=== PATIENT | male | born 1940 | race Caucasian/White ===

== ENCOUNTER 2020-03-18 14:59 | Outpatient (CLI) | payer MEDICARE, SELFPAY | END 2020-03-18 15:00 | disposition home or self-care (01) | LOC: ANHAUDIO 15:02 | PROVIDERS: PCP Internal Medicine; Visit Provider Otolaryngology | DX: H90.3 Sensorineural hearing loss, bilateral (principal) | CPT/HCPCS: 92557; 92567 ==

== ENCOUNTER 2020-05-15 11:30 | Outpatient (RCR) | payer MEDICARE, SELFPAY | END 2020-05-15 23:59 | disposition home or self-care (01) | LOC: ANHAUDIO 11:30 | PROVIDERS: PCP Internal Medicine | DX: Z46.1 Encounter for fitting and adjustment of hearing aid (principal) | CPT/HCPCS: 99199; V5261 ==

== ENCOUNTER 2020-06-20 15:54 | Inpatient (IN) | payer MEDICARE, SELFPAY ==
[2020-06-20] VITALS (32 sets, daily range): BP systolic 84–145; BP diastolic 60–91; PULSE 103–134; RESP 16–31; TEMP 36.2–36.8; O2SAT 90–100; BMI 27.7; BMI 27.6
--- NOTE | ~2020-06-20 | XR_ITS ---
EXAMINATION: XR chest 2V DATE: 06/20/2020 16:59 INDICATION: Shortness of breath. TECHNIQUE: Frontal and lateral views of the chest were obtained. COMPARISON: CT abdomen and pelvis 11/21/2018 FINDINGS: Calcified bilateral lung nodules and calcified hilar and mediastinal lymph nodes are consis tent with old granulomatous disease. No pleural effusion or pneumothorax. The heart size is normal. IMPRESSION: 1. No acute cardiopulmonary disease. Reviewed, dictated and finalized at location A. ICE VOLUNTEER COORDINATOR
--- NOTE | ~2020-06-20 | CT_ITS ---
EXAMINATION: CTA chest PE abdomen pel DATE: 06/20/2020 18:20 INDICATION: Shortness of breath. Lower abdominal pain. TECHNIQUE: Computed tomography angiography (CTA) of the chest was performed with 100 mL Omnipaque-350 intravenous contrast timed to evaluate the pulmonary arteries. Coronal maximum intensity projection 3D-reconstructions were created by the technologist. Computed tomography (CT) of the abdomen and pelv is was performed with intravenous contrast. Automated exposure control and iterative reconstruction t echnique were employed. The dose-length product was 1015.11 mGy-cm. COMPARISON: CT abdomen and pelvis 11/21/2018 FINDINGS: CTA chest: There is mild scarring at the lung apices. Calcified pulmonary nodules and calcified hilar and mediastinal lymph nodes are consistent with old granulomatous disease. There are [place] in right lower lobe, consistent with mild pneumonia. No pleural effusion. The heart size is no rmal. There are coronary artery calcifications. No pericardial effusion. There are calcifications of the aortic valve. There is no pulmonary embolus. There is a small sliding hiatal hernia. CT abdomen and pelvis: Calcifications in the liver and spleen are consistent with old granulomatous d isease. There are changes of cholecystectomy. The pancreas and adrenal glands are normal. There are c ysts in the kidneys measuring up to 16 mm on the right. There is a 3 mm stone in left kidney. The pro state is mildly enlarged. There are no dilated loops of bowel. The appendix is normal. There are no p athologically enlarged lymph nodes. There is no free intraperitoneal fluid. There is severe lumbar sp ondylosis. IMPRESSION: 1. No pulmonary embolus. 2. Mild pneumonia in right lower lobe. 3. Small sliding hiatal hernia. Reviewed, dictated and finalized at location A. ICATIONS DEVELOPMENT CONSULTANT
--- NOTE | 2020-06-20 16:19 | ECG_ITS ---
Measurements Intervals Sharon Rate: 106 P: SD: 0 QRS: 50 QRSD: 92 T: 50 QT: 320 QTc: 427 Interpretive Statements ATRIAL FIBRILLATION WITH RAPID VENTRICULAR RESPONSE BASELINE ARTIFACT- V1 ABNORMAL ECG Electronically Signed On 06-20-2020 17:12:06 [facility]OPE MINER by Chip Saavedra D.O.
--- NOTE | 2020-06-20 16:30 | PC.NURSE ---
patient brought back to ED room 1 with c/o dyspnea on exertion, abdomen pain and increased depression and increased stress. see initial notes. patient did admit to feeling depressed and thinking about suicide , but states he would never act on these thoughts. recently diagnosed with diabetes himself and cares for his with dementia. assessments documented. resting on stretcher. denies pain now. denies N/V/D. alert. oriented. family member in room. labs pending. on vehicle monitor technician. HR 100-110's.
--- NOTE | 2020-06-20 16:30 | PC.NURSE ---
Addendum entered by Bisi Casper RN 06/21/20 12:40: note time: 1645 Original Note: at bedside to have discussion with patient regarding his depression and statements made to admission RN. son in room also. patient states that his depression is increased due to new diagnosis of diabetes and his ongoing care of his with dementia. he does think about not waking up but does not have a plan to harm himself or his . just feels overwhelmed with life at this time. does have support from family. son in room seems receptive to patient's statements. patient reassured that diagnosis is manageable. provider updated. no need for closer monitoring at this time. son remaining in room.
--- NOTE | 2020-06-20 16:39 | ED.SOB ---
HPI - SOB/Dyspnea General Chief Complaint: Shortness of Breath/Dyspnea Stated Complaint: Pain All Over, SOB with Movement Time Seen by Provider: 06/20/20 16:37 Source: patient Mode of arrival: ambulatory Limitations: no limitations History of Present Illness HPI Narrative: Patient 70-year-old male complaining of shortness of breath, worse with exertion, been going on for a while but worse for the past few days. Patient also complaining of lower abdominal pain and right flank pain, 6 out of 10, nonradiating, described as dull ache. Patient mentioned to the nurse during screening that he was having thoughts of suicide but has no plans, states that he has been stressed lately and after just recently been diagnosed with diabetes and especially his has dementia and he has been taking care of her, states that he is just stress and has no intention or plan on hurting himself or others, who has not had that thought in their lives . Patient denies any chest pain, nausea, vomiting, diarrhea, fever or chills. Related Data Home Medications Medication Instructions Recorded Confirmed aspirin 81 mg tablet,delayed 81 mg PO DAILY 03/04/20 release atorvastatin 80 mg tablet 80 mg PO DAILY 03/04/20 clopidogrel 75 mg tablet 75 mg PO DAILY 03/04/20 ezetimibe 10 mg tablet 10 mg PO DAILY 03/04/20 irbesartan 150 mg tablet 150 mg PO DAILY 03/04/20 tamsulosin 0.4 mg capsule 0.4 mg PO DAILY 03/04/20 atenolol 50 mg DAILY 06/20/20 escitalopram oxalate 20 mg DAILY 06/20/20 metformin mg PO 06/20/20 nystatin TOPICAL 06/20/20 tamsulosin mg PO 06/20/20 Allergies Allergy/AdvReac Type Severity Reaction Status Date / Time No Known Allergies Allergy Unknown Unknown Verified 03/04/20 15:24 Review of Systems Review of Systems: All systems reviewed & are unremarkable except as noted in HPI and below Constitutional: Constitutional: Denies chills, Denies excessive sweating, Denies fatigue, Denies fever(s), Denies headache(s), Denies lethargy, Denies malaise, Denies weakness and Denies weight loss Eyes: Eyes: Denies blurry vision, Denies change in vision and Denies loss of vision ENT: Denies dizziness, Denies ear discharge, Denies headache(s), Denies lip swelling, Denies epistaxis, Denies nasal congestion, Denies neck pain, Denies throat swelling and Denies tongue swelling Cardiovascular: Cardiovascular: Denies chest pain, Denies chest pain at rest, Denies chest pain with activity, Denies diaphoresis, Denies rapid heart rate, Denies edema, Denies irregular heart rhythm, Denies lightheadedness and Denies palpitations Respiratory: Respiratory: Denies chest congestion, Denies cough and Denies hemoptysis Gastrointestinal: Gastrointestinal: Denies melena, Denies hematochezia, Denies diarrhea, Denies nausea, Denies vomiting and Denies hematemesis Musculoskeletal: Musculoskeletal: Denies abnormal gait, Denies deformity, Denies joint swelling, Denies limited range of motion, Denies neck pain and Denies numbness Neurologic: Denies Abnormal speech present, Denies abnormal gait, Denies confusion, Denies dizziness, Denies headache(s), Denies focal weakness, Denies loss of vision, Denies numbness, Denies Other visual disturbances, Denies Sensory deficit (Neuro) and Denies weakness Psychiatric: Psychiatric: Denies confusion, Denies depression, Denies auditory hallucinations, Denies homicidal ideation and Denies suicidal ideation Endocrine: Endocrine: Denies cold intolerance, Denies excessive sweating, Denies fatigue, Denies heat intolerance and Denies palpitations Hematologic/Lymphatic: Hematologic/Lymphatic: Denies easy bleeding and Denies easy bruising Allergic/Immunologic: Allergic/Immunologic: Denies lip swelling, Denies throat swelling and Denies tongue swelling Exam Const: General: cooperative, healthy appearing, comfortable, no acute distress, well developed, alert and awake; No confusion Orientation/consciousness: oriented to person, oriented to place,
[2020-06-20 16:53] LABS: Basophils Absolute Auto 0.1 K/mm3 (0.0-0.1); Basophils Percent Auto 0.4 % (0.2-1.2); Eosinophils Absolute Auto 0.1 K/mm3 (0-0.3); Eosinophils Percent Auto 0.7 % (0-4.4); Hematocrit 34.1 % (42.0-52.0); Hemoglobin 11.3 g/dL (14.0-18.0); Immature Granulocyte Absolute 0.05 K/mm3 (0.00-0.031); Immature Granulocyte Percent A 0.4 % (0-0.5); Lymphocytes Absolute Auto 1.89 K/mm3 (0.9-3.2); Mean Corpuscular HGB Conc 33.1 g/dl (32-36); Mean Corpuscular Volume 87.4 fl (80-100); Mean Platelet Volume 10.2 fl (7.4-10.4); Monocytes Absolute Auto 0.9 K/mm3 (0.1-0.6); Monocytes Percent Auto 6.8 % (2.6-8.5); Neutrophils Absolute Auto 10.5 K/mm3 (1.3-6.7); Neutrophils Percent Auto 77.7 % (45.5-73.1); Platelet Count Result 276 k/mm3 (150-375); Red Cell Distribution Width 13.9 % (11.5-14.5); White Blood Count 13.5 K/mm3 (4.5-10.0)
--- NOTE | 2020-06-20 17:00 | PC.NURSE ---
EKG done. shows afib. patient in ST on monitor. patient assisted to stand at bedside. HR ST in 150's. aware. strips on chart.
[2020-06-20 17:14] LABS: Anion Gap 12 mmol/L (8-16); Blood Urea Nitrogen 49 mg/dL (9-20); Calcium 8.2 mg/dL (8.4-10.2); Carbon Dioxide 22 mmol/L (22-30); Chloride 103 mmol/L (98-107); Estimated CRCL calculation 51 ml/min; Estimated Glomerular Filt Rate > 60; Glucose 163 mg/dL (75-110); Potassium 4.5 mmol/L (3.4-5.0); Sodium 137 mmol/L (137-145)
[2020-06-20 17:24] LABS: Alveolar/Arterial O2 Gradient 21.6 mmHg; Base Excess ABG -2.4 mEq/l (+/-2.0); Carboxyhemoglobin 0.3 % THb (0-2.0); Device ROOM AIR; Fractional Inspired Oxygen 21 %; HCO3 ABG 20.3 mEq/l (22.0-26.0); Methemoglobin ABG 0.4 %THb (0-1.5); Modified Allen's Test Pass; Oxygen Content ABG 15.8 %vol (16.0-22.0); Oxygen Saturation ABG 97.6 % (95.0-100.0); Oxyhemoglobin 96.2 % THb (90.0-100.0); PO2 ABG 93.4 mmHg (80.0-100.0); PO2 FiO2 Ratio Arterial Blood 4.45 %; Reduced Hemoglobin 3.1 %THb (0-5.0); Site Drawn LEFT RADIAL; Total Hemoglobin 11.6 g/dL (12.0-18.0); pH ABG 7.464 (7.350-7.450)
--- NOTE | 2020-06-20 17:26 | PC.NURSE ---
provider in room.
[2020-06-20 17:30] LABS: NT Pro B Type Natriuretic Pept 85 PG/ML (5-100); Troponin I < 0.012 ng/mL (0.000-0.034)
--- NOTE | 2020-06-20 17:45 | PC.NURSE ---
patient assisted to stand at bedside to void. HR up to 150. patient aware to not get out of bed alone. side rails up x 2. back on cardiac cath lab manager. call light in reach. discussed current treatment plan with patient and family member.
[2020-06-20 18:11] LABS: Prothrombin Time 13.8 Seconds (11.1-14.7)
[2020-06-20 18:12] LABS: Partial Thromboplastin Time 27.8 SECONDS (22.3-36.8)
[2020-06-20 18:14] LABS: D Dimer 0.51 ug/mL (<0.48)
[2020-06-20 18:20] LABS: Lactic Acid Reflex 3.9 mmol/L (0.7-2.1)
--- NOTE | 2020-06-20 18:30 | PC.NURSE ---
patient given ice water. all tests resulted. waiting for further orders vs disposition from provider.
[2020-06-20] MEDS: LACTATED RINGERS 1,000 ML 999 ML IV CONT (19:09)
--- NOTE | 2020-06-20 20:30 | PC.NURSE ---
IVF and IV antibiotics started. all explained to patient and family member at bedside. reviewed CXR and CT of chest.
[2020-06-20 20:41] LABS: Glucose Point of Care 210 (65-105)
--- NOTE | 2020-06-20 21:00 | PC.NURSE ---
patient standing at bedside frequently to use urinal. states this started recently. diagnosed with diabetes recently. Hgb A1c 8.5 per his son. reviewed admission orders and diet order with son and patient.
[2020-06-20 21:07] LABS: Reflex Lactic Acid Yes or No Add Lactic
--- NOTE | 2020-06-20 22:00 | PC.NURSE ---
IVF done. patient had total of 2600ml of LR plus IV antibiotics. resting on stretcher. on telecommunications network planner. watching football game. using call light for help to use urinal. family member went home. lights off per request. aware of current treatment plan. waiting for bed assignment for admission upstairs.
--- NOTE | 2020-06-20 22:23 | PC.NURSE ---
patient keeps removing his BP cuff. assigned to room 202. SBAR faxed and tubed.
--- NOTE | 2020-06-20 22:47 | PC.NURSE ---
report given to Angélica in IMU. will transfer patient to 202.
--- NOTE | 2020-06-20 23:08 | ADMGEN ---
This patient, Robert Brady, was admitted to IMU Room 202-01. Patient/family oriented to hospital policies and general routines including ID bracelet, bed and alarms, visiting hours, pain management, procedures, bathroom and other care routines, personal items, smoking policy, room service/diet, and visiting hours. Information on how to activate the Rapid Response Team has been discussed. Patient/Family are encouraged to report perceived risks to care and to ask questions if they do not understand what they are told or what they should do.
[2020-06-21] VITALS (23 sets, daily range): BP systolic 104–156; BP diastolic 57–77; PULSE 70–118; RESP 14–20; TEMP 36–37; O2SAT 98–100
[2020-06-21] MEDS: LACTATED RINGERS 1,000 ML 100 ML IV CONT ×2 (00:03→18:06)
[2020-06-21 04:26] LABS: Hemoglobin 7.4 g/dL (14.0-18.0); Mean Corpuscular HGB Conc 32.2 g/dl (32-36); Mean Corpuscular Hemoglobin 29.1 pg (26-34); Mean Corpuscular Volume 90.6 fl (80-100); Mean Platelet Volume 10.3 fl (7.4-10.4); Platelet Count Result 211 k/mm3 (150-375); Red Blood Count 2.54 M/mm3 (4.6-6.20); Red Cell Distribution Width 14.3 % (11.5-14.5); White Blood Count 10.9 K/mm3 (4.5-10.0)
[2020-06-21 04:46] LABS: Anion Gap 5 mmol/L (8-16); Blood Urea Nitrogen 50 mg/dL (9-20); Calcium 7.5 mg/dL (8.4-10.2); Carbon Dioxide 25 mmol/L (22-30); Chloride 107 mmol/L (98-107); Estimated CRCL calculation 63 ml/min; Estimated Glomerular Filt Rate > 60; Glucose 153 mg/dL (75-110); Lactic Acid Reflex 1.7 mmol/L (0.7-2.1); Potassium 4.7 mmol/L (3.4-5.0); Sodium 137 mmol/L (137-145)
--- NOTE | 2020-06-21 07:31 | PM.IMHP ---
H&P: HPI History of Present Illness Date/Time: 06/21/20 05:00 Chief Complaint: Shortness of breath Narrative: Robert Brady is a 80 year old male with a past medical history of coronary artery disease, recent carotid stent placement, essential hypertension, hiatal hernia, and prior esophageal stricture who presented to the ER with dyspnea on exertion. The patient reports that he has been having dyspnea on exertion for a while but it is been worse over the last 7 days. He denies any palpitations or chest pain. He has not noticed any cough, congestion or lower extremity swelling. He has not had any recent ill contacts and denies COVID-19 exposure. He has been staying at home and if he does half to go out he does wear a mask practices social distancing. He was reporting some lower abdominal pain and right flank pain in the ER. He reported the pain was a 6/10 in intensity and nonradiating. He reports that the pain was a dull ache. At the time my evaluation the patient denied having any abdominal pain but did admit to having some abdominal pain yesterday. He denied any eliciting or relieving factors. He has been noticing an increased number of stools each day for the last week. He reports that the stools are darker than usual. It has been associated with some lightheadedness and worsening dyspnea on exertion. He reported that last evening when he would try did get up to use the urinal he would feel lightheaded. He has been using the urinal more frequently for the last several weeks he. He was recently diagnosed with type 2 diabetes mellitus with a hemoglobin A1c of 8.5 as outpatient. He was started on metformin. His glucoses were in target range in the ER. He reports that since his diabetes diagnosis he has had increased urinary frequency with sensation of incomplete bladder emptying. He denies any hematuria or dysuria. He is urinating about 100 mL at a time. He reports increased stress at home as the is suffering from dementia. He had reported some suicidal thoughts and does have an access to a gun at home. He reports that he has just been under increased stress and has no intention of actually hurting himself or anyone else. He denies any nausea, vomiting or diarrhea. He has not noticed any fevers or chills. He does have a history of esophageal stricture but denies any difficulty swallowing food or sore throat. He has not been having any symptoms of heartburn. Review of Systems Review of Systems: Narrative: 12 systems were reviewed with pertinent positives and negatives per HPI. Except as documented in the HPI, all other systems were reviewed and are negative. [facility] Past Medical History Medical History (Updated 06/21/20 @ 07:59 by Sandie Burks DO) Aortic stenosis BPH (benign prostatic hyperplasia) Carotid stenosis Depression Diabetes mellitus Hemoglobin A1c of 8.5 Essential hypertension Hearing loss Hiatal hernia Hyperlipidemia Surgical History Surgical History (Updated 06/21/20 @ 07:56 by Sandie Burks DO) History of bilateral cataract extraction Approximately 2009 History of laparoscopic cholecystectomy History of right common carotid artery stent placement History of total left knee replacement Status post dilatation of esophageal stricture Family History Family History Mother Cerebrovascular accident Social History Social History (Updated 06/21/20 @ 08:12 by Sandie Burks DO) Social History: The patient and his have been for the last 55 years. They have 3 adult sons who are in good health. He is a former smoker quit smoking about 25 years ago. He used to drink heavily in his youth but has not drank heavily in the last several years. He drinks about 6 beers a year at this time. He denies any illicit substance use. He served in the [employer] for 3 years and then retired from [employer]. Primary care physician:
[2020-06-21 07:51] LABS: Glucose Point of Care 168 (65-105)
[2020-06-21 08:34] LABS: IFOB Positive Control Positive; Immunochemical Fecal Occult Bl Positive (N)
[2020-06-21 09:48] LABS: Immature Reticulocyte Fraction 17.8 % (3.0-15.9); Reticulocyte Hemoglobin Conten 33.3 pg (28.2-35.7); Reticulocyte Percent 2.79 % (0.7-4.3); Reticulocytes Absolute 0.07 B/L (32.2-175.7)
[2020-06-21] MEDS: PANTOPRAZOLE SODIUM IV 40 MG VIAL IV PUSH ×2 (10:24→20:33)
[2020-06-21] MEDS: ATORVASTATIN 40 MG TABLET 80 MG PO (10:25)
[2020-06-21] MEDS: EZETIMIBE 10 MG TABLET PO (10:25)
[2020-06-21] MEDS: TAMSULOSIN HCL 0.4 MG CAPSULE PO (10:25)
[2020-06-21 10:53] LABS: Lactate Dehydrogenase 311 U/L (313-618)
[2020-06-21 11:00] LABS: Transferrin 171 mg/dL (206-381)
[2020-06-21 11:17] LABS: Iron 151 ug/dL (49-181)
[2020-06-21 11:27] LABS: Percent Iron Saturation 60 % (20-50)
[2020-06-21 12:00] LABS: Folic Acid 6.5 ng/mL (2.76->20)
[2020-06-21 12:51] LABS: Glucose Point of Care 202 (65-105)
[2020-06-21] MEDS: METOPROLOL TARTRATE 25 MG TABLET PO (13:37)
--- NOTE | 2020-06-21 14:28 | PM.IMPN ---
Progress Note: A&P Assessment and Plan (1) Gastrointestinal bleeding: Qualifiers: GI bleed type/associated pathology: melena Qualified Code(s): K92.1 - Melena Code(s): K92.2 - Gastrointestinal hemorrhage, unspecified Status: Acute Assessment and Plan: PPI therapy bowel rest IV fluid serial H&H and transfuse as needed GI evaluation (2) Pneumonia: Qualifiers: Laterality: unspecified laterality Lung location: unspecified part of lung Pneumonia type: due to unspecified organism Qualified Code(s): J18.9 - Pneumonia, unspecified organism Code(s): J18.9 - Pneumonia, unspecified organism Status: Acute Assessment and Plan: continue azithromycin and ceftriaxone COVID-19 swab results pending (3) Atrial fibrillation with rapid ventricular response: Code(s): I48.91 - Unspecified atrial fibrillation Status: Acute Assessment and Plan: resolved with fluids and transfusion no anticoagulation or anti-platelet agents due to gastrointestinal bleeding (4) Sepsis: Qualifiers: Sepsis acute organ dysfunction status: unspecified Sepsis type: sepsis due to unspecified organism Qualified Code(s): A41.9 - Sepsis, unspecified organism Code(s): A41.9 - Sepsis, unspecified organism Status: Acute Assessment and Plan: resolved (5) Anemia: Qualifiers: Anemia type: unspecified type Qualified Code(s): D64.9 - Anemia, unspecified Code(s): D64.9 - Anemia, unspecified Status: Acute Assessment and Plan: due to acute GI blood loss transfuse 3 units packed cells serial H&H (6) Benign prostatic hyperplasia with urinary frequency: Code(s): N40.1 - Benign prostatic hyperplasia with lower urinary tract symptoms; R35.0 - Frequency of micturition Status: Acute (7) Diabetes mellitus: Qualifiers: Diabetes mellitus type: type 2 Diabetes mellitus chcf insulin use: without manager terminal use Diabetes mellitus complication status: without complication Qualified Code(s): E11.9 - Type 2 diabetes mellitus without complications Code(s): E11.9 - Type 2 diabetes mellitus without complications Status: Inactive (8) Lactic acidosis: Code(s): E87.2 - Acidosis Status: Acute Assessment and Plan: resolved (9) Depression: Qualifiers: Depression Type: major depressive disorder Major depression recurrence: single episode Active/Remission status: currently active Major depression episode severity: moderate Qualified Code(s): F32.1 - Major depressive disorder, single episode, moderate Code(s): F32.9 - Major depressive disorder, single episode, unspecified Status: Inactive Subjective Date/time seen: 06/21/20 14:28 Interval history: Admitted June 20 with gastrointestinal bleeding. Weakness. 06/21 feels weak and short of breath with any activity. Denied pain. Stools dark. Review of Systems Review of Systems: All systems reviewed & are unremarkable except as noted in HPI and below Exam Narrative: Exam Narrative: HEENT: EOMI, PERRL, sclerae nonicteric, pharyngeal mucosa pink and intact NECK: No JVD CHEST: Coarse breath sounds right anterior chest Normal effort. HEART: NL S1/S2, regular, no murmur ABDOMEN: BS+, soft, nontender, no mass, no bruits EXTREMITIES: No cyanosis, edema, or clubbing NEUROLOGIC: CN intact and symmetric to inspection. MUSCULOSKELETAL: Tone and strength symmetric. PSYCH: Alert. Oriented to person, place, and time. Objective Data Vital Signs Vital Signs: Vital Signs - 24 hr 06/20/20 15:58 06/20/20 16:18 06/20/20 16:19 Temperature 97.1 F L Pulse Rate 109 H 112 H 105 H Respiratory Rate 24 H 28 H 21 H Blood Pressure 110/66 144/91 H Pulse Oximetry 98 90 97 06/20/20 16:30 06/20/20 16:31 06/20/20 16:58 Temperature Pulse Rate 108 H 114 H 108 H Respiratory Rate 28 H
[2020-06-21 17:40] LABS: Hemoglobin 11.1 g/dL (14.0-18.0)
[2020-06-21 17:48] LABS: Glucose Point of Care 157 (65-105)
[2020-06-21] MEDS: CYANOCOBALAMIN INJ 1,000 MCG/ML VIAL 1000 MCG IM (18:06)
[2020-06-21 20:46] LABS: Glucose Point of Care 162 (65-105)
[2020-06-21 21:55] LABS: Hematocrit 28.4 % (42.0-52.0); Hemoglobin 9.7 g/dL (14.0-18.0)
[2020-06-22] VITALS (16 sets, daily range): BP systolic 95–129; BP diastolic 49–72; PULSE 80–108; RESP 14–20; TEMP 36–36.7; O2SAT 93–100
[2020-06-22] MEDS: LACTATED RINGERS 1,000 ML 100 ML IV CONT ×2 (04:45→13:44)
[2020-06-22 05:25] LABS: Hematocrit 26.8 % (42.0-52.0); Mean Corpuscular HGB Conc 33.6 g/dl (32-36); Mean Corpuscular Hemoglobin 30.1 pg (26-34); Mean Corpuscular Volume 89.6 fl (80-100); Mean Platelet Volume 10.6 fl (7.4-10.4); Platelet Count Result 152 k/mm3 (150-375); Red Blood Count 2.99 M/mm3 (4.6-6.20); White Blood Count 11.5 K/mm3 (4.5-10.0)
[2020-06-22 05:37] LABS: Anion Gap 2 mmol/L (8-16); Blood Urea Nitrogen 40 mg/dL (9-20); Calcium 7.7 mg/dL (8.4-10.2); Carbon Dioxide 27 mmol/L (22-30); Chloride 107 mmol/L (98-107); Estimated CRCL calculation 71 ml/min; Estimated Glomerular Filt Rate > 60; Glucose 158 mg/dL (75-110); Sodium 136 mmol/L (137-145)
[2020-06-22 08:21] LABS: Glucose Point of Care 136 (65-105)
[2020-06-22] MEDS: PANTOPRAZOLE SODIUM IV 40 MG VIAL IV PUSH ×2 (08:25→19:49)
[2020-06-22] MEDS: ATORVASTATIN 40 MG TABLET 80 MG PO (08:25)
[2020-06-22] MEDS: METOPROLOL TARTRATE 25 MG TABLET PO ×2 (08:25→19:49)
[2020-06-22] MEDS: EZETIMIBE 10 MG TABLET PO (08:25)
[2020-06-22] MEDS: TAMSULOSIN HCL 0.4 MG CAPSULE PO (08:25)
[2020-06-22] MEDS: FOLIC ACID 1 MG/0.2 ML INJ IV PUSH (10:48)
--- NOTE | 2020-06-22 12:50 | PM.IMPN ---
Progress Note: A&P Assessment and Plan (1) Gastrointestinal bleeding: Qualifiers: GI bleed type/associated pathology: melena Qualified Code(s): K92.1 - Melena Code(s): K92.2 - Gastrointestinal hemorrhage, unspecified Status: Acute Assessment and Plan: PPI therapy sp blood tranfusion GI evaluation hold plavix (2) Pneumonia: Qualifiers: Laterality: unspecified laterality Lung location: unspecified part of lung Pneumonia type: due to unspecified organism Qualified Code(s): J18.9 - Pneumonia, unspecified organism Code(s): J18.9 - Pneumonia, unspecified organism Status: Acute Assessment and Plan: continue azithromycin and ceftriaxone COVID-19 swab results pending (3) Atrial fibrillation with rapid ventricular response: Code(s): I48.91 - Unspecified atrial fibrillation Status: Acute Assessment and Plan: resolved with fluids and transfusion no anticoagulation or anti-platelet agents due to gastrointestinal bleeding (4) Sepsis: Qualifiers: Sepsis acute organ dysfunction status: unspecified Sepsis type: sepsis due to unspecified organism Qualified Code(s): A41.9 - Sepsis, unspecified organism Code(s): A41.9 - Sepsis, unspecified organism Status: Acute Assessment and Plan: resolved (5) Anemia: Qualifiers: Anemia type: unspecified type Qualified Code(s): D64.9 - Anemia, unspecified Code(s): D64.9 - Anemia, unspecified Status: Acute Assessment and Plan: due to acute GI blood loss transfuse 3 units packed cells serial H&H (6) Benign prostatic hyperplasia with urinary frequency: Code(s): N40.1 - Benign prostatic hyperplasia with lower urinary tract symptoms; R35.0 - Frequency of micturition Status: Acute (7) Diabetes mellitus: Qualifiers: Diabetes mellitus type: type 2 Diabetes mellitus rat exterminator insulin use: without senior living use Diabetes mellitus complication status: without complication Qualified Code(s): E11.9 - Type 2 diabetes mellitus without complications Code(s): E11.9 - Type 2 diabetes mellitus without complications Status: Inactive (8) Lactic acidosis: Code(s): E87.2 - Acidosis Status: Acute Assessment and Plan: resolved (9) Depression: Qualifiers: Depression Type: major depressive disorder Major depression recurrence: single episode Active/Remission status: currently active Major depression episode severity: moderate Qualified Code(s): F32.1 - Major depressive disorder, single episode, moderate Code(s): F32.9 - Major depressive disorder, single episode, unspecified Status: Inactive Subjective Date/time seen: 06/22/20 12:50 Interval history: Admitted June 20 with gastrointestinal bleeding. Weakness. Awaiting covid result. hb is 9, few black tarry bowel movements, had blood transfusion, pt is awaiting to see GI doctor, pt is currently npo and is pt feels hungry. Pt can eat pt for scopes tomorrow. FOBT is positive. Review of Systems Review of Systems: All systems reviewed & are unremarkable except as noted in HPI and below Exam Narrative: Exam Narrative: Pt is in restroom Looks comfortable Limited exam Objective Data Vital Signs Vital Signs: Vital Signs - 24 hr 06/21/20 13:32 06/21/20 13:37 06/21/20 13:47 Temperature 36.9 C 36.9 C Pulse Rate 110 H 110 H 114 H Respiratory Rate 14 16 Blood Pressure 156/77 H 147/71 H Pulse Oximetry 100 98 06/21/20 14:00 06/21/20 14:50 06/21/20 14:51 Temperature 36.2 C L 36.2 C L Pulse Rate 95 97 94 Respiratory Rate 14 16 Blood Pressure 139/62 139/62 Pulse Oximetry 100 100 06/21/20 15:06 06/21/20 16:00 06/21/20 17:08 Temperature 36.9 C 37.0 C Pulse Rate 95 96 103 H Respiratory Rate 14 20 Blood Pressure 152/66 H 147/70 H Pulse Oximetry 100 99 06/21/20 19:53
--- NOTE | 2020-06-22 15:12 | WPDGICN ---
Assessment and Plan Assessment and plan (1) Gastrointestinal bleeding: Qualifiers: GI bleed type/associated pathology: melena Qualified Code(s): K92.1 - Melena Code(s): K92.2 - Gastrointestinal hemorrhage, unspecified Status: Acute Assessment and Plan: on ppi bid will proceed with egd tomorrow blood thinners on hold for now (2) Acute blood loss anemia: Code(s): D62 - Acute posthemorrhagic anemia Status: Acute Assessment and Plan: received blood transfusion and feeling better trend h/h (3) Atrial fibrillation with rapid ventricular response: Code(s): I48.91 - Unspecified atrial fibrillation Status: Acute Assessment and Plan: paroxysmal, monitor (4) Pneumonia: Qualifiers: Laterality: unspecified laterality Lung location: unspecified part of lung Pneumonia type: due to unspecified organism Qualified Code(s): J18.9 - Pneumonia, unspecified organism Code(s): J18.9 - Pneumonia, unspecified organism Status: Acute (5) Diabetes mellitus: Qualifiers: Diabetes mellitus type: type 2 Diabetes mellitus senior living insulin use: without senior living use Diabetes mellitus complication status: without complication Qualified Code(s): E11.9 - Type 2 diabetes mellitus without complications Code(s): E11.9 - Type 2 diabetes mellitus without complications Status: Acute Assessment and Plan: recent diagnosis GI Consult Note Consult date/time: 06/22/20 15:12 Reason for consult: gib, melena HPI: Robert Brady is a 80 year old male with history of coronary artery disease on plavix and aspirin, carotid stent placement, hypertension, hiatal hernia, and prior esophageal stricture who came to the ER with progressive dyspnea on exertion for last 7 days, also noted dark tarry stools and feeling lightheaded. On arrival found to be anemic with hb 7.4 (recently was normal), received blood transfusion and now is feeling much better. He has history of ulcers but is not taking any ppi in regular basis. Also recently diagnosed with type 2 diabetes mellitus with a hemoglobin A1c of 8.[address] scan showed no pulmonary embolus, mild pneumonia in right lower lobe and small sliding hiatal hernia. Review of Systems Constitutional: Constitutional: Reports weakness Eyes: Eyes: Reports no additional eye complaints ENT: Reports system reviewed and no additional complaints, except as documented Cardiovascular: Cardiovascular: Reports lightheadedness Respiratory: Respiratory: Reports dyspnea on exertion Gastrointestinal: Gastrointestinal: Reports melena Genitourinary: Genitourinary: Denies dysuria Musculoskeletal: Musculoskeletal: Reports back pain Integumentary/Breasts: Skin/Breast: Denies dry skin Neurologic: Denies numbness Psychiatric: Psychiatric: Denies confusion Endocrine: Endocrine: Reports fatigue [facility] Past Medical History Medical History (Updated 06/22/20 @ 15:17 by Davi Sutton MD) Acute blood loss anemia Aortic stenosis BPH (benign prostatic hyperplasia) Carotid stenosis Depression Diabetes mellitus Hemoglobin A1c of 8.5 Essential hypertension Hearing loss Hiatal hernia Hyperlipidemia Surgical History Surgical History (Updated 06/21/20 @ 07:56 by Sandie Burks DO) History of bilateral cataract extraction Approximately 2009 History of laparoscopic cholecystectomy History of right common carotid artery stent placement History of total left knee replacement Status post dilatation of esophageal stricture Family History Family History Mother Cerebrovascular accident Social History Social History (Updated 06/21/20 @ 08:12 by Sandie Burks DO) Social History: The patient and his have been for the last 55 years. They have 3 adult sons who are in good health. He is a former smoker quit smoking abou
[2020-06-22 16:33] LABS: Glucose Point of Care 150 (65-105)
[2020-06-22 18:28] LABS: Glucose Point of Care 151 (65-105)
[2020-06-22 19:06] LABS: SARS-CoV-2 RNA PCR Negative
[2020-06-22] MEDS: LACTATED RINGERS 1,000 ML 70 ML IV CONT (19:50)
[2020-06-22 20:30] LABS: Glucose Point of Care 123 (65-105)
[2020-06-23] VITALS (17 sets, daily range): BP systolic 80–122; BP diastolic 33–65; PULSE 69–90; RESP 19–27; TEMP 35.6–36.6; O2SAT 97–100
[2020-06-23 05:16] LABS: Hematocrit 24.4 % (42.0-52.0); Hemoglobin 8.1 g/dL (14.0-18.0); Mean Corpuscular HGB Conc 33.2 g/dl (32-36); Mean Corpuscular Hemoglobin 29.8 pg (26-34); Mean Corpuscular Volume 89.7 fl (80-100); Mean Platelet Volume 10.4 fl (7.4-10.4); Platelet Count Result 163 k/mm3 (150-375); Red Blood Count 2.72 M/mm3 (4.6-6.20); Red Cell Distribution Width 15.4 % (11.5-14.5); White Blood Count 9.8 K/mm3 (4.5-10.0)
[2020-06-23 05:47] LABS: Anion Gap 1 mmol/L (8-16); Blood Urea Nitrogen 22 mg/dL (9-20); Calcium 7.5 mg/dL (8.4-10.2); Carbon Dioxide 28 mmol/L (22-30); Chloride 106 mmol/L (98-107); Estimated CRCL calculation 71 ml/min; Estimated Glomerular Filt Rate > 60; Glucose 121 mg/dL (75-110); Potassium 3.9 mmol/L (3.4-5.0); Sodium 135 mmol/L (137-145)
[2020-06-23 08:30] LABS: Glucose Point of Care 125 (65-105)
[2020-06-23] MEDS: PANTOPRAZOLE SODIUM IV 40 MG VIAL IV PUSH (09:15)
[2020-06-23] MEDS: METOPROLOL TARTRATE 25 MG TABLET PO ×2 (09:16→20:01)
[2020-06-23 10:03] LABS: Glucose Point of Care 135 (65-105)
[2020-06-23] MEDS: LACTATED RINGERS 1,000 ML 150 ML IV CONT (10:08)
--- NOTE | 2020-06-23 11:10 | WPDANESEPPF ---
Anes - Initial Pre Proc Eval Procedure: Operation Date: 06/23/20 11:00 Proposed Procedures p Esophagogastroduodenoscopy - Davi Sutton MD Date/Time: 06/23/20 11:10 Surgeon: Sandie Burks DO Pre Op Diagnosis: SEPSIS, ATRIAL FIB WITH RVR, PNEUMONIA Patient Data Age: 80 Gender: M Height: 5 ft 9 in Weight: 86 kg Last Vital Signs Temp 97.5 F L 06/23/20 10:06 Pulse 81 06/23/20 10:06 Resp 20 06/23/20 10:06 BP 122/65 06/23/20 10:06 Pulse Ox 99 06/23/20 10:06 Allergies Allergy/AdvReac Type Severity Reaction Status Date / Time No Known Allergies Allergy Unknown Unknown Verified 06/23/20 09:56 Home Medications Medication Instructions Recorded Confirmed Type aspirin 81 mg tablet,delayed 81 mg PO DAILY 03/04/20 06/20/20 History release atorvastatin 80 mg tablet 80 mg PO DAILY 03/04/20 06/20/20 History clopidogrel 75 mg tablet 75 mg PO DAILY 03/04/20 06/20/20 History ezetimibe 10 mg tablet 10 mg PO DAILY 03/04/20 06/20/20 History irbesartan 150 mg tablet 150 mg PO DAILY 03/04/20 06/20/20 History tamsulosin 0.4 mg capsule 0.4 mg PO DAILY 03/04/20 06/20/20 History metformin 500 mg PO BID 06/20/20 06/20/20 History irbesartan [Avapro] 150 mg PO DAILY 06/21/20 06/21/20 History Laboratory Tests 06/21/20 06/22/20 06/22/20 07:25 13:37 15:40 WBC RBC Hgb Hct MCV MCH MCHC RDW Plt Count MPV Sodium Potassium Chloride Carbon Dioxide Anion Gap BUN Creatinine Estim Creat Clear Calc Estimated GFR Glucose POC Capillary Glucose 151 mg/dl H mg/dl 150 mg/dl H mg/dl (65-105) (65-105) Calcium SARS-CoV-2 RNA (RT-PCR) Negative 06/22/20 06/23/20 06/23/20 20:28 04:30 04:30 WBC 9.8 K/mm3 K/mm3 (4.5-10.0) RBC 2.72 M/mm3 L M/mm3 (4.6-6.20) Hgb 8.1 g/dL L g/dL (14.0-18.0) Hct 24.4 % L % (42.0-52.0) MCV 89.7 fl fl (80-100) MCH 29.8 pg pg (26-34) MCHC 33.2 g/dl g/dl (32-36) RDW 15.4 % H % (11.5-14.5) Plt Count 163 k/mm3 k/mm3 (150-375) MPV 10.4 fl fl (7.4-10.4) Sodium 135 mmol/L L mmol/L (137-145) Potassium 3.9 mmol/L mmol/L (3.4-5.0) Chloride 106 mmol/L mmol/L (98-107) Carbon Dioxide 28 mmol/L mmol/L (22-30) Anion Gap 1 mmol/L L mmol/L (8-16) BUN 22 mg/dL H D mg/dL (9-20) Creatinine 0.70 mg/dL mg/dL (0.7-1.3) Estim Creat Clear Calc 71 ml/min ml/min Estimated GFR > 60 (59 - ) Glucose 121 mg/dL H mg/dL (75-110) POC Capillary Glucose 123 mg/dl H mg/dl (65-105) Calcium 7.5 mg/dL L mg/dL (8.4-10.2) SARS-CoV-2 RNA (RT-PCR) 06/23/20 06/23/20 07:45 10:01 WBC RBC Hgb Hct MCV MCH MCHC RDW Plt Count MPV Sodium Potassium Chloride Carbon Dioxide Anion Gap BUN Creatinine Estim Creat Clear Calc Estimated GFR Glucose POC Capillary Glucose 125 mg/dl H mg/dl 135 mg/dl H mg/dl (65-105) (65-105) Calcium SARS-CoV-2 RNA (RT-PCR) Patient hx anesthesia problems: none Family hx anesthesia problems: none PMFSH Past Medical History Medical History (Updated 06/22/20 @ 15:17 by Davi Sutton MD) Acute blood loss anemia Aortic stenosis BPH (benign prostatic hyperplasia) Carotid stenosis Depression Diabetes mellitus Hemoglobin A1c of 8.5 Essential hypertension Hearing loss Hiatal hernia Hyperlipidemia Surgical History
[2020-06-23] MEDS: BENZOCAINE (*SP) 60 ML SPRAY CAN (HURRICAINE) 1 SPRAY MUCOUS MEM (11:30)
[2020-06-23 12:29] LABS: Glucose Point of Care 153 (65-105)
[2020-06-23] MEDS: FOLIC ACID 1 MG/0.2 ML INJ IV PUSH (12:59)
[2020-06-23] MEDS: TAMSULOSIN HCL 0.4 MG CAPSULE PO (13:00)
[2020-06-23] MEDS: EZETIMIBE 10 MG TABLET PO (13:00)
[2020-06-23] MEDS: ATORVASTATIN 40 MG TABLET 80 MG PO (13:00)
--- NOTE | 2020-06-23 15:20 | PM.IMPN ---
Progress Note: A&P Assessment and Plan (1) Gastrointestinal bleeding: Qualifiers: GI bleed type/associated pathology: melena Qualified Code(s): K92.1 - Melena Code(s): K92.2 - Gastrointestinal hemorrhage, unspecified Status: Acute Assessment and Plan: PPI therapy sp blood tranfusion Sp EGD showing gastrits, esophagitis and hiatial hernia and DU stricture hold plavix (2) Pneumonia: Qualifiers: Laterality: unspecified laterality Lung location: unspecified part of lung Pneumonia type: due to unspecified organism Qualified Code(s): J18.9 - Pneumonia, unspecified organism Code(s): J18.9 - Pneumonia, unspecified organism Status: Acute Assessment and Plan: continue azithromycin and ceftriaxone WCC is NL COVID is negative DC tomorrow (3) Atrial fibrillation with rapid ventricular response: Code(s): I48.91 - Unspecified atrial fibrillation Status: Acute Assessment and Plan: resolved with fluids and transfusion no anticoagulation or anti-platelet agents due to gastrointestinal bleeding (4) Sepsis: Qualifiers: Sepsis acute organ dysfunction status: unspecified Sepsis type: sepsis due to unspecified organism Qualified Code(s): A41.9 - Sepsis, unspecified organism Code(s): A41.9 - Sepsis, unspecified organism Status: Acute Assessment and Plan: resolved (5) Anemia: Qualifiers: Anemia type: unspecified type Qualified Code(s): D64.9 - Anemia, unspecified Code(s): D64.9 - Anemia, unspecified Status: Acute Assessment and Plan: due to acute GI blood loss transfuse 3 units packed cells serial H&H (6) Benign prostatic hyperplasia with urinary frequency: Code(s): N40.1 - Benign prostatic hyperplasia with lower urinary tract symptoms; R35.0 - Frequency of micturition Status: Acute (7) Diabetes mellitus: Qualifiers: Diabetes mellitus type: type 2 Diabetes mellitus chcf insulin use: without press tender long goods use Diabetes mellitus complication status: without complication Qualified Code(s): E11.9 - Type 2 diabetes mellitus without complications Code(s): E11.9 - Type 2 diabetes mellitus without complications Status: Acute (8) Lactic acidosis: Code(s): E87.2 - Acidosis Status: Acute Assessment and Plan: resolved (9) Depression: Qualifiers: Depression Type: major depressive disorder Major depression recurrence: single episode Active/Remission status: currently active Major depression episode severity: moderate Qualified Code(s): F32.1 - Major depressive disorder, single episode, moderate Code(s): F32.9 - Major depressive disorder, single episode, unspecified Status: Inactive Subjective Date/time seen: 06/23/20 15:20 Interval history: Admitted June 20 with gastrointestinal bleeding. Weakness. Sp EGD for FOBT is positive. found to have hiatal hernia, gastritis and esophagitis Review of Systems Review of Systems: All systems reviewed & are unremarkable except as noted in HPI and below Exam Const: General: cooperative and healthy appearing; No in distress Nutritional Appearance: overweight Orientation/consciousness: oriented to person HENMT: Head: normal to inspection Resp: Effort & Inspection: no respiratory distress Auscultation: no rhonchi and no wheezes Cardio: Rate: regular rate Rhythm: regular rhythm GI: Inspection: normal to inspection GI Palp: No abdominal tenderness, No Guarding due to palpation present (GI) and No Hepatomegaly present Auscultation: normal bowel sounds Neuro: General: oriented to person Objective Data Vital Signs Vital Signs: Vital Signs - 24 hr 06/22/20 16:00 06/22/20 18:00 06/22/20 19:49 Temperature 36.4 C Pulse Rate 84 102 H 84 Respiratory Rate 20 Blood Pressure 121/54 L Pulse Oximetry 100 06/22/20 20:0
[2020-06-23] MEDS: metFORMIN HCL XR 500 MG TAB.SR.24H PO (16:27)
[2020-06-23] MEDS: SUCRALFATE SUSP 100 MG/ML 10 ML UDC 1000 MG PO ×2 (16:27→20:02)
[2020-06-23 16:57] LABS: Glucose Point of Care 106 (65-105)
[2020-06-23 19:58] LABS: Glucose Point of Care 169 (65-105)
--- NOTE | 2020-06-23 22:30 | PC.NURSE ---
This patient, Robert Brady, was transferred to [ [id number]] on 06/23/20 at 2230. Personal belongings sent with patient. Report given to [ ]. Appropriate documentation sent with patient.
[2020-06-24 04:32] VITALS: BP 100/49; PULSE 84; RESP 18; TEMP 36.4; O2SAT 98
[2020-06-24] MEDS: SUCRALFATE SUSP 100 MG/ML 10 ML UDC 1000 MG PO (06:05)
[2020-06-24 06:16] LABS: Basophils Percent Auto 0.3 % (0.2-1.2); Eosinophils Absolute Auto 0.3 K/mm3 (0-0.3); Eosinophils Percent Auto 2.8 % (0-4.4); Hematocrit 24.2 % (42.0-52.0); Immature Granulocyte Absolute 0.05 K/mm3 (0.00-0.031); Immature Granulocyte Percent A 0.6 % (0-0.5); Lymphocytes Absolute Auto 1.64 K/mm3 (0.9-3.2); Lymphocytes Percent Auto 18.7 % (18.3-44.2); Mean Corpuscular HGB Conc 33.1 g/dl (32-36); Mean Corpuscular Hemoglobin 29.9 pg (26-34); Mean Corpuscular Volume 90.3 fl (80-100); Mean Platelet Volume 10.2 fl (7.4-10.4); Monocytes Absolute Auto 0.7 K/mm3 (0.1-0.6); Monocytes Percent Auto 8.1 % (2.6-8.5); Neutrophils Absolute Auto 6.1 K/mm3 (1.3-6.7); Neutrophils Percent Auto 69.5 % (45.5-73.1); Platelet Count Result 177 k/mm3 (150-375); Red Blood Count 2.68 M/mm3 (4.6-6.20); Red Cell Distribution Width 15.3 % (11.5-14.5); White Blood Count 8.8 K/mm3 (4.5-10.0)
[2020-06-24 06:50] LABS: Anion Gap 4 mmol/L (8-16); Blood Urea Nitrogen 15 mg/dL (9-20); Calcium 7.4 mg/dL (8.4-10.2); Carbon Dioxide 27 mmol/L (22-30); Chloride 107 mmol/L (98-107); Estimated CRCL calculation 71 ml/min; Estimated Glomerular Filt Rate > 60; Glucose 124 mg/dL (75-110); Potassium 3.7 mmol/L (3.4-5.0); Sodium 138 mmol/L (137-145)
[2020-06-24 07:43] VITALS: BP 125/57
--- NOTE | 2020-06-24 07:48 | WPDANESPN ---
Anes - Prog Note Post-Op Date/Time: 06/24/20 07:48 Cardiovascular status: normal Respiratory status: normal Airway patency: baseline Mental status: baseline Post-Op hydration status: normal Vital Signs: Last Vital Signs Temp 36.4 C L 06/24/20 04:32 Pulse 84 06/24/20 04:32 Resp 18 06/24/20 04:32 BP 125/57 L 06/24/20 07:43 Pulse Ox 98 06/24/20 04:32 Pain Score (VAS): 0 I/O: Intake & Output 06/23/20 06/23/20 06/24/20 15:59 23:59 07:59 Intake Total 500 540 Balance 500 540 Laboratory Tests 06/24/20 05:54 06/24/20 05:54 06/23/20 06/23/20 06/23/20 07:45 10:01 12:24 WBC RBC Hgb Hct MCV MCH MCHC RDW Plt Count MPV Immature Gran % (Auto) Neut % (Auto) Lymph % (Auto) [place] % (Auto) Eos % (Auto) Baso % (Auto) Lymph # (Auto) [place] # (Auto) Eos # (Auto) Baso # (Auto) Abs Immat Gran (auto) Absolute Neuts (auto) Absolute Nucleated RBC Nucleated RBC % Sodium Potassium Chloride Carbon Dioxide Anion Gap BUN Creatinine Estim Creat Clear Calc Estimated GFR Glucose POC Capillary Glucose 125 H 135 H 153 H Calcium 06/23/20 06/23/20 06/24/20 16:29 19:52 05:54 WBC 8.8 RBC 2.68 L Hgb 8.0 L Hct 24.2 L MCV 90.3 MCH 29.9 MCHC 33.1 RDW 15.3 H Plt Count 177 MPV 10.2 Immature Gran % (Auto) 0.6 H Neut % (Auto) 69.5 Lymph % (Auto) 18.7 [place] % (Auto) 8.1 Eos % (Auto) 2.8 Baso % (Auto) 0.3 Lymph # (Auto) 1.64 [place] # (Auto) 0.7 H Eos # (Auto) 0.3 Baso # (Auto) 0.0 Abs Immat Gran (auto) 0.05 H Absolute Neuts (auto) 6.1 Absolute Nucleated RBC 0.0 Nucleated RBC % 0.0 Sodium Potassium Chloride Carbon Dioxide Anion Gap BUN Creatinine Estim Creat Clear Calc Estimated GFR Glucose POC Capillary Glucose 106 169 H Calcium 06/24/20 05:54 WBC RBC Hgb Hct MCV MCH MCHC RDW Plt Count MPV Immature Gran % (Auto) Neut % (Auto) Lymph % (Auto) [place] % (Auto) Eos % (Auto) Baso % (Auto) Lymph # (Auto) [place] # (Auto) Eos # (Auto) Baso # (Auto) Abs Immat Gran (auto) Absolute Neuts (auto) Absolute Nucleated RBC Nucleated RBC % Sodium 138 Potassium 3.7 Chloride 107 Carbon Dioxide 27 Anion Gap 4 L BUN 15 D Creatinine 0.70 Estim Creat Clear Calc 71 Estimated GFR > 60 Glucose 124 H POC Capillary Glucose Calcium 7.4 L Post-procedural complaints: none Patient Feedback: Patient satisfied with anesthetic care.
[2020-06-24 07:56] LABS: Glucose Point of Care 137 (65-105)
[2020-06-24] MEDS: EZETIMIBE 10 MG TABLET PO (08:31)
[2020-06-24] MEDS: TAMSULOSIN HCL 0.4 MG CAPSULE PO (08:31)
[2020-06-24] MEDS: ATORVASTATIN 40 MG TABLET 80 MG PO (08:31)
[2020-06-24 08:32] VITALS: PULSE 67
[2020-06-24] MEDS: metFORMIN HCL XR 500 MG TAB.SR.24H PO (08:32)
[2020-06-24] MEDS: METOPROLOL TARTRATE 25 MG TABLET PO (08:32)
[2020-06-24] MEDS: FOLIC ACID 1 MG/0.2 ML INJ IV PUSH (08:33)
[2020-06-24] MEDS: IRBESARTAN 150 MG TABLET PO (10:06)
--- NOTE | 2020-06-24 11:45 | PM.DS ---
DS: Admitting Diagnosis Admitting Diagnosis Admitting Diagnosis: GI bleed DS: Discharge Diagnosis Discharge Diagnosis (1) Gastrointestinal bleeding: Qualifiers: GI bleed type/associated pathology: melena Qualified Code(s): K92.1 - Melena Code(s): K92.2 - Gastrointestinal hemorrhage, unspecified Status: Acute Assessment and Plan: PPI therapy sp blood tranfusion Sp EGD showing gastrits, esophagitis and hiatial hernia and DU stricture hold plavix (2) Pneumonia: Qualifiers: Laterality: unspecified laterality Lung location: unspecified part of lung Pneumonia type: due to unspecified organism Qualified Code(s): J18.9 - Pneumonia, unspecified organism Code(s): J18.9 - Pneumonia, unspecified organism Status: Acute Assessment and Plan: continue azithromycin and ceftriaxone IV in hospital, ABX can be stopped on discharge WCC is NL COVID is negative DC tomorrow (3) Atrial fibrillation with rapid ventricular response: Code(s): I48.91 - Unspecified atrial fibrillation Status: Acute Assessment and Plan: resolved with fluids and transfusion no anticoagulation or anti-platelet agents due to gastrointestinal bleeding (4) Sepsis: Qualifiers: Sepsis acute organ dysfunction status: unspecified Sepsis type: sepsis due to unspecified organism Qualified Code(s): A41.9 - Sepsis, unspecified organism Code(s): A41.9 - Sepsis, unspecified organism Status: Acute Assessment and Plan: resolved (5) Anemia: Qualifiers: Anemia type: unspecified type Qualified Code(s): D64.9 - Anemia, unspecified Code(s): D64.9 - Anemia, unspecified Status: Acute Assessment and Plan: acute GI blood loss sp 3 units packed cells Hb stable at 8 on discharge (6) Benign prostatic hyperplasia with urinary frequency: Code(s): N40.1 - Benign prostatic hyperplasia with lower urinary tract symptoms; R35.0 - Frequency of micturition Status: Acute (7) Diabetes mellitus: Qualifiers: Diabetes mellitus type: type 2 Diabetes mellitus intermediate card tender insulin use: without retirement use Diabetes mellitus complication status: without complication Qualified Code(s): E11.9 - Type 2 diabetes mellitus without complications Code(s): E11.9 - Type 2 diabetes mellitus without complications Status: Acute (8) Lactic acidosis: Code(s): E87.2 - Acidosis Status: Acute Assessment and Plan: resolved (9) Depression: Qualifiers: Depression Type: major depressive disorder Major depression recurrence: single episode Active/Remission status: currently active Major depression episode severity: moderate Qualified Code(s): F32.1 - Major depressive disorder, single episode, moderate Code(s): F32.9 - Major depressive disorder, single episode, unspecified Status: Inactive DS: Summary Hospital Course Hospital Course: Admitted June 20 with gastrointestinal bleeding. Weakness. Sp EGD for FOBT is positive. found to have hiatal hernia, gastritis and esophagitis on EGD. PT also had DU stricture. HB stable today Pt able to tolerate diet, stable or discharge. Time Spent with Patient Time attestation: Total time spent providing and/or coordinating discharge services:40 minutes on day of dischrage Exam Const: General: cooperative and healthy appearing; No in distress Nutritional Appearance: overweight Orientation/consciousness: oriented to person Resp: Effort & Inspection: no respiratory distress Auscultation: no rhonchi and no wheezes Cardio: Rate: regular rate Rhythm: regular rhythm GI: Inspection: normal to inspection Auscultation: normal bowel sounds Neuro: General: oriented to person DS: Data Data Completed and Pending Pending studies at discharge: Pending at discharge 06/23/20 11:42 Surgical [PTH] Routine Labs on d
--- NOTE | 2020-06-24 13:35 | WPDGIPROGNO ---
Progress Note: A&P Assessment and Plan (1) Gastrointestinal bleeding: Qualifiers: GI bleed type/associated pathology: melena Qualified Code(s): K92.1 - Melena Code(s): K92.2 - Gastrointestinal hemorrhage, unspecified Status: Acute Assessment and Plan: stable hb, no more bleeding findings EGD yesterday can explain presentation patient can go home with PPI twice daily, hold plavix for 5 days and will do EGD in about 6 weeks (he can also have colonoscopy same day- if will think about it) (2) Acute blood loss anemia: Code(s): D62 - Acute posthemorrhagic anemia Status: Acute Assessment and Plan: hb stable since yesterday, no more bleeding (3) Stricture intestinal: Code(s): K56.699 - Other intestinal obstruction unspecified as to partial versus complete obstruction Status: Acute Assessment and Plan: 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, dilated yesterday egd in 6 weeks again (4) Erosive esophagitis: Code(s): K22.10 - Ulcer of esophagus without bleeding Status: Acute (5) Hiatal hernia: Code(s): K44.9 - Diaphragmatic hernia without obstruction or gangrene Status: Inactive Subjective Date/time seen: 06/24/20 11:30 Interval history: no more bleeding, doing well and he is going home today Review of Systems Review of Systems: All systems reviewed & are unremarkable except as noted in HPI and below Exam Const: General: comfortable and no acute distress HENMT: General nose exam: Normal nares present Eyes: General: appearance normal, both eyes and all related structures Neck: Neck: no JVD Resp: Auscultation: clear to auscultation bilaterally Cardio: Rate: regular rate Rhythm: regular rhythm GI: Inspection: non-distended GI Palp: Yes Soft to palpation Skin: General skin exam: normal color Neuro: General: gait normal Speech: normal speech Extrem: General: normal to inspection Psych: Mental Status: mental status grossly normal Objective Data Vital Signs Vital Signs: Vital Signs - 24 hr 06/23/20 14:00 06/23/20 17:18 06/23/20 19:41 Temperature 97.5 F L 97.7 F Pulse Rate 74 80 90 Respiratory Rate 20 20 Blood Pressure 113/51 L 106/40 L Pulse Oximetry 99 99 06/23/20 20:01 06/24/20 04:32 06/24/20 07:43 Temperature 97.5 F L Pulse Rate 79 84 Respiratory Rate 18 Blood Pressure 100/49 L 125/57 L Pulse Oximetry 98 06/24/20 08:32 Temperature Pulse Rate 67 Respiratory Rate Blood Pressure Pulse Oximetry Intake/Output Intake/Output: Intake & Output 06/21/20 06/22/20 06/23/20 06/24/20 23:59 23:59 23:59 23:59 Intake Total 3670 4000 1440 240 Output Total 1775 1600 800 Balance 1895 2400 640 240 Meds/Results Radiology Results: ITS Impressions Chest X-Ray 06/20/20 17:08 IMPRESSION: 1. No acute cardiopulmonary disease. Chest/Abdomen/Pelvis CTA 06/20/20 18:25 IMPRESSION: 1. No pulmonary embolus. 2. Mild pneumonia in right lower lobe. 3. Small sliding hiatal hernia. Labs Labs: Laboratory Results - last 24 hr 06/23/20 06/23/20 06/24/20 16:29 19:52 05:54 WBC 8.8 RBC 2.68 L Hgb 8.0 L Hct 24.2 L MCV 90.3 MCH 29.9 MCHC 33.1 RDW 15.3 H Plt Count 177 MPV 10.2 Immature Gran % (Auto) 0.6 H Neut % (Auto) 69.5 Lymph % (Auto) 18.7 [place] % (Auto) 8.1 Eos % (Auto) 2.8 Baso % (Auto) 0.3 Lymph # (Auto) 1.64 [place] # (Auto) 0.7 H Eos # (Auto) 0.3 Baso # (Auto) 0.0 Abs Immat Gran (auto) 0.05 H Absolute Neuts (auto) 6.1 Absolute Nucleated RBC 0.0 Nucleated RBC % 0.0 Sodium Potassium Chloride Carbon Dioxide Anion Gap BUN Creatinine Estim Creat Clear Calc Estimated GFR Glucose POC Capillary Glucose 106 169 H Calcium 06/24/20 06/24/20 05:54 07:50 WBC RBC Hgb Hct MCV MCH MCHC RDW Plt Count MPV Immature Gran % (Auto) Ne
--- OUTSIDE RECORDS SUMMARY | 2020-06-29 13:18 | XMS_ITS ---
:1939 Author Care Team Providers Name Role Phone HAILEY VANG MD Primary Care Provider [phone] Allergies Code Code System Name Reaction Severity Status Onset 327508 RxNorm Uroxatral ? ? Active ? Medications Name Status Start Date Stop Date ? ? albuterol sulfate HFA 90 mcg/actuation Active ? Not available aerosol inhaler amoxicillin 500 mg capsule Completed ? 01/28 aspirin 81 mg tablet,delayed release Active ? Not available TAKE ONE TABLET DAILY atenolol 50 mg tablet Completed ? 05/27/2020 atorvastatin 40 mg tablet Completed ? 2018 atorvastatin 80 mg tablet Active ? Not av ailable azithromycin 250 mg tablet Completed ? 05/27 TAKE 2 TABLETS BY MOUTH TODAY, THEN TAKE 1 TABLET DAILY FOR 4 D AYS benzonatate 200 mg capsule Completed ? 05/27 cefdinir 300 mg capsule Completed ? 03/29/20 ciprofloxacin 500 mg tablet Completed ? 03/12 clopidogrel 75 mg tablet Active ? Not anthony ilable codeine 10 mg-guaifenesin 100 mg/5 mL Completed ? 05/27/2020 oral liquid escitalopram 20 mg tablet Completed ? 2019 TAKE 1 TABLET BY MOUTH EVERY DAY IN THE EVENING ezetimibe 10 mg tablet Active ? Not avail able fluorouracil 5 % topical cream Completed ? 0 07/30/2019 Fluzone High-Dose 6115-4832 (PF) 180 mcg/0.5 mL intramuscular sy ringe Active ? Not available ADM 0.5ML IM UTD Fluzone High-Dose Quad (PF) 240 mcg/0.7 mL IM syringe Co mpleted ? 05/27/2020 PHARMACY ADMINISTERED irbesartan 150 mg tablet Activ
--- OUTSIDE RECORDS SUMMARY | 2020-06-29 13:18 | XMS_ITS | Encounter Summary ---
:1939 Author Care Team Providers Name Role Phone Dillon Mejia MD Primary Care Provider [phone] Reason for Visit Other Assessment and Plan 1. Diabetes mellitus new onset, educated about diet , accu check info and demo, start meds ? metformin ER 500 mg tablet ,extended release 24 hr ? OneTouch Verio test strips ? OneTouch Verio lancets 2. Melena gibson snot want EGD, start meds, check labs and watch ? CBC w/ auto diff ? omeprazole 40 mg capsule,d elayed release Discussion Note: None recorded.Patient educational handouts: No information available. Plan of Care Reminders Provider Appointments Hospital F/U Ra viviana Mejia, 07/03/2020 2:40PM ? Routine Dillon Mejia, Follow-Up 09/25/2020 1:10PM Lab CBC W/ Auto [facility] 06/19/2020 Hospital (Lab) Referral None ? ? recorded. Procedures None ? ? recorded. Surgeries None ? ? recorded. Imaging None ? ? recorded. Medications Name Start Date ? ? albuterol sulfa
--- OUTSIDE RECORDS SUMMARY | 2020-06-29 13:18 | XMS_ITS | Encounter Summary ---
:1939 Author Care Team Providers Name Role Phone Dillon Mejia MD Primary Care Provider [phone] Reason for Visit Routine follow up Assessment and Plan 1. Essential hypertension stop Lisinopril 2. Hyperlipidemia on high dose ? lipid panel, serum 3. Dysphagia s/p dilatation, no current sym ptoms 4. Benign prostatic hyperplasia seeing urology 5. Heart murmur had echo in the past 6. Low back pain DJD 7. Coronary arteriosclerosis s/p stents x 2 RCA 8. Ex-smoker quit in 1999 9. Hyperglycemia watching ? HbA1c (hemoglobin A1c), bl ood ? CMP, serum or plasma 10. Carotid artery stenosis s/p right carotid stent, recov ering, monitoring BP 11. Depressive disorder no meds needed 12. Adult health examination had colonoscopy, no record had pneumovax, no record PSA- 02/06/18 13. Screening for malignant neop lasm of prostate ? PSA, total, serum or plasm a Discussion Note: None recorded.Patient educational handouts: No information available. Plan of Care Reminders Provider Jazmin
--- OUTSIDE RECORDS SUMMARY | 2020-06-29 13:18 | XMS_ITS ---
:1940 Author Care Team Providers Name Role Phone HAILEY VANG MD Primary Care Provider [phone] Allergies Code Code System Name Reaction Severity Status Onset 165903 RxNorm Uroxatral ? ? Active ? Medications Name Status Start Date Stop Date ? ? albuterol sulfate HFA 90 mcg/actuation aerosol inhaler Active ? Not available INHALE 2 PUFFS 4 TIMES A DAY BY INHALATION ROUTE FOR 10 DAYS. amoxicillin 500 mg capsule Completed ? 02/24 aspirin 81 mg tablet,delayed release Active ? Not available atenolol 50 mg tablet Completed ? 03/17/2020 atorvastatin 80 mg tablet Active ? Not av ailable Avapro 150 mg tablet Active ? Not availab le Take 1 tablet every day by oral route. azithromycin 1 gram oral packet Unknown ? Not available Take 250 mg every day by oral route for 4 days. azithromycin 250 mg tablet Completed ? 03/17 TAKE 2 TABLETS BY MOUTH TODAY, THEN TAKE 1 TABLET DAILY FOR 4 D AYS azithromycin 500 mg tablet Completed ? 03/17 TAKE 1 TABLET BY MOUTH ONCE FOR 1 DOSE benzonatate 200 mg capsule Completed ? 02/24 ciprofloxacin 500 mg tablet Completed ? 02/10 clopidogrel 75 mg tablet Active ? Not anthony ilable codeine 10 mg-guaifenesin 100 mg/5 mL Active ? Not available oral liquid escitalopram 20 mg tablet Completed ? 2019 ezetimibe 10 mg tablet Active ? Not avail able Fluzone High-Dose Quad 2019- (PF) 240 mcg/0.7 mL IM syringe Ac tive ? Not available PHARMACY ADMINISTERED hydrocodone 10 mg-acetaminophen 325 mg Completed
--- OUTSIDE RECORDS SUMMARY | 2020-06-29 13:36 | XMS_ITS | Encounter Summary ---
:1940 Author Care Team Providers Name Role Phone Dillon Mejia MD Primary Care Provider [phone] Reason for Visit Other Assessment and Plan [...]
--- OUTSIDE RECORDS SUMMARY | 2020-06-29 13:36 | XMS_ITS | Encounter Summary ---
:1940 Author Care Team Providers Name Role Phone Dillon Mejia MD Primary Care Provider [phone] Reason for Visit Routine follow up Assessment [...]
--- OUTSIDE RECORDS SUMMARY | 2020-06-29 13:36 | XMS_ITS ---
:1940 Author Care Team Providers Name Role Phone HAILEY VANG MD Primary Care Provider [phone] Allergies Code Code System Name Reaction Severity Status Onset 600067 RxNorm Uroxatral ? ? Active ? Medications [...]
--- OUTSIDE RECORDS SUMMARY | 2020-06-29 13:36 | XMS_ITS ---
:1940 Author Care Team Providers Name Role Phone HAILEY VANG MD Primary Care Provider [phone] Allergies Code Code System Name Reaction Severity Status Onset 090567 RxNorm Uroxatral ? ? Active ? Medications [...] cream Completed ? 0 07/30/2019 Fluzone High-Dose 2756-0101 (PF) 180 mcg/0.5 mL intramuscular sy ringe Active ? Not available ADM 0.5ML IM UTD Fluzone High-Dose Quad (PF) 240 mcg/0.7 mL IM syringe Co mpleted ? 05/27/2020 PHARMACY ADMINISTERED irbesartan 150 mg tablet Activ
== END 2020-06-24 12:20 | disposition home or self-care (01) | DRG 871 ==
LOC: ANHED 19:51 → ANHIMU 06-21 00:22 → ANH3MED 06-24 01:50 → ANHIMU 06-29 13:34
PROVIDERS: Internal Medicine; Internal Medicine Gastroenterology; Admitting Provider Internal Medicine; Emergency Provider Emergency Medicine; PCP Internal Medicine; Visit Provider Family Medicine
PROC: 0DJ08ZZ Inspection of Upper Intestinal Tract, Via Natural or Artificial Opening Endoscopic (ICD-10-PCS; CPT 43235; principal; 2020-06-23 11:00)
DX: A41.9 Sepsis, unspecified organism (principal); J18.9 Pneumonia, unspecified organism; K29.71 Gastritis, unspecified, with bleeding; E87.2 Acidosis; F32.1 Major depressive disorder, single episode, moderate; D62 Acute posthemorrhagic anemia; K31.5 Obstruction of duodenum; K22.10 Ulcer of esophagus without bleeding; Z20.822 Contact with and (suspected) exposure to COVID-19; K21.00 Gastro-esophageal reflux disease with esophagitis, without bleeding; K44.9 Diaphragmatic hernia without obstruction or gangrene; E11.9 Type 2 diabetes mellitus without complications; I48.91 Unspecified atrial fibrillation; I35.0 Nonrheumatic aortic (valve) stenosis; E78.5 Hyperlipidemia, unspecified; N40.1 Benign prostatic hyperplasia with lower urinary tract symptoms; R35.0 Frequency of micturition; Z79.82 Long term (current) use of aspirin; Z79.899 Other long term (current) drug therapy; Z87.891 Personal history of nicotine dependence; Z98.49 Cataract extraction status, unspecified eye
CPT/HCPCS: 36415; 36430; 36600; 71046; 71275; 74177; 80048; 82274; 82375; 82607; 82728; 82746; 82805; 82948; 83050; 83540; 83550; 83605; 83615; 83880; 84443; 84466; 84484; 85014; 85018; 85025; 85027; 85046; 85380; 85610; 85730; 86850; 86900; 86901; 86923; 87040; 87081; 88305; 93005; 96365; 96367; 99285; A9270; C1726; C9113; C9803; J0456; J0696; J2001; J2704; J3420; J7120; P9016; Q9967; U0003

== ENCOUNTER 2021-08-16 07:54 | Outpatient (CLI) | payer MEDICARE, SELFPAY ==
--- NOTE | 2021-08-16 08:00 | ECG_ITS ---
Measurements Intervals [place] Rate: 94 P: 96 TN: 234 QRS: 52 QRSD: 97 T: 59 QT: 342 QTc: 428 Interpretive Statements SINUS RHYTHM WITH FIRST DEGREE AV BLOCK BASELINE ARTIFACT BORDERLINE ECG COMPARED TO ECG 06/20/2020 16:22:27 SINUS RHYTHM NOW PRESENT FIRST DEGREE AV BLOCK NOW PRESENT Electronically Signed On 08-16-2021 14:10:02 [employer] IN[employer]LE by Benito Duong M.D.
[2021-08-16 08:41] LABS: Anion Gap 5 mmol/L (8-16); Blood Urea Nitrogen 13 mg/dL (9-20); Calcium 8.6 mg/dL (8.4-10.2); Carbon Dioxide 29 mmol/L (22-30); Chloride 105 mmol/L (98-107); Estimated Glomerular Filt Rate > 60; Glucose 179 mg/dL (65-110); Sodium 139 mmol/L (137-145)
== END 2021-08-16 07:55 | disposition home or self-care (01) ==
LOC: ANHSURGERY 07:58
PROVIDERS: Anesthesiology; PCP Internal Medicine; Visit Provider Plastic Surgery
DX: E11.9 Type 2 diabetes mellitus without complications (principal); I10 Essential (primary) hypertension; Z01.818 Encounter for other preprocedural examination; I44.0 Atrioventricular block, first degree
CPT/HCPCS: 36415; 80048; 93005

== ENCOUNTER 2021-08-19 00:44 | Day surgery (SDC) | payer MEDICARE, SELFPAY ==
--- NOTE | 2021-08-12 12:16 | PC.NURSE ---
Report to the Outpatient Waiting Room, entrance under the green pavilion located off [facility], at time __0600 on date _08/19/21 . OR Time: __829 . NUCLEAR MED AT 0700 - You and your visitor will be asked a series of questions to screen for COVID 19 for your protection. - A mask is required within the hospital. Preoperative COVID Testing Requirements: No COVID Test needed if: (proof is required; if not received patient will have Rapid Test prior to entry) - Patient has received COVID Vaccine at least 14 days prior to procedure date or - Patient has positive COVID test result within last 90 days of surgery date. COVID Test needed if above criteria is not met If not COVID vaccinated a COVID test must be conducted within 72 hours of surgery and patient is asked to isolate self from time of testing until procedure. You will go to the [facility] for your COVID testing. The [facility] is located at the corner of [address] [facility]. You will only be called if COVID results are positive and your surgeon may reschedule your elective surgery date. Patients may have clear liquids (water, carbonated beverages, clear teas, apple juice) until 3 hours prior to surgery with a maximum of 20 ounces. - No food from midnight until time of surgery - Infants may have breast milk until 4 hours before surgery, infant formula 6 hours prior to surgery. - Children will be allowed to drink immediately following surgery. If applicable, please bring a bottle or sippy cup to assist with drinking. Juice, water, soda, and popsicles are readily available. For infants on formula, please bring formula the day of surgery. Pacifiers are allowed. Take the following medications with a SIP of water the morning of surgery: __NONE Medications to discontinue per physician SON STATES HOLD__PLAVIX [address] ZUNIGA____OK TO CONTINUE ASPIRIN PER DR ZUNIGA Date to take last dose___08/13/21 Please no make-up, nail zimbabwean, hairspray, perfume, deodorant, or body powder the day of surgery. No jewelry (including any body piercings) or valuables the day of surgery, leave them at home. Please take a shower or bath the night before, or the morning of, surgery with an antibacterial soap. Wear comfortable, loose fitting clothing. Children are encouraged to wear pajamas. - Jewelry must be removed prior to entering the operating room. Rings and piercings that are not removed may be cut off. - The hospital will not accept responsibility for valuables. - Please leave all valuables, including medications, at home the day of surgery. If you are going home after surgery, a licensed driver supervisor must drive you home. - NO public transportation without another adult. - We recommend that an adult stay with you for 24 hours following discharge. - We also recommend that you do not drive, make important decision, drink alcoholic beverages, or take any drugs that were not prescribed by your health care provider for at least 24 hours after your discharge time. For Pediatric surgeries, we recommend two adults accompany the child home (only one inside the building at this time). One visitor will be allowed to accompany the patient into the hospital. Patients visitor will be instructed to remain with patient at all times or leave the building. We will allow the visitor to come back to the postoperative area when patient is ready. Follow any additional instructions given to you from your surgeon. Telephone instructions given to __PT'S SON ROB and asked if any additional questions and then verbalized understanding. Patient advised to call surgeon office or pre surgery nurse liaison [phone] if any additional questions.
[2021-08-12 13:08] VITALS: BMI 27.3
--- NOTE | 2021-08-18 13:52 | WPDANESEPPF ---
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 Patient Data Age: 81 Gender: M Height: 1.75 m Weight: 83.91 kg Allergies Allergy/AdvReac Type Severity Reaction Status Date / Time No Known Allergies Allergy Unknown Unknown Verified 08/19/21 06:27 Home Medications Medication Instructions Recorded Confirmed Type aspirin 81 mg tablet,delayed 81 mg PO DAILY 03/04/20 08/19/21 History release atorvastatin 80 mg tablet 80 mg PO DAILY 03/04/20 08/19/21 History clopidogrel 75 mg tablet 75 mg PO DAILY 03/04/20 08/19/21 History ezetimibe 10 mg tablet 10 mg PO DAILY 03/04/20 08/19/21 History tamsulosin 0.4 mg capsule 0.4 mg PO DAILY 03/04/20 08/19/21 History metformin 500 mg PO BID 06/20/20 08/19/21 History escitalopram oxalate 20 mg PO HS 08/12/21 08/19/21 History Patient hx anesthesia problems: none Family hx anesthesia problems: none Results Review: All pre-operative results and documents have been reviewed as part of the pre-operative evaluation. [facility] Past Medical History Medical History (Updated 08/18/21 @ 13:53 by Philip Fontana DO) Acute blood loss anemia Aortic stenosis BPH (benign prostatic hyperplasia) Carotid stenosis Depression Diabetes mellitus Hemoglobin A1c of 8.5 Erosive esophagitis Essential hypertension Hearing loss Hiatal hernia History of heart attack Hyperlipidemia Stricture intestinal Surgical History Surgical History (Updated 08/18/21 @ 13:53 by Philip Fontana DO) History of bilateral cataract extraction Approximately 2009 History of coronary artery stent placement , 1994 History of laparoscopic cholecystectomy History of right common carotid artery stent placement History of total left knee replacement Status post dilatation of esophageal stricture Family History Family History Mother Cerebrovascular accident Social History Social History (Updated 06/21/20 @ 08:12 by Sandie Burks DO) Social History: The patient and his have been for the last 55 years. They have 3 adult sons who are in good health. He is a former smoker quit smoking about 25 years ago. He used to drink heavily in his youth but has not drank heavily in the last several years. He drinks about 6 beers a year at this time. He denies any illicit substance use. He served in [employer] for 3 years and then retired from [employer]. Primary care physician: Dr. Mejia Smoking packs per day: 2 Smoking cigarettes per day: 40.0 Years smoked: 25 Smoking pack-years: 50.00 Smoking status: Former smoker Tobacco type: cigarettes Smoking end date: 06/12/94 Alcohol intake: former Substance use: never Living arrangements: alone Spiritual care concerns: No Anes - Eval Final PreProcedure Day of Procedure 08/18/21 13:52 Patient weight: overweight Heart: regular rate and rhythm Lungs: clear to auscultation and normal air movement Airway: Mallampati scale class II Neurological: alert and oriented Last oral intake: >/= 8 hours ASA classification: IV Emergent: no Anesthetic plan: proceed Anesthesia type and monitoring: general LMA and standard monitoring Results Review: All pre-operative results and documents have been reviewed as part of the pre-operative evaluation. Informed Consent: The patient's anesthetic plan and its attendant risks and benefits were discussed with the patient/family/POA. Questions were solicited and answers provided to the satisfaction of the patient/family/POA.
[2021-08-19] VITALS (8 sets, daily range): BP systolic 91–134; BP diastolic 43–69; PULSE 65–96; RESP 12–20; TEMP 36–36.1; O2SAT 96–100
--- NOTE | ~2021-08-19 | NM_ITS ---
EXAMINATION: NM sentinel node w imaging DATE: 08/19/2021 08:19 INDICATION: Right dorsal hand Alexy cell carcinoma. TECHNIQUE: 0.381 mCi Tc-99m filtered sulfur colloid was injected in three aliquots in the dorsal righ t hand. Scintigrams were obtained. FINDINGS: There is a sentinel node in the right axilla. IMPRESSION: 1. [place] node localization in the right axilla. Reviewed, dictated and finalized at location A. 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
[2021-08-19] MEDS: LACTATED RINGERS 1,000 ML 30 ML IV CONT ×2 (06:39→11:54)
[2021-08-19 06:44] LABS: Glucose Point of Care 173 mg/dl (65-105)
--- NOTE | 2021-08-19 07:13 | WPDHPUPDATE1 ---
History and Physical Update Update Date/Time: 08/19/21 07:13 History and Physical has been reviewed, including an updated exam of the patient. There are NO changes in the patient's condition. Risks, benefits, and alternatives have been discussed and questions answered. Patient agrees to proceed with procedure.
--- NOTE | 2021-08-19 07:17 | SUR.PREOP ---
pt taken to nuclear medicine for injection at 0705.
--- NOTE | 2021-08-19 08:15 | SUR.PREOP ---
returned to pre op room past nuclear medicine injection.
--- NOTE | 2021-08-19 10:52 | SUR.OPER ---
pathology specimen sent with STEPHANIE Gómez, accepted by [facility]
[2021-08-19 12:14] LABS: Glucose Point of Care 214 mg/dl (65-105)
[2021-08-19] MEDS: INSULIN HUMAN REGULAR (*BKC) 100 UNITS/ML IV PUSH (12:20)
--- NOTE | 2021-08-19 14:29 | P.OP_ITS ---
Procedure Note - Detailed Date of Procedure 08/19/21 Pre-op Diagnosis trino cell CA right dorsal hand Post-op Diagnosis Same Procedure Performed 6 x 5 cm wide excision of [place] cell carcinoma of the right dorsal hand. Full-thickness skin graft 20 sq cm from the right thigh to right hand. Right axillary sentinel lymph node biopsy. Surgeon Yoan Zaragoza MD Research Associate Policy [employer]oke mayo Anesthesia General Indications Recent excision of [place] cell carcinoma from the right dorsal hand with minimal margin and lymphovascular involvement Description of Procedure The right dorsal hand the right axilla and the right thigh were marked on the patient as he waited in the holding area. He had already been to nuclear Medicine and had had a right axillary lymph node identified. He was taken to the operating room placed supine on the operating table. The entire right upper extremity and the right thigh were prepped and draped in usual fashion. He was given general anesthesia. The right axillary lymph node biopsy was performed 1st. This was done with a curving incision just behind the anterior margin of axilla behind the pectoralis. Dissection was carried down into the axillary fat pad and with the probe we were able to identify a single lymph node. This was roughly a cm diameter not of standing and otherwise except that was firm. This was removed with digital and cautery dissection. Was minimal bleeding. Believe that I preserved the intercostal brachial nerve. The wound was closed with superficial fascia 4-0 Monocryl suture and intradermal 4-0 Monocryl suture glue the skin surface. Attention was then turned to the right hand the existing scar was identified and marked. 2 cm were marked around this area. The full-thickness specimen was taken off the peritenon specimen was sent for permanent section. There was very little bleeding. The measurements were transferred to the right thigh were appropriate marking was made for harvesting of the full-thickness graft. This area was widely infiltrated with 1% lidocaine with epinephrine. The incision was made just through the skin and the skin was elevated on the 10 blade being to spare all the deeper dermis and subcutaneous tissue. The graft was placed in a moist gauze on the back table. The donor site was closed by incising the full-thickness of the remaining dermis and undermining the margins on all sides. This allowed coaptation nicely with intradermal 2-0 Vicryl suture. The closure was done such that was standing cones were removed both ends and glue was applied. The The graft was defatted to satisfactory level and placed on the wound. Some cornell were tacked around the outside glue was applied then and the cornell removed. The grafted area is dressed with a Mepilex Silver gauze and 3 in Diomedes wrap. The donor site was dressed with gauze and Xeroform and Tegaderm. The axilla was dressed simply with glue for patient tolerated this well and was discharged from the operating room in a stable condition. Estimated Blood Loss 20 Tourniquet Time 0 Drains No Packing No Pathology Yes Complications No immediate complications Condition Stable Disposition PACU
== END 2021-08-19 14:26 | disposition home or self-care (01) ==
PROVIDERS: PCP Internal Medicine; Visit Provider Plastic Surgery
PROC: (CPT 15240; principal; 2021-08-19 10:00)
DX: C4A.61 Merkel cell carcinoma of right upper limb, including shoulder (principal); L90.5 Scar conditions and fibrosis of skin; Z79.82 Long term (current) use of aspirin; Z79.84 Long term (current) use of oral hypoglycemic drugs; I35.0 Nonrheumatic aortic (valve) stenosis; N40.0 Benign prostatic hyperplasia without lower urinary tract symptoms; I65.29 Occlusion and stenosis of unspecified carotid artery; F32.9 Major depressive disorder, single episode, unspecified; I10 Essential (primary) hypertension; E78.5 Hyperlipidemia, unspecified; K44.9 Diaphragmatic hernia without obstruction or gangrene; I25.10 Atherosclerotic heart disease of native coronary artery without angina pectoris; Z90.49 Acquired absence of other specified parts of digestive tract; Z87.891 Personal history of nicotine dependence
CPT/HCPCS: 15240; 38525; 11626; 78195; 82948; 88304; 88307; 88342; A9520; J1100; J1815; J2370; J2405; J2704; J3010; J7120

== ENCOUNTER 2021-10-08 13:08 | Outpatient (CLI) | payer MEDICARE, SELFPAY ==
--- NOTE | ~2021-10-08 | CT_ITS ---
EXAMINATION: CT diagnostic chest wo con DATE: 10/08/2021 13:25 INDICATION: [place] cell cancer TECHNIQUE: Computed tomography (CT) of the chest was performed without intravenous contrast. The dose -length product (DLP) was 216.64 mGy-cm. 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 COMPARISON: 06/20/2020 FINDINGS: The lungs are free of acute opacities. There is an unchanged 8 mm groundglass nodule of the right upper lobe. There is mild atelectasis. Calcified pulmonary nodules and calcified bilateral hil ar and mediastinal lymph nodes are consistent with old granulomatous disease. No pathologically enlar ged thoracic lymph nodes are identified. The heart size is normal. There are surgical changes in the region of the right axilla. There is moderate thoracic spondylosis. The gallbladder is surgically abs ent. There is a 3 mm nonobstructing stone of the left kidney. IMPRESSION: 1. No evidence of metastatic disease. 2. Changes in the right axilla likely related to lymph node dissection. Reviewed, dictated and finalized at location B.
== END 2021-10-08 13:09 | disposition home or self-care (01) ==
PROVIDERS: PCP Internal Medicine; Visit Provider Internal Medicine Hematology & Oncology
DX: C4A.9 Merkel cell carcinoma, unspecified (principal)
CPT/HCPCS: 71250

== ENCOUNTER 2021-10-16 12:26 | Emergency (ER) | payer MEDICARE, SELFPAY ==
[2021-10-16] VITALS (7 sets, daily range): BP systolic 137–163; BP diastolic 60–75; PULSE 75–85; RESP 19–26; O2SAT 95–98
--- NOTE | ~2021-10-16 | CT_ITS ---
EXAMINATION: CT brain wo con INDICATION: Transient alteration of awareness COMPARISON: None TECHNIQUE: Standard unenhanced head CT. The dose-length product (DLP) was 681.00 mGy-cm. The mA was a djusted according to patient size. Iterative reconstruction technique was employed. FINDINGS: There is no acute intraparenchymal hemorrhage. No evidence of mass lesion. No evidence of a cute infarction. 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 There is moderate periventricul ar and subcortical hypodensity probably related to small vessel ischemic disease. There is moderate p rominence of the sulci and ventricles related to cerebral atrophy. Intracranial calcified cerebral at herosclerosis is noted. There are no extra-axial collections. There is no mass effect or midline shif t. Changes in the globes are likely from ocular lens surgery. There is mild mucosal thickening of the paranasal sinuses. IMPRESSION: 1. No acute intracranial abnormality. 2. Age related findings. Reviewed, dictated and finalized at location A.
--- NOTE | ~2021-10-16 | XR_ITS ---
EXAMINATION: XR chest 1V INDICATION: Dizziness TECHNIQUE: AP view of the chest is obtained. COMPARISON: 06/20/2020 FINDINGS: The lungs are free of acute opacities. There is no pleural effusion or pneumothorax. The ca rdiomediastinal silhouette is normal. Calcified pulmonary nodules are consistent with old granulomato us disease. IMPRESSION: 1. No acute cardiopulmonary abnormality. Reviewed, dictated and finalized at location A.
--- NOTE | 2021-10-16 12:44 | ECG_ITS ---
Measurements Intervals [place] Rate: 77 P: [place]: 0 QRS: 43 QRSD: 92 T: 52 QT: 374 QTc: 425 Interpretive Statements ATRIAL FLUTTER/TACHYCARDIA BASELINE ARTIFACT- I, II, III, AVR, AVL, AVF, V4-V6 ABNORMAL ECG Electronically Signed On 10-16-2021 19:40:13 CDT by Chip Saavedra D.O.
--- NOTE | 2021-10-16 12:52 | ED.AMS ---
HPI - Altered Mental Status General Chief Complaint: Altered Mental Status Stated Complaint: altered mental status Time Seen by Provider: 10/16/21 12:47 Source: patient, family and RN notes reviewed Limitations: no limitations History of Present Illness HPI narrative: Patient is 81 years old white male brought to the emergency room by his son who is telling me that patient was confused this morning. Currently patient is asymptomatic. Patient denies any fever, chills, nausea, vomiting, diarrhea, constipation, chest pain, shortness of breath, headache, focal neurodeficit. History of TIA. Patient stopped taking aspirin over the last 7 days after watching aspirin side effect in the TV 1 week ago. Currently on Plavix. Related Data Home Medications Medication Instructions Recorded Confirmed aspirin 81 mg tablet,delayed 81 mg PO DAILY 03/04/20 10/12/21 release atorvastatin 80 mg tablet 80 mg PO DAILY 03/04/20 10/12/21 clopidogrel 75 mg tablet 75 mg PO DAILY 03/04/20 10/12/21 ezetimibe 10 mg tablet 10 mg PO DAILY 03/04/20 10/12/21 tamsulosin 0.4 mg capsule 0.4 mg PO DAILY 03/04/20 10/12/21 metformin 500 mg PO BID 06/20/20 10/12/21 escitalopram oxalate 20 mg PO HS 08/12/21 10/12/21 Allergies Allergy/AdvReac Type Severity Reaction Status Date / Time No Known Allergies Allergy Unknown Unknown Verified 10/16/21 13:31 Review of Systems Review of Systems: All systems reviewed & are unremarkable except as noted in HPI and below PMFSH Past Medical History Medical History Acute blood loss anemia Aortic stenosis BPH (benign prostatic hyperplasia) Carotid stenosis Depression Diabetes mellitus Hemoglobin A1c of 8.5 Erosive esophagitis Essential hypertension Hearing loss Hiatal hernia History of heart attack Hyperlipidemia Stricture intestinal Surgical History Surgical History History of bilateral cataract extraction Approximately 2009 History of coronary artery stent placement 1994 History of laparoscopic cholecystectomy History of right common carotid artery stent placement History of total left knee replacement Status post dilatation of esophageal stricture Family History Family History Mother Cerebrovascular accident Social History Social History Social History: The patient and his have been for the last 55 years. They have 3 adult sons who are in good health. He is a former smoker quit smoking about 25 years ago. He used to drink heavily in his youth but has not drank heavily in the last several years. He drinks about 6 beers a year at this time. He denies any illicit substance use. He served in [employer] for 3 years and then retired from [employer]. Primary care physician: Dr. Mejia Smoking packs per day: 1 Smoking cigarettes per day: 20.0 Years smoked: 20 Smoking pack-years: 20.00 Smoking status: Former smoker Tobacco type: cigarettes Smoking end date: 06/12/94 Alcohol intake: former Substance use: never Gender identity (if verbalized by the patient): Male Sexual Orientation (if Verbalized by the Patient): Straight or Heterosexual Spiritual care concerns: No Exam Narrative: General appearance: Well-developed, well-nourished Skin: Normal color Head: Normocephalic, nontraumatic Eyes: Clear conjunctiva ENT: Oropharynx normal, ears normal, nose normal Neck: Supple, nontender Chest and respiratory: Airway patent, no respiratory distress, no accessory muscle use Heart: Regular rate/rhythm Abdomen: Soft, nontender, no organomegaly, quiet bowel sounds Vascular: Normal peripheral pulses, normal capillary refill. 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
--- NOTE | 2021-10-16 13:00 | PC.NURSE ---
Pt attempted to provide urine sample. Was unable to urinate at this time
[2021-10-16 13:03] LABS: Basophils Percent Auto 0.4 % (0.2-1.2); Eosinophils Absolute Auto 0.3 K/mm3 (0-0.3); Eosinophils Percent Auto 2.8 % (0-4.4); Hematocrit 41.8 % (42.0-52.0); Hemoglobin 12.5 g/dL (14.0-18.0); Immature Granulocyte Absolute 0.03 K/mm3 (0.00-0.031); Immature Granulocyte Percent A 0.3 % (0-0.5); Lymphocytes Absolute Auto 1.56 K/mm3 (0.9-3.2); Lymphocytes Percent Auto 14.9 % (18.3-44.2); Mean Corpuscular HGB Conc 29.9 g/dl (32-36); Mean Corpuscular Hemoglobin 25.7 pg (26-34); Mean Corpuscular Volume 85.8 fl (80-100); Mean Platelet Volume 9.9 fl (7.4-10.4); Monocytes Percent Auto 9.1 % (2.6-8.5); Neutrophils Absolute Auto 7.6 K/mm3 (1.3-6.7); Neutrophils Percent Auto 72.5 % (45.5-73.1); Platelet Count Result 271 k/mm3 (150-375); Red Blood Count 4.87 M/mm3 (4.6-6.20); Red Cell Distribution Width 16.2 % (11.5-14.5); White Blood Count 10.5 K/mm3 (4.5-10.0)
[2021-10-16 13:13] LABS: Alanine Aminotransferase 14 U/L (4-50); Albumin Level 4.1 g/dL (3.5-5.1); Alkaline Phosphatase 127 U/L (38-126); Anion Gap 7 mmol/L (8-16); Aspartate Amino Transferase 32 U/L (17-59); Bilirubin,Total 0.6 mg/dL (0.2-1.3); Blood Urea Nitrogen 15 mg/dL (9-20); Carbon Dioxide 29 mmol/L (22-30); Chloride 103 mmol/L (98-107); Estimated Glomerular Filt Rate > 60; Glucose 205 mg/dL (65-110); Potassium 4.3 mmol/L (3.4-5.0); Sodium 139 mmol/L (137-145)
[2021-10-16 13:16] LABS: INR 1.1; Prothrombin Time 13.5 Seconds (11.1-14.7)
[2021-10-16 13:28] LABS: Troponin I 0.016 ng/mL (0.000-0.034)
[2021-10-16 14:22] LABS: Appearance Urine Clear (Clear); Bilirubin Urine Negative (Negative); Blood Urine Negative (Negative); Color Urine Yellow (Yellow); Glucose Urine UA Negative (Negative); Ketones Urine Negative (Negative); Leukocyte Esterase Ur Negative LEU/UL (Negative); Nitrate Urine Negative (Negative); Protein Urine Negative (Negative); Urobilinogen Urine 0.2 mg/dL (<2.0); pH Urine 5.5 (5.0-9.0)
[2021-10-16 14:25] LABS: Amphetamine Screen Urine Negative (Negative); Barbiturate Screen Urine Negative (Negative); Benzodiazepines Screen Urine Negative (Negative); Cannabinoid Screen Urine Negative (Negative); Cocaine Screen Urine Negative (Negative); Methadone Screen Urine Negative (Negative); Opiate Screen Urine Negative (Negative); Phencyclidine Screen Urine Negative (Negative)
[2021-10-16 14:26] LABS: Add Urine Microscopic? NO
== END 2021-10-16 14:57 | disposition home or self-care (01) ==
PROVIDERS: Emergency Medicine; Emergency Provider Emergency Medicine; PCP Internal Medicine
DX: G45.9 Transient cerebral ischemic attack, unspecified (principal); I48.92 Unspecified atrial flutter; E11.9 Type 2 diabetes mellitus without complications; I65.29 Occlusion and stenosis of unspecified carotid artery; I35.0 Nonrheumatic aortic (valve) stenosis; K22.10 Ulcer of esophagus without bleeding; I10 Essential (primary) hypertension; I25.2 Old myocardial infarction; E78.5 Hyperlipidemia, unspecified; N40.0 Benign prostatic hyperplasia without lower urinary tract symptoms; Z98.42 Cataract extraction status, left eye; Z98.41 Cataract extraction status, right eye; Z95.5 Presence of coronary angioplasty implant and graft; Z96.652 Presence of left artificial knee joint; Z87.891 Personal history of nicotine dependence; Z79.02 Long term (current) use of antithrombotics/antiplatelets; Z79.84 Long term (current) use of oral hypoglycemic drugs; Z79.899 Other long term (current) drug therapy
CPT/HCPCS: 36415; 70450; 71045; 80053; 80307; 81003; 84484; 85025; 85610; 85730; 93005; 99284

== ENCOUNTER 2021-11-11 09:54 | Outpatient (CLI) | payer MEDICARE, SELFPAY ==
--- NOTE | ~2021-11-11 | XR_ITS ---
EXAMINATION: XR humerus RT INDICATION: Right arm pain TECHNIQUE: Two views of the right humerus are obtained. COMPARISON: None available FINDINGS: Bone alignment is normal. There is no fracture. 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 Soft tissues are unremarkable. IMPRESSION: 1. No acute osseous abnormality. Reviewed, dictated and finalized at location F.
== END 2021-11-11 09:55 | disposition home or self-care (01) ==
PROVIDERS: PCP Internal Medicine; Visit Provider Radiology Radiation Oncology
DX: M79.601 Pain in right arm (principal)
CPT/HCPCS: 73060

== ENCOUNTER 2022-04-12 08:19 | Outpatient (CLI) | payer MEDICARE, SELFPAY ==
[2022-04-12 08:33] LABS: Basophils Absolute Auto 0.1 K/mm3 (0.0-0.1); Basophils Percent Auto 0.6 % (0.2-1.2); Eosinophils Absolute Auto 0.4 K/mm3 (0-0.3); Eosinophils Percent Auto 3.6 % (0-4.4); Hematocrit 38.1 % (42.0-52.0); Hemoglobin 11.4 g/dL (14.0-18.0); Immature Granulocyte Absolute 0.06 K/mm3 (0.00-0.031); Immature Granulocyte Percent A 0.6 % (0-0.5); Lymphocytes Absolute Auto 1.94 K/mm3 (0.9-3.2); Lymphocytes Percent Auto 19.8 % (18.3-44.2); Mean Corpuscular HGB Conc 29.9 g/dl (32-36); Mean Corpuscular Hemoglobin 25.6 pg (26-34); Mean Corpuscular Volume 85.4 fl (80-100); Mean Platelet Volume 9.3 fl (7.4-10.4); Monocytes Absolute Auto 0.8 K/mm3 (0.1-0.6); Monocytes Percent Auto 8.3 % (2.6-8.5); Neutrophils Absolute Auto 6.6 K/mm3 (1.3-6.7); Neutrophils Percent Auto 67.1 % (45.5-73.1); Platelet Count Result 337 k/mm3 (150-375); Red Blood Count 4.46 M/mm3 (4.6-6.20); White Blood Count 9.8 K/mm3 (4.5-10.0)
[2022-04-12 08:37] LABS: Blood Urea Nitrogen 12 mg/dL (8-26); Carbon Dioxide 29 mmol/L (22-30); Chloride 100 mmol/L (98-109); Estimated Glomerular Filt Rate > 60; Glucose 156 mg/dL (70-105); Ionized Calcium (POC) 1.11 mmol/L (1.11-1.31); Potassium 4.2 mmol/L (3.5-4.9); Sodium 142 mmol/L (138-146)
[2022-04-12 08:39] LABS: Hypochromasia 1+ (NORMAL); Platelet Estimate Adequate (Adequate); Schistocytes None Seen (NORMAL)
[2022-04-12 10:40] LABS: Iron 33 ug/dL (49-181)
[2022-04-12 10:52] LABS: Percent Iron Saturation 8 % (20-50)
[2022-04-12 11:06] LABS: Alanine Aminotransferase 17 U/L (6-50); Alkaline Phosphatase 160 U/L (38-126); Anion Gap 12 mmol/L (8-16); Aspartate Amino Transferase 36 U/L (17-59); Bilirubin,Total 1.1 mg/dL (0.2-1.3); Blood Urea Nitrogen 13 mg/dL (9-20); Calcium 8.7 mg/dL (8.4-10.2); Carbon Dioxide 28 mmol/L (22-30); Chloride 101 mmol/L (98-107); Estimated Glomerular Filt Rate > 60; Glucose 150 mg/dL (65-110); Lactate Dehydrogenase 292 U/L (120-246); Potassium 4.1 mmol/L (3.4-5.0); Sodium 141 mmol/L (137-145)
[2022-04-12 11:25] LABS: Albumin Level 4.4 g/dL (3.5-5.1)
== END 2022-04-12 08:20 | disposition home or self-care (01) ==
PROVIDERS: PCP Internal Medicine; Visit Provider Internal Medicine Hematology & Oncology
DX: D64.9 Anemia, unspecified (principal)
CPT/HCPCS: 36415; 80047; 80053; 82607; 82728; 83540; 83550; 83615; 85025

== ENCOUNTER 2022-04-15 01:03 | Emergency (ER) | payer MEDICARE, SELFPAY ==
[2022-04-15 01:04] VITALS: BP 147/59; PULSE 84; RESP 18; TEMP 36.1; O2SAT 98
--- NOTE | 2022-04-15 01:32 | ED.GENADULT ---
HPI - General Adult General Chief complaint: Wound/Laceration Stated complaint: wound wont stop bleeding Time Seen by Provider: 04/15/22 01:13 Source: patient and family Mode of arrival: ambulatory Limitations: no limitations History of Present Illness HPI narrative: Presents c/o scalp wound that started bleeding after pt picked scab off of it and would not stop bleeding at home. States taking Plavix and Aspirin and was unable to stop bleeding. Denies injury or other c/o at this time. Related Data Home Medications Medication Instructions Recorded Confirmed aspirin 81 mg tablet,delayed 81 mg PO DAILY 03/04/20 11/18/21 release (Adult Aspirin Regimen) atorvastatin 80 mg tablet (Lipitor) 80 mg PO DAILY 03/04/20 11/18/21 clopidogrel 75 mg tablet (Plavix) 75 mg PO DAILY 03/04/20 11/18/21 ezetimibe 10 mg tablet (Zetia) 10 mg PO DAILY 03/04/20 11/18/21 tamsulosin 0.4 mg capsule 0.4 mg PO DAILY 03/04/20 11/18/21 metformin 500 mg tablet,extended 500 mg PO BID 06/20/20 11/18/21 release 24 hr escitalopram oxalate 10 mg tablet 20 mg PO HS 08/12/21 11/18/21 Allergies Allergy/AdvReac Type Severity Reaction Status Date / Time No Known Allergies Allergy Unknown Unknown Verified 11/18/21 09:04 Review of Systems Review of Systems: CONSTITUTIONAL: Denies fever, chills, or sweats. EYES: Denies visual changes, redness, or discharge. ENT: Denies rhinorrhea, congestion, sore throat, or otalgia. CARDIOVASCULAR: Denies chest pain, palpitations, or edema. RESPIRATORY: Denies cough or dyspnea. GASTROINTESTINAL: Denies abdominal pain, nausea, vomiting, or diarrhea. GENITOURINARY: Denies dysuria or hematuria. SKIN: Scalp wound bleeding. Denies rash or itching. MUSCULOSKELETAL: Denies back pain, joint pain, or myalgia. NEUROLOGIC: Denies headache, numbness, or weakness. PSYCHIATRIC: Denies anxiety or depression. [facility] Past Medical History Medical History Acute blood loss anemia Aortic stenosis BPH (benign prostatic hyperplasia) Carotid stenosis Depression Diabetes mellitus Hemoglobin A1c of 8.5 Erosive esophagitis Essential hypertension Hearing loss Hiatal hernia History of heart attack Hyperlipidemia Stricture intestinal Surgical History Surgical History History of bilateral cataract extraction Approximately 2009 History of coronary artery stent placement x2, 1994 History of laparoscopic cholecystectomy History of right common carotid artery stent placement History of total left knee replacement Status post dilatation of esophageal stricture Family History Family History Mother Cerebrovascular accident Social History Social History Social History: The patient and his have been for the last 55 years. They have 3 adult sons who are in good health. He is a former smoker quit smoking about 25 years ago. He used to drink heavily in his youth but has not drank heavily in the last several years. He drinks about 6 beers a year at this time. He denies any illicit substance use. He served in [employer] for 3 years and then retired from [employer]. Primary care physician: Dr. Mejia Smoking packs per day: 1 Smoking cigarettes per day: 20.0 Years smoked: 20 Smoking pack-years: 20.00 Smoking status: Former smoker Tobacco type: cigarettes Smoking end date: 06/12/94 Alcohol intake: former Substance use: never Gender identity (if verbalized by the patient): Male Sexual Orientation (if Verbalized by the Patient): Straight or Heterosexual Spiritual care concerns: No Exam Narrative: GENERAL: Well-appearing, well-nourished, and in no acute distress. HEAD: Normocephalic, atraumatic. EYES: PERRLA and EOMI. ENT: Nares clear, no rhinorrhea or epistaxis. Muc
[2022-04-15] MEDS: CELLULOSE OXIDIZED 2 x 14 INCH 1 PKT XX ×2 (01:56)
[2022-04-15] MEDS: LIDO 2%/EPINEPHRINE 1:100,000 50 ML VIAL INFILTRATE (01:56)
== END 2022-04-15 02:03 | disposition home or self-care (01) ==
LOC: ANHED 01:38
PROVIDERS: Emergency Provider Nurse Practitioner; PCP Internal Medicine
DX: S01.00XA Unspecified open wound of scalp, initial encounter (principal); I35.0 Nonrheumatic aortic (valve) stenosis; I65.29 Occlusion and stenosis of unspecified carotid artery; I10 Essential (primary) hypertension; I25.2 Old myocardial infarction; E11.9 Type 2 diabetes mellitus without complications; E78.5 Hyperlipidemia, unspecified; K22.10 Ulcer of esophagus without bleeding; N40.0 Benign prostatic hyperplasia without lower urinary tract symptoms; Z79.82 Long term (current) use of aspirin; Z79.84 Long term (current) use of oral hypoglycemic drugs; Z98.42 Cataract extraction status, left eye; Z98.41 Cataract extraction status, right eye; Z95.5 Presence of coronary angioplasty implant and graft; Z96.652 Presence of left artificial knee joint; X58.XXXA Exposure to other specified factors, initial encounter
CPT/HCPCS: 99282

== ENCOUNTER 2022-05-10 17:22 | Inpatient (IN) | payer MEDICARE, SELFPAY ==
[2022-05-10] VITALS (10 sets, daily range): BP systolic 125–156; BP diastolic 60–85; PULSE 75–95; RESP 18–33; TEMP 36.6–36.8; O2SAT 96–100
--- NOTE | ~2022-05-10 | XR_ITS ---
EXAMINATION: XR chest 1V portable DATE: 05/22/2022 11:03 INDICATION: Shortness of breath. Cough. TECHNIQUE: A single frontal view of the chest was obtained. COMPARISON: chest CT 05/11/2022, chest single view 05/18/22 FINDINGS: Calcified bilateral lung nodules and calcified hilar and mediastinal lymph nodes are consis tent with old granulomatous disease. There is a small left pleural effusion. No pneumothorax. The hea rt size is normal. IMPRESSION: 1. Small left pleural effusion. Reviewed, dictated and finalized at location A. FITS COUNSELOR
--- NOTE | ~2022-05-10 | XR_ITS ---
AP view of the pelvis and AP and lateral views of the right hip Clinical history: Pain Findings: No acute fracture or dislocation is seen. Osseous alignment is anatomic. Bilateral hip and SI joint spaces are preserved. Vascular calcifications noted. Impression: No significant abnormality is seen. Reviewed, dictated and finalized at location [] ENT DEVELOPMENT ADVISOR Impression: No significant abnormality is seen.
--- NOTE | ~2022-05-10 | XR_ITS ---
EXAMINATION: XR chest 1V portable DATE: 05/18/2022 06:23 INDICATION: Shortness of breath TECHNIQUE: frontal view of the chest was obtained. COMPARISON: Chest radiograph dated 05/15/2022 FINDINGS: Interval increase in subtle opacities in the bilateral lower lung zones. Azygos lobe and fissure at t he right upper lung zone. No pleural effusion or pneumothorax. The cardiomediastinal silhouette is no rmal. IMPRESSION: 1. Increased opacities in the bilateral lower lung zones which could represent pulmonary edema and/or pneumonia. Reviewed, dictated and finalized at location A. E SIDEWALL TIRE BUFFER
--- NOTE | ~2022-05-10 | XR_ITS ---
Clinical Indication: Cough AP and lateral views of the chest: Comparison: 05/22/2022 Findings: Small left pleural effusion present with probable left basilar atelectatic change. Right cesar ng clear. Cardiomediastinal silhouette is within normal limits. Bones and soft tissues are unremarka ble. Impression: Small left pleural effusion with probable left basilar atelectatic change. Correlate clinically for p neumonia. Reviewed, dictated and finalized at location [] IED BEHAVIOR SPECIALIST Impression: Small left pleural effusion with probable left basilar atelectatic change. Brandon elate clinically for pneumonia.
--- NOTE | ~2022-05-10 | XR_ITS ---
EXAMINATION: XR chest 1V Exam Date/Time: 05/10/2022 18:55 APPLICATION INTEGRATOR HISTORY: SOB AFTER +COVID TEST X1WEEK AGO Comparison: 10/16/2021. RESULT: Lines, tubes, and devices: None. Lungs and pleura: Increased reticular opacities and cuffing in the majority of the right lung and th e medial left lower lung. Ill-defined groundglass opacities in the right midlung and left peripheral midlung. Streaky bibasilar opacities likely representing bibasilar atelectasis/scar. Minimal right co stophrenic angle blunting. Cardiomediastinal silhouette: Stable. Other: No acute osseous or upper abdominal finding. IMPRESSION: Pulmonary opacities may reflect atypical/viral infection. Trace right pleural effusion. Reviewed, dictated and finalized at location K. ICATION INTEGRATOR IMPRESSION: Pulmonary opacities may reflect atypical/viral infection. Trace right pleural e ffusion.
--- NOTE | ~2022-05-10 | CT_ITS ---
EXAMINATION: CT brain wo con DATE: 05/20/2022 13:54 INDICATION: Facial droop. Confusion. TECHNIQUE: Computed tomography (CT) of the head was performed without intravenous contrast. The dose- length product was 681.00 mGy-cm. Automated exposure control and iterative reconstruction technique w ere employed. COMPARISON: CT dated 10/16/2021 FINDINGS: Generalized atrophy. There is compensatory dilation of the ventricles. There are scattered mild periventricular and subcortical white matter changes, most likely related to small vessel ischem ic disease (microangiopathy). There are chronic bilateral lacunar infarctions. No midline shift. Para nasal sinuses and mastoids are pneumatized. No depressed skull fractures. IMPRESSION: 1. No acute intracranial abnormality. 2: Chronic bilateral lacunar infarctions. 3: Chronic age-related findings. As per stroke protocol, I called these results to emergency room, discussed with the patient's nurse Meche, on third medical floor at 05/20/2022 14:03 MILIEU COUNSELOR. Reviewed, dictated and finalized at location A. EU COUNSELOR IMPRESSION: 1. No acute intracranial abnormality. 2: Chronic bilateral lacunar infarctions. 3: Chronic age-related findings. As per stroke protocol, I called these results to emergency room, discussed wit h the patient's nurse Meche, on third medical floor at 05/20/2022 14:03 MILIEU COUNSELOR.
--- NOTE | ~2022-05-10 | XR_ITS ---
XR chest 1V portable 05/15/2022 06:42 Indication: Shortness of breath Procedure: AP portable chest Comparison: Comparison to multiple prior studies sequentially, with oldest reviewed study dated 02/2021. Findings: Heart size normal. No focal air space disease, pulmonary edema, pleural effusion or suspect ed pneumothorax. Stable bibasilar infiltrates with peribronchial thickening. No significant effusion or pneumothorax. There is atherosclerosis. No acute osseous abnormality. Impression: 1: Stable chronic bibasilar infiltrates which may represent atelectasis or scarring. Pneumonia less f avored. Reviewed, dictated and finalized at location A. RIDER Impression: 1: Stable chronic bibasilar infiltrates which may represent atelectasis or scar ring. Pneumonia less favored.
--- NOTE | ~2022-05-10 | US_ITS ---
EXAMINATION:US venous doppler LE BI INDICATION:Lower extremity edema TECHNIQUE: Multiple grayscale, color flow and Doppler images of the bilateral lower extremity deep ve nous systems were obtained and reviewed. COMPARISON:No prior studies for comparison. FINDINGS: The common femoral, superficial femoral and popliteal veins demonstrate normal respiratory variation, augmentation and compressibility. Color flow is also seen within the posterior tibial, pe roneal, greater saphenous and profunda veins. IMPRESSION: 1: No lower extremity deep venous thrombosis. Reviewed, dictated and finalized at location A. ERY VENT PLUG INSERTER
--- NOTE | ~2022-05-10 | CT_ITS ---
EXAMINATION: CTA chest PE protocol DATE: 05/11/2022 14:23 INDICATION: Respiratory failure. Hypoxia. TECHNIQUE: Computed tomography angiography (CTA) of the chest was performed with 100 mL Omnipaque-350 intravenous contrast timed to evaluate the pulmonary arteries. Coronal maximum intensity projection 3D-reconstructions were created by the technologist. Automated exposure control and iterative reconst ruction technique were employed. The dose-length product was 468.52 mGy-cm. COMPARISON: Chest CT 10/08/2021 FINDINGS: There is smooth septal thickening in the lungs bilaterally. There is mild dependent atelect asis. There are centrilobular nodules in right lower lobe. There are mild groundglass opacities in th e upper lobes. There are groundglass nodules in right middle lobe. Calcified bilateral lung nodules a nd calcified hilar and mediastinal lymph nodes are consistent with old granulomas disc disease. There are small pleural effusions. The heart size is normal. There are coronary artery calcifications. No pericardial effusion. There is no pulmonary embolus. There is a small sliding hiatal hernia. Calcific ations in the liver and spleen are consistent with old granulomatous disease. There are changes of ch olecystectomy. There is a 5 mm stone in left kidney. There is mild thoracic spondylosis. IMPRESSION: 1. No pulmonary embolus. 2. Diffuse lung disease, likely a combination of mild pulmonary edema and mild pneumonia. 3. Small pleural effusions. Reviewed, dictated and finalized at location A. UNTANT MANAGER
--- NOTE | ~2022-05-10 | CT_ITS ---
EXAMINATION: CTA brain carotid DATE: 05/20/2022 14:14 INDICATION: Stroke. Confusion. TECHNIQUE: Computed tomographic angiography (CTA) of the head was performed with 100 mL Omnipaque-350 intravenous contrast. CTA of the neck was performed with intravenous contrast. Automated exposure co ntrol and iterative reconstruction technique were employed. The dose-length product was 1208.83 mGy-c m. Maximum intensity projection and volume rendered 3D-reconstructions were created by the technfranklin on a separate workstation. COMPARISON: Head CT 05/20/2022, 10/16/21 FINDINGS: HEAD CTA: There is an old infarct involving the right frontal lobe and anterior right insula. There i s chronic encephalomalacia involving the lentiform nuclei bilaterally. There are scattered areas of l ow attenuation in the cerebral white matter. There is no intracranial hemorrhage, acute infarction, o r abnormal intracranial mass lesion. The ventricles are normal in size for the degree of diffuse brai n volume loss. There are likely changes of ocular lens replacement surgeries. There is mucosal thicke dariana in the paranasal sinuses and nasal cavity. The mastoid air cells are normal. Left vertebral wilfredo ry is dominant. There is no significant stenosis of basilar artery or the posterior cerebral arteries . There is no significant stenosis of the intracranial internal carotid arteries or anterior or middl e cerebral arteries. Anterior communicating artery is normal. Posterior communicating arteries are no t identified. There is no aneurysm. NECK CTA: There are small pleural effusions. There is septal thickening in the lungs, consistent with mild pulmonary edema. There is mild scarring at the lung apices. Calcified mediastinal lymph nodes a re consistent with old granulomatous disease. There is no significant stenosis of the vertebral arter ies. There is a patent stent in right common carotid artery and internal carotid artery. There is com pression of the stent at the bifurcation with 54% stenosis relative to normal distal stent diameter. There is 8% stenosis of the proximal left internal carotid artery relative to normal distal artery cesar men diameter. There is severe cervical spondylosis. IMPRESSION: 1. Old infarct involving right frontal lobe and anterior right insula. 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 2. Mild nonspecific cerebral white matter disease, which likely represents chronic small vessel ische armando disease. 3. No aneurysm or significant intracranial arterial sclerosis. 4. Patent stent in right common carotid artery and internal carotid artery with compression of the st ent at the carotid bifurcation with moderate stenosis. 5. 8% stenosis of the proximal left internal carotid artery relative to normal distal artery lumen di ameter. 6. Mild pulmonary edema with small pleural effusions. Reviewed, dictated and finalized at location E. OLOGY TECHNICIAN IMPRESSION: 1. Old infarct involving right frontal lobe and anterior right insula. Chronic encephalomalacia in the bilateral lentiform nuclei. 2. Mild nonspecific cerebral white matter disease, which likely represents casting and pasting supervisor karina small vessel ischemic disease. 3. No aneurysm or significant intracranial arterial sclerosis. 4. Patent stent in right common carotid artery and internal carotid artery with compression of the stent at the carotid bifurcation with moderate stenosis. 5. 8% stenosis of the proximal left internal carotid artery relative to normal distal artery lumen diameter. 6. Mild pulmonary edema with small pleural effusions.
[2022-05-10 21:25] LABS: Influenza A QL RT-PCR Positive (Negative); Influenza B QL RT-PCR Negative (Negative); SARS-CoV-2 RNA PCR Negative
--- NOTE | 2022-05-10 21:33 | ED.SOB ---
HPI - SOB/Dyspnea General Chief Complaint: Shortness of Breath/Dyspnea Stated Complaint: sob, covid positive last week Time Seen by Provider: 05/10/22 20:45 History of Present Illness HPI Narrative: 82-year-old male history of hypertension, hyperlipidemia, diabetes, COPD, aortic regurgitation and a recent CVA presents to the emergency room for increasing shortness of breath. 2 weeks ago patient was at [facility] to have diagnostic testing prior to aortic regurg repair, when he suffered a CVA. Patient was transported to [facility], where it was found that he possibly had a thrombotic event due to carotid artery stent. Patient states that he spent 10 days at the [facility] hospital, where he was found to have COVID. Patient is complaining of increasing shortness of breath and is unable to walk from one end of the room to the other without having to sit down due to his dyspnea. Related Data Home Medications Medication Instructions Recorded Confirmed atorvastatin 80 mg tablet (Lipitor) 80 mg PO DAILY 03/04/20 11/18/21 ezetimibe 10 mg tablet (Zetia) 10 mg PO DAILY 03/04/20 11/18/21 tamsulosin 0.4 mg capsule 0.4 mg PO DAILY 03/04/20 11/18/21 metformin 500 mg tablet,extended 500 mg PO BID 06/20/20 11/18/21 release 24 hr escitalopram oxalate 10 mg tablet 20 mg PO HS 08/12/21 11/18/21 albuterol sulfate 90 mcg/actuation inhalation 05/10/22 aerosol inhaler rivaroxaban 20 mg tablet (Xarelto) mg 05/10/22 05/10/22 Allergies Allergy/AdvReac Type Severity Reaction Status Date / Time No Known Allergies Allergy Unknown Unknown Verified 05/10/22 20:09 Review of Systems Review of Systems: CONSTITUTIONAL: Denies fever, chills, or sweats. EYES: Denies visual changes, redness, or discharge. ENT: Denies rhinorrhea, congestion, sore throat, or otalgia. CARDIOVASCULAR: Denies chest pain, palpitations, or edema. RESPIRATORY: Reports dyspnea GASTROINTESTINAL: Denies abdominal pain, nausea, vomiting, or diarrhea. GENITOURINARY: Denies dysuria or hematuria. SKIN: Denies rash or itching. MUSCULOSKELETAL: Denies back pain, joint pain, or myalgia. NEUROLOGIC: Denies headache, numbness, dizziness, or weakness. PSYCHIATRIC: Denies anxiety or depression. [facility] Past Medical History Medical History Acute blood loss anemia Aortic stenosis BPH (benign prostatic hyperplasia) Carotid stenosis Depression Diabetes mellitus Hemoglobin A1c of 8.5 Erosive esophagitis Essential hypertension Hearing loss Hiatal hernia History of heart attack Hyperlipidemia Stricture intestinal Surgical History Surgical History History of bilateral cataract extraction Approximately 2009 History of coronary artery stent placement 1994 History of laparoscopic cholecystectomy History of right common carotid artery stent placement History of total left knee replacement Status post dilatation of esophageal stricture Family History Family History Mother Cerebrovascular accident Social History Social History Social History: The patient and his have been for the last 55 years. They have 3 adult sons who are in good health. He is a former smoker quit smoking about 25 years ago. He used to drink heavily in his youth but has not drank heavily in the last several years. He drinks about 6 beers a year at this time. He denies any illicit substance use. He served in the [employer] for 3 years and then retired from [employer]. Primary care physician: Dr. Mejia Smoking packs per day: 1 Smoking cigarettes per day: 20.0 Years smoked: 20 Smoking pack-years: 20.00 Smoking status: Former smoker Tobacco type: cigarettes Smoking end date: 06/12/94 Alcohol intake: former Substance use: never Gender identity (if verbalized by th
[2022-05-10 22:35] LABS: Basophils Absolute Auto 0.1 K/mm3 (0.0-0.1); Basophils Percent Auto 0.6 % (0.2-1.2); Eosinophils Absolute Auto 0.2 K/mm3 (0-0.3); Eosinophils Percent Auto 1.6 % (0-4.4); Hematocrit 30.6 % (42.0-52.0); Hemoglobin 8.5 g/dL (14.0-18.0); Immature Granulocyte Absolute 0.08 K/mm3 (0.00-0.031); Immature Granulocyte Percent A 0.7 % (0-0.5); Lymphocytes Absolute Auto 1.08 K/mm3 (0.9-3.2); Lymphocytes Percent Auto 8.9 % (18.3-44.2); Mean Corpuscular HGB Conc 27.8 g/dl (32-36); Mean Corpuscular Hemoglobin 24.1 pg (26-34); Mean Corpuscular Volume 86.7 fl (80-100); Mean Platelet Volume 10.1 fl (7.4-10.4); Monocytes Absolute Auto 0.9 K/mm3 (0.1-0.6); Monocytes Percent Auto 7.6 % (2.6-8.5); Neutrophils Absolute Auto 9.8 K/mm3 (1.3-6.7); Neutrophils Percent Auto 80.6 % (45.5-73.1); Nucleated Red Blood Cells Perc 0.3 % (0.0-0.2); Platelet Count Result 349 k/mm3 (150-375); Red Blood Count 3.53 M/mm3 (4.6-6.20); Red Cell Distribution Width 20.4 % (11.5-14.5); White Blood Count 12.2 K/mm3 (4.5-10.0)
[2022-05-10 23:01] LABS: Alanine Aminotransferase 18 U/L (6-50); Alkaline Phosphatase 177 U/L (38-126); Anion Gap 11 mmol/L (8-16); Aspartate Amino Transferase 53 U/L (17-59); Bilirubin,Total 1.7 mg/dL (0.2-1.3); Blood Urea Nitrogen 21 mg/dL (9-20); Calcium 8.6 mg/dL (8.4-10.2); Carbon Dioxide 27 mmol/L (22-30); Chloride 104 mmol/L (98-107); Estimated CRCL calculation 61 ml/min; Estimated Glomerular Filt Rate > 60; Glucose 147 mg/dL (65-110); Potassium 3.5 mmol/L (3.4-5.0); Sodium 142 mmol/L (137-145)
[2022-05-10 23:02] LABS: Lactic Acid Reflex 2.7 mmol/L (0.7-2.0)
--- NOTE | 2022-05-10 23:07 | PM.IMHP ---
H&P: HPI History of Present Illness Date/Time: 05/10/22 23:07 Chief Complaint: shortness of breath Narrative: this is an 82-year-old male with past medical history significant for atrial fibrillation, rate controlled anticoagulated, aortic stenosis, type 2 diabetes mellitus, benign prostatic hyperplasia, hypertension, patient was recently discharged from outside hospital when home he comes back today due to worsening shortness of breath cough productive of sputum in copious amount of secretion, generalized weakness, poor appetite, chills. patient was brought via EMS he was in severe respiratory distress require supplemental oxygen. Preliminary workup was significant for chest x-ray was reported as: IMPRESSION: Pulmonary opacities may reflect atypical/viral infection. Trace right pleural effusion. patient tested positive for influenza type A Review of Systems Review of Systems: shortness of breath, cough productive of copious amount of sputum. Constitutional: Constitutional: Reports chills, Reports fatigue, Reports fever(s), Reports lethargy, Reports poor appetite and Reports weakness Eyes: Eyes: Denies change in vision ENT: Denies dysphagia, Denies vertigo, Denies dizziness, Reports nasal congestion and Denies odynophagia Cardiovascular: Cardiovascular: Denies chest pain, Reports leg edema, Denies lightheadedness and Denies palpitations Respiratory: Respiratory: Reports chest congestion, Reports excessive phlegm production, Reports dyspnea and Reports wheezing Gastrointestinal: Gastrointestinal: Denies abdominal pain, Denies dyspepsia, Denies heartburn, Denies diarrhea, Denies nausea and Denies vomiting Genitourinary: Genitourinary: Denies dysuria Musculoskeletal: Musculoskeletal: Reports back pain Integumentary/Breasts: Skin/Breast: Denies rash Neurologic: Denies vertigo, Denies dizziness, Denies focal weakness and Denies Sensory deficit (Neuro) Psychiatric: Psychiatric: Reports no additional psychiatric complaints and Reports as per HPI Endocrine: Endocrine: Denies cold intolerance, Denies flushing, Denies heat intolerance, Denies polyphagia, Denies polydipsia and Denies palpitations Hematologic/Lymphatic: Hematologic/Lymphatic: Reports no additional hematologic/lymphatic complaints and Reports as per HPI Allergic/Immunologic: Allergic/Immunologic: Reports no additional allergic/immunologic complaints and Reports as per HPI [facility] Past Medical History Medical History (Updated 05/12/22 @ 05:12 by Reynaldo Cristina MD) Acute blood loss anemia Aortic stenosis BPH (benign prostatic hyperplasia) Carotid stenosis Depression Diabetes mellitus Hemoglobin A1c of 8.5 Erosive esophagitis Essential hypertension Hearing loss Hiatal hernia History of heart attack Hyperlipidemia Stricture intestinal Surgical History Surgical History History of bilateral cataract extraction Approximately 2009 History of coronary artery stent placement x2, 1994 History of laparoscopic cholecystectomy History of right common carotid artery stent placement History of total left knee replacement Status post dilatation of esophageal stricture Family History Family History Mother Cerebrovascular accident Social History Social History Social History: The patient and his have been for the last 55 years. They have 3 adult sons who are in good health. He is a former smoker quit smoking about 25 years ago. He used to drink heavily in his youth but has not drank heavily in the last several years. He drinks about 6 beers a year at this time. He denies any illicit substance use. He served in the [employer] for 3 years and then retired from [employer]. Primary care physician: Dr. Mejia Smoking packs per day: 1 Smoking cigarettes per day: 20
[2022-05-10] MEDS: IPRATROPIUM BR 0.02% INH SOLN 0.5 MG/2.5 ML VIAL INHALATION (23:21)
[2022-05-10] MEDS: ALBUTEROL SULFATE NEB 2.5 MG/3 ML INH INHALATION (23:21)
[2022-05-10 23:24] LABS: NT Pro B Type Natriuretic Pept 2050 pg/mL (5-100); Troponin I 0.032 ng/mL (0.000-0.034)
--- NOTE | 2022-05-10 23:47 | PC.NURSE ---
Dr. Bahena at patient bedside. Verbal order given to not administer IV fluids.
[2022-05-11] VITALS (18 sets, daily range): BP systolic 102–138; BP diastolic 51–90; PULSE 66–100; RESP 16–26; TEMP 36.5–36.7; O2SAT 65–100; BMI 28.0
--- NOTE | 2022-05-11 | ECHO_ITS ---
Patient Info Name: Robert Brady Age: 82 years : 1940 Gender: Male Ht: 69 in Wt: 189 lbs BSA: 2.06 m2 HR: 77 bpm BP: 134 / 67 mmHg Heart Rhythm: Sinus Rhythm Technical Quality: Fair Exam Date: 05/11/2022 2:51 PM Exam Location: [facility] Pulmonary Patient Status: Inpatient Admit Date: 05/10/2022 Staff Ordering Physician: Maxi Montaño MD Security Escort: Jessica Ramos RDCS Attending Provider: Maxi Montaño MD Exam Type: CA echo dop color flow w con Study Info Indications - chf Complete two-dimensional, color flow and Doppler transthoracic echocardiogram is performed with contrast to opacify the left ventricle and to improve the deliniation of the left ventricle endocardial borders. Contrast/Agitated Saline Contrast/Ag. Saline: Definity Amount: 3.00 ml Administered By: Jessica Ramos RDCS Existing IV Access: Yes IV Access Condition: patent with no signs of infiltration Summary 1. Left ventricular chamber dimension is mildly enlarged. 2. There is mildly increased left ventricular wall thickness. 3. Left ventricular systolic function is normal, estimated at 65-70%. 4. The left ventricular diastolic function is abnormal. 5. Left atrial chamber dimension is mildly enlarged. 6. There is critical aortic valve stenosis with a peak velocity of 399.09 cm/s, mean gradient of 43 mmHg, and aortic valve area of 0.40 cm2. 7. There is severe aortic valve calcification. 8. There is mild mitral valve regurgitation. 9. There is mild tricuspid valve regurgitation. 10. Moderate pulmonary hypertension, estimated pulmonary arterial systolic pressure is 48 mmHg. Left Ventricle Left ventricular chamber dimension is mildly enlarged. Left ventricular systolic function is normal, estimated at 65-70%. There is mildly increased left ventricular wall thickness. The left ventricular diastolic function is abnormal. Right Ventricle Right ventricular chamber dimension is normal. Right ventricular systolic function is normal. Left Atria Left atrial chamber dimension is mildly enlarged. Right Atria Right atrial chamber dimension is normal. Atrial Septum Intact interatrial septum visualized by color flow imaging. Aortic Valve There is critical aortic valve stenosis with a peak velocity of 399.09 cm/s, mean gradient of 43 mmHg, and aortic valve area of 0.40 cm2. The aortic valve is probable trileaflet. There is trace aortic valve regurgitation. There is severe aortic valve calcification. Pulmonic Valve The pulmonic valve is normal. There is no pulmonic valve stenosis. There is trace pulmonic regurgitation. Mitral Valve The mitral valve has thickened leaflets. There is no mitral valve stenosis. There is mild mitral valve regurgitation. Tricuspid Valve The tricuspid valve leaflets are normal. There is no significant tricuspid valve stenosis. There is mild tricuspid valve regurgitation. Moderate pulmonary hypertension, estimated pulmonary arterial systolic pressure is 48 mmHg. Pericardium/Pleural The pericardium appears normal. There is no pericardial effusion. Inferior Vena Cava Dilated inferior vena cava with <50% collapse upon inspiration consistent with elevated right atrial pressure, 10 mmHg. Aorta The aortic root size at the sinus of Valsalva is normal. There is mild aortic atherosclerosis. Left Ventricular Outflow Tract
--- NOTE | 2022-05-11 00:11 | PC.NURSE ---
family has been called and notified. Spoke with Sabine on phone. Puneet and Yoan to call and update Ang. Ang's number in chart is correct but call will no go through.
--- NOTE | 2022-05-11 01:07 | ADMGEN ---
This patient, Robert Brady, was admitted to Medical Room 347-. Patient/family oriented to hospital policies and general routines including ID bracelet, bed and alarms, visiting hours, pain management, procedures, bathroom and other care routines, personal items, smoking policy, room service/diet, and visiting hours. Information on how to activate the Rapid Response Team has been discussed. Patient/Family are encouraged to report perceived risks to care and to ask questions if they do not understand what they are told or what they should do.
[2022-05-11 01:29] LABS: Reflex Lactic Acid Yes or No Add Lactic
[2022-05-11] MEDS: IPRATROPIUM BR 0.02% INH SOLN 0.5 MG/2.5 ML VIAL INHALATION ×4 (03:55→16:42)
[2022-05-11] MEDS: ALBUTEROL SULFATE NEB 2.5 MG/3 ML INH INHALATION ×4 (03:55→16:42)
[2022-05-11 06:17] LABS: Lactic Acid 2.8 mmol/L (0.7-2.0)
[2022-05-11 06:20] LABS: Creatine Kinase 177 U/L (55-170)
[2022-05-11] MEDS: PANTOPRAZOLE 40 MG TABLET PO (09:01)
[2022-05-11] MEDS: ATORVASTATIN 40 MG TABLET 80 MG PO (09:01)
[2022-05-11] MEDS: TAMSULOSIN HCL 0.4 MG CAPSULE PO (09:01)
[2022-05-11] MEDS: APIXABAN 5 MG TABLET PO ×2 (09:01→21:49)
[2022-05-11] MEDS: FUROSEMIDE INJ 40 MG/4 ML VIAL IV PUSH ×2 (09:01→17:22)
[2022-05-11] MEDS: IRBESARTAN 150 MG TABLET PO (09:01)
[2022-05-11] MEDS: OSELTAMIVIR PHOSPHATE 75 MG CAPSULE PO ×2 (09:01→21:48)
[2022-05-11] MEDS: FLUTICASONE/SALMETEROL 115-21 MCG INHALER 1 PUFF 2 PUFF INHALATION (09:47)
--- NOTE | 2022-05-11 11:56 | PM.IMPN ---
Progress Note: A&P Assessment and Plan (1) Influenza: Code(s): J11.1 - Influenza due to unidentified influenza virus with other respiratory manifestations Status: Acute (2) Atrial fibrillation with rapid ventricular response: Code(s): I48.91 - Unspecified atrial fibrillation Status: Acute (3) Aortic stenosis: Code(s): I35.0 - Nonrheumatic aortic (valve) stenosis Status: Acute (4) Diabetes mellitus: Qualifiers: Diabetes mellitus type: type 2 Diabetes mellitus nursing home insulin use: without nursing home use Diabetes mellitus complication status: without complication Qualified Code(s): E11.9 - Type 2 diabetes mellitus without complications Code(s): E11.9 - Type 2 diabetes mellitus without complications Status: Acute Plan Acute hypoxic respiratory failure Requiring oxygen supplementation. BNP is 2049. He also has bilateral leg swellng. check echo if not done already. Possible pneumonia cover with ceftriaxone and azithromycin Likely acute on chronic congestive heart failure unknown diastolic or systolic. Check echocardiogram diuresis as ordered acute influenza A oseltamivir ordered Mild leukocytosis anemia chronic lactic acidosis Atypical pneumonia Hyperlipidemia Diabetes type 2 hypertension coronary Artery disease status post cardiac stents x2 in 1994 Recent CVA treated at [place] Recent COVID infection Subjective Date/time seen: 05/11/22 11:56 Interval history: ED HPI: 82-year-old male history of hypertension, hyperlipidemia, diabetes, COPD, aortic regurgitation and a recent CVA presents to the emergency room for increasing shortness of breath.? 2 weeks ago patient was at [facility] to have diagnostic testing prior to aortic regurg repair, when he suffered a CVA.? Patient was transported to [facility], where it was found that he possibly had a thrombotic event due to carotid artery stent.? Patient states that he spent 10 days at the [facility] hospital, where he was found to have COVID.? Patient is complaining of increasing shortness of breath and is unable to walk from one end of the room to the other without having to sit down due to his dyspnea. 05/11/2022: No overnight events. Remains on oxygen. Reports shortness of breath on exertion denies any chest pain cough present. No fever chills Review of Systems Review of Systems: All systems reviewed & are unremarkable except as noted in HPI and below Exam Narrative: GENERAL: Well-appearing, well-nourished, no physical limitations, and in no acute distress. HEAD: Normocephalic, atraumatic. EYES: Conjunctivae normal, PERRLA and EOMI. CHEST: coarse breath sounds bilaterally, bilateral rhonchi HEART: Regular rate and rhythm.? No murmur heard.? Normal peripheral pulses. ABDOMEN: Soft, nontender, nondistended, normal active bowel sounds. EXTREMITIES: Normal range of motion.? bilateral lower extremity pitting edema, No clubbing or cyanosis SKIN: Warm, dry, no rash. No noted wounds NEURO: No focal deficits.? Alert and oriented x3. MAEW. CN's II-XI intact bilaterally PSYCH: Cooperative. Normal mood and affect. Objective Data Vital Signs Vital Signs: Vital Signs - 24 hr 05/10/22 17:29 05/10/22 20:43 05/10/22 20:45 Temperature 97.8 F 98.2 F Pulse Rate 95 78 Respiratory Rate 18 24 H Blood Pressure 131/60 125/85 Pulse Oximetry 97 97 97 Oxygen Delivery Room Air Oxygen Flow Rate 05/10/22 23:22 05/10/22 23:29 05/10/22 20:08 Temperature Pulse Rate 84 82 82 Respiratory Rate 22 H 22 H 33 H Blood Pressure 156/73 H Pulse Oximetry 98 Oxygen Delivery Oxygen Flow Rate 05/10/22 20:32 05/10/22 21:02 05/10/22 23:42 Temperature Pulse Rate 75 75 95 Respiratory Rate 33 H 22 H 32 H Blood Pressure 125/85 144/66 H 136/74 Pulse Oximetry 96 97 100 Oxygen Delivery Oxygen Flow Rate 05/11/22 00:01 05/10/22 23:30 05/11/22 00:35 Temperature 97.8 F Pulse Rate 84 79 Respiratory R
[2022-05-11] MEDS: PERFLUTREN LIPID MICROSPHERES 1.5 ML VIAL DILUTED TO 10 ML TOTAL VOLUME IV PUSH (15:25)
--- NOTE | 2022-05-11 15:35 | IVDEFINITY ---
Prior to administration of IV Definity the patient was educated on the risks and benefits of the imaging enhancing agent including potential adverse side effects. The patient verbalized understanding. Allergies were verified. No exclusion criteria were identified and at least one of the following inclusion criteria were met: 1) physician request, 2) patient technically difficult to image (per the [place] [employer] guidelines of two or more segments not discernable within the apical view), or 3) questionable left ventricular function. ?
[2022-05-11] MEDS: ESCITALOPRAM OXALATE 10 MG TABLET 20 MG PO (21:48)
[2022-05-12] VITALS (18 sets, daily range): BP systolic 100–125; BP diastolic 50–65; PULSE 75–100; RESP 16–28; TEMP 36.4–36.6; O2SAT 96–100
[2022-05-12] MEDS: IPRATROPIUM BR 0.02% INH SOLN 0.5 MG/2.5 ML VIAL INHALATION ×5 (01:44→20:15)
[2022-05-12] MEDS: ALBUTEROL SULFATE NEB 2.5 MG/3 ML INH INHALATION ×5 (01:44→20:15)
[2022-05-12 06:02] LABS: Alanine Aminotransferase 18 U/L (6-50); Albumin Level 3.6 g/dL (3.5-5.1); Alkaline Phosphatase 123 U/L (38-126); Anion Gap 8 mmol/L (8-16); Aspartate Amino Transferase 66 U/L (17-59); Bilirubin,Total 1.4 mg/dL (0.2-1.3); Blood Urea Nitrogen 22 mg/dL (9-20); Carbon Dioxide 27 mmol/L (22-30); Chloride 100 mmol/L (98-107); Estimated CRCL calculation 49 ml/min; Estimated Glomerular Filt Rate > 60; Glucose 154 mg/dL (65-110); Magnesium 1.6 mg/dL (1.6-2.3); Potassium 3.6 mmol/L (3.4-5.0); Sodium 135 mmol/L (137-145)
[2022-05-12 06:03] LABS: Basophils Absolute Auto 0.1 K/mm3 (0.0-0.1); Basophils Percent Auto 0.4 % (0.2-1.2); Eosinophils Absolute Auto 0.1 K/mm3 (0-0.3); Eosinophils Percent Auto 0.8 % (0-4.4); Hematocrit 27.9 % (42.0-52.0); Hemoglobin 7.9 g/dL (14.0-18.0); Immature Granulocyte Percent A 0.9 % (0-0.5); Lymphocytes Absolute Auto 0.68 K/mm3 (0.9-3.2); Lymphocytes Percent Auto 5.8 % (18.3-44.2); Mean Corpuscular HGB Conc 28.3 g/dl (32-36); Mean Corpuscular Hemoglobin 24.5 pg (26-34); Mean Corpuscular Volume 86.6 fl (80-100); Mean Platelet Volume 9.9 fl (7.4-10.4); Monocytes Percent Auto 8.6 % (2.6-8.5); Neutrophils Absolute Auto 9.8 K/mm3 (1.3-6.7); Neutrophils Percent Auto 83.5 % (45.5-73.1); Nucleated Red Blood Cells Perc 0.2 % (0.0-0.2); Platelet Count Result 316 k/mm3 (150-375); Red Blood Count 3.22 M/mm3 (4.6-6.20); Red Cell Distribution Width 20.3 % (11.5-14.5); White Blood Count 11.7 K/mm3 (4.5-10.0)
--- NOTE | 2022-05-12 06:45 | PC.NURSE ---
Received sepsis notification, notified Dr Cristina- no orders received
[2022-05-12 06:57] LABS: Hypochromasia 1+ (NORMAL); Microcytosis 1+ (NORMAL); Platelet Estimate Adequate (Adequate); Schistocytes None Seen (NORMAL)
--- NOTE | 2022-05-12 08:01 | P.CDI_ITS ---
CDI Query Clarified Diagnosis Clarified Diagnosis: Patient with elevated BNP on 05/10/22. Patient receiving IV Lasix. Patient with noted dyspnea, and BLE edema. Patient requiring oxygen supplementation. Please specify type and acuity of heart failure if known. * Acute * Chronic * Acute on Chronic * Unknown * Systolic * Diastolic * Combined Systolic and Diastolic * Unknown
--- NOTE | 2022-05-12 08:01 | WPDCDIQUERY2 ---
CDI Query Clarified Diagnosis Clarified Diagnosis: Patient with elevated BNP on 05/10/22. Patient receiving IV Lasix. Patient with noted dyspnea, and BLE edema. Patient requiring oxygen supplementation. Please specify type and acuity of heart failure if known. Acute Chronic Acute on Chronic Unknown Systolic Diastolic Combined Systolic and Diastolic Unknown
[2022-05-12] MEDS: IRBESARTAN 150 MG TABLET PO (08:33)
[2022-05-12] MEDS: OSELTAMIVIR PHOSPHATE 75 MG CAPSULE PO ×2 (08:33→21:12)
[2022-05-12] MEDS: ATORVASTATIN 40 MG TABLET 80 MG PO (08:33)
[2022-05-12] MEDS: TAMSULOSIN HCL 0.4 MG CAPSULE PO (08:33)
[2022-05-12] MEDS: APIXABAN 5 MG TABLET PO ×2 (08:34→21:12)
[2022-05-12] MEDS: FUROSEMIDE INJ 40 MG/4 ML VIAL IV PUSH ×2 (08:34→17:28)
[2022-05-12] MEDS: PANTOPRAZOLE 40 MG TABLET PO (08:34)
[2022-05-12] MEDS: FLUTICASONE/SALMETEROL 115-21 MCG INHALER 1 PUFF 2 PUFF INHALATION ×2 (09:30→20:15)
--- NOTE | 2022-05-12 17:10 | PM.IMPN ---
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 BNP is 0. He also has bilateral leg swellng. Echo with EF 65-70% critical aortic valve stenosis. Moderate pulmonary hypertension. mildly wheezy and rhonchorous will add Solu-Medrol Possible pneumonia cover with ceftriaxone and azithromycin . CTA ruled out PE. CT chest shows mild pneumonia with combination of mild pulmonary edema. Continue diuresis and IV antibiotics as ordered along with also time if fever. Likely acute on chronic congestive heart failure unknown diastolic or systolic. Check echocardiogram diuresis as ordered acute influenza A oseltamivir ordered Bilateral lower extremity edema venous duplex negative Mild leukocytosis anemia chronic lactic acidosis Atypical pneumonia Hyperlipidemia Diabetes type 2 monitor Accu-Cheks hypertension coronary Artery disease status post cardiac stents x2 in 1994 Recent CVA treated at [place] Recent COVID infection DVT prophylaxis on apixaban Subjective Date/time seen: 05/12/22 17:10 Interval history: ED HPI: 82-year-old male history of hypertension, hyperlipidemia, diabetes, COPD, aortic regurgitation and a recent CVA presents to the emergency room for increasing shortness of breath.? 2 weeks ago patient was at [facility] to have diagnostic testing prior to aortic regurg repair, when he suffered a CVA.? Patient was transported to [facility], where it was found that he possibly had a thrombotic event due to carotid artery stent.? Patient states that he spent 10 days at the [facility] hospital, where he was found to have COVID.? Patient is complaining of increasing shortness of breath and is unable to walk from one end of the room to the other without having to sit down due to his dyspnea. 05/11/2022: No overnight events. Remains on oxygen. Reports shortness of breath on exertion denies any chest pain cough present. No fever chills 05/12/2022 feels about the same. Denies any new complaints. Still has some cough. No fever chills. Review of Systems Review of Systems: All systems reviewed & are unremarkable except as noted in HPI and below Exam Narrative: GENERAL: Well-appearing, well-nourished, no physical limitations, and in no acute distress. HEAD: Normocephalic, atraumatic. EYES: Conjunctivae normal, PERRLA and EOMI. CHEST: coarse breath sounds bilaterally, bilateral rhonchi HEART: Regular rate and rhythm.? No murmur heard.? Normal peripheral pulses. ABDOMEN: Soft, nontender, nondistended, normal active bowel sounds. EXTREMITIES: Normal range of motion.? bilateral lower extremity pitting edema, No clubbing or cyanosis SKIN: Warm, dry, no rash. No noted wounds NEURO: No focal deficits.? Alert and oriented x3. MAEW. CN's II-XI intact bilaterally PSYCH: Cooperative. Normal mood and affect. Objective Data Vital Signs Vital Signs: Vital Signs - 24 hr 05/11/22 22:00 05/11/22 20:00 05/12/22 00:00 Temperature 97.7 F Pulse Rate 74 100 100 Respiratory Rate 16 Blood Pressure 116/54 L Pu
[2022-05-12] MEDS: ESCITALOPRAM OXALATE 10 MG TABLET 20 MG PO (21:12)
[2022-05-12] MEDS: methylPREDNISolone SOD SUCC 40 MG VIAL IV PUSH (21:16)
[2022-05-13] VITALS (16 sets, daily range): BP systolic 106–124; BP diastolic 48–62; PULSE 69–86; RESP 16–20; TEMP 36.2–37.2; O2SAT 93–100
[2022-05-13] MEDS: MELATONIN 5 MG TABLET PO (00:25)
[2022-05-13] MEDS: IPRATROPIUM BR 0.02% INH SOLN 0.5 MG/2.5 ML VIAL INHALATION ×4 (01:34→16:05)
[2022-05-13] MEDS: ALBUTEROL SULFATE NEB 2.5 MG/3 ML INH INHALATION ×4 (01:34→16:05)
[2022-05-13 05:47] LABS: Basophils Percent Auto 0.1 % (0.2-1.2); Hematocrit 27.7 % (42.0-52.0); Hemoglobin 7.9 g/dL (14.0-18.0); Immature Granulocyte Absolute 0.09 K/mm3 (0.00-0.031); Immature Granulocyte Percent A 1.2 % (0-0.5); Lymphocytes Absolute Auto 0.28 K/mm3 (0.9-3.2); Lymphocytes Percent Auto 3.6 % (18.3-44.2); Mean Corpuscular HGB Conc 28.5 g/dl (32-36); Mean Corpuscular Hemoglobin 24.1 pg (26-34); Mean Corpuscular Volume 84.5 fl (80-100); Mean Platelet Volume 9.7 fl (7.4-10.4); Monocytes Absolute Auto 0.2 K/mm3 (0.1-0.6); Monocytes Percent Auto 1.9 % (2.6-8.5); Neutrophils Absolute Auto 7.2 K/mm3 (1.3-6.7); Neutrophils Percent Auto 93.2 % (45.5-73.1); Nucleated Red Blood Cells Perc 0.3 % (0.0-0.2); Platelet Count Result 298 k/mm3 (150-375); Red Blood Count 3.28 M/mm3 (4.6-6.20); Red Cell Distribution Width 19.8 % (11.5-14.5); White Blood Count 7.7 K/mm3 (4.5-10.0)
[2022-05-13 06:00] LABS: Alanine Aminotransferase 21 U/L (6-50); Albumin Level 3.7 g/dL (3.5-5.1); Alkaline Phosphatase 138 U/L (38-126); Anion Gap 11 mmol/L (8-16); Aspartate Amino Transferase 56 U/L (17-59); Bilirubin,Total 1.2 mg/dL (0.2-1.3); Blood Urea Nitrogen 26 mg/dL (9-20); Calcium 8.2 mg/dL (8.4-10.2); Carbon Dioxide 27 mmol/L (22-30); Chloride 101 mmol/L (98-107); Estimated CRCL calculation 45 ml/min; Estimated Glomerular Filt Rate > 60; Glucose 213 mg/dL (65-110); Magnesium 1.7 mg/dL (1.6-2.3); Potassium 3.6 mmol/L (3.4-5.0); Sodium 139 mmol/L (137-145)
[2022-05-13] MEDS: methylPREDNISolone SOD SUCC 40 MG VIAL IV PUSH ×3 (06:51→22:34)
[2022-05-13] MEDS: TAMSULOSIN HCL 0.4 MG CAPSULE PO (09:16)
[2022-05-13] MEDS: OSELTAMIVIR PHOSPHATE 75 MG CAPSULE PO ×2 (09:17→20:38)
[2022-05-13] MEDS: FUROSEMIDE INJ 40 MG/4 ML VIAL IV PUSH ×2 (09:17→16:29)
[2022-05-13] MEDS: IRBESARTAN 150 MG TABLET PO (09:17)
[2022-05-13] MEDS: PANTOPRAZOLE 40 MG TABLET PO (09:17)
[2022-05-13] MEDS: ATORVASTATIN 40 MG TABLET 80 MG PO (09:17)
[2022-05-13] MEDS: APIXABAN 5 MG TABLET PO ×2 (09:17→20:38)
--- NOTE | 2022-05-13 10:44 | PCRCNOTE ---
Window of time for administration has passed. See next scheduled administration.
--- NOTE | 2022-05-13 11:50 | PM.IMPN ---
Progress Note: A&P Assessment and Plan (1) Influenza: Code(s): J11.1 - Influenza due to unidentified influenza virus with other respiratory manifestations Status: Acute (2) Respiratory failure with hypoxia: Code(s): J96.91 - Respiratory failure, unspecified with hypoxia Status: Acute (3) Atrial fibrillation with rapid ventricular response: Code(s): I48.91 - Unspecified atrial fibrillation Status: Acute (4) Aortic stenosis: Code(s): I35.0 - Nonrheumatic aortic (valve) stenosis Status: Acute (5) Diabetes mellitus: Qualifiers: Diabetes mellitus type: type 2 Diabetes mellitus superintendent container terminal insulin use: without snf use Diabetes mellitus complication status: without complication Qualified Code(s): E11.9 - Type 2 diabetes mellitus without complications Code(s): E11.9 - Type 2 diabetes mellitus without complications Status: Acute Plan Acute hypoxic respiratory failure Requiring oxygen supplementation. BNP is 0. He also has bilateral leg swellng. Echo with EF 65-70% critical aortic valve stenosis. Moderate pulmonary hypertension. mildly wheezy and rhonchorous Added on Solu Medrol will add pulmozyme Possible pneumonia cover with ceftriaxone and azithromycin . CTA ruled out PE. CT chest shows mild pneumonia with combination of mild pulmonary edema. Continue diuresis and IV antibiotics as ordered along with also time if fever. Likely acute on chronic congestive heart failure unknown diastolic or systolic. Echo reviewed.diuresis as ordered acute influenza A oseltamivir ordered Bilateral lower extremity edema venous duplex negative Mild leukocytosis anemia chronic lactic acidosis Atypical pneumonia Hyperlipidemia Diabetes type 2 monitor Accu-Cheks hypertension coronary Artery disease status post cardiac stents x2 in 1994 Recent CVA treated at [place] Recent COVID infection DVT prophylaxis on apixaban Subjective Date/time seen: 05/13/22 11:50 Interval history: ED HPI: 82-year-old male history of hypertension, hyperlipidemia, diabetes, COPD, aortic regurgitation and a recent CVA presents to the emergency room for increasing shortness of breath.? 2 weeks ago patient was at [facility] to have diagnostic testing prior to aortic regurg repair, when he suffered a CVA.? Patient was transported to [facility], where it was found that he possibly had a thrombotic event due to carotid artery stent.? Patient states that he spent 10 days at the [facility] hospital, where he was found to have COVID.? Patient is complaining of increasing shortness of breath and is unable to walk from one end of the room to the other without having to sit down due to his dyspnea. 05/11/2022: No overnight events. Remains on oxygen. Reports shortness of breath on exertion denies any chest pain cough present. No fever chills 05/12/2022 feels about the same. Denies any new complaints. Still has some cough. No fever chills. 05/13/2022: Feels okay still short of breath still has cough. Leg swelling persist. Review of Systems Review of Systems: All systems reviewed & are unremarkable except as noted in HPI and below Exam Narrative: GENERAL: Well-appearing, well-nourished, no physical limitations, and in no acute distress. HEAD: Normocephalic, atraumatic. EYES: Conjunctivae normal, PERRLA and EOMI. CHEST: coarse breath sounds bilaterally, bilateral rhonchi HEART: Regular rate and rhythm.? No murmur heard.? Normal peripheral pulses. ABDOMEN: Soft, nontender, nondistended, normal active bowel sounds. EXTREMITIES: Normal range of motion.? bilateral lower extremity pitting edema, No clubbing or cyanosis SKIN: Warm, dry, no rash. No noted wounds NEURO: No focal deficits.? Alert and oriented x3. MAEW. CN's II-XI intact bilaterally PSYCH: Cooperative. Normal mood and affect. Objective Data Vital Signs Vital Signs: Vital Signs - 24 hr 05/12/22 12:50 05/12/22 12:58
[2022-05-13 12:59] LABS: Glucose Point of Care 269 mg/dl (65-105)
[2022-05-13 17:24] LABS: Glucose Point of Care 356 mg/dl (65-105)
[2022-05-13] MEDS: INSULIN ASPART (*BKC) 100 UNITS/ML SUB-Q ×2 (18:29→20:41)
[2022-05-13 20:12] LABS: Glucose Point of Care 337 mg/dl (65-105)
[2022-05-13] MEDS: ESCITALOPRAM OXALATE 10 MG TABLET 20 MG PO (20:38)
[2022-05-13] MEDS: INSULIN GLARGINE (*BKC) 100 UNITS/ML 10 UNITS SUB-Q (20:41)
[2022-05-14] VITALS (21 sets, daily range): BP systolic 105–116; BP diastolic 51–75; PULSE 70–82; RESP 15–20; TEMP 36.4–36.6; O2SAT 98–100
[2022-05-14] MEDS: ALBUTEROL SULFATE NEB 2.5 MG/3 ML INH INHALATION ×6 (00:16→21:13)
[2022-05-14] MEDS: FLUTICASONE/SALMETEROL 115-21 MCG INHALER 1 PUFF 2 PUFF INHALATION ×3 (00:16→21:14)
[2022-05-14] MEDS: IPRATROPIUM BR 0.02% INH SOLN 0.5 MG/2.5 ML VIAL INHALATION ×6 (00:16→21:13)
[2022-05-14 06:30] LABS: Basophils Percent Auto 0.1 % (0.2-1.2); Hematocrit 27.3 % (42.0-52.0); Immature Granulocyte Absolute 0.17 K/mm3 (0.00-0.031); Immature Granulocyte Percent A 1.1 % (0-0.5); Lymphocytes Absolute Auto 0.45 K/mm3 (0.9-3.2); Lymphocytes Percent Auto 2.9 % (18.3-44.2); Mean Corpuscular HGB Conc 29.3 g/dl (32-36); Mean Corpuscular Hemoglobin 24.7 pg (26-34); Mean Corpuscular Volume 84.3 fl (80-100); Mean Platelet Volume 10.3 fl (7.4-10.4); Monocytes Absolute Auto 0.5 K/mm3 (0.1-0.6); Neutrophils Absolute Auto 14.3 K/mm3 (1.3-6.7); Neutrophils Percent Auto 92.9 % (45.5-73.1); Nucleated Red Blood Cells Perc 0.1 % (0.0-0.2); Platelet Count Result 320 k/mm3 (150-375); Red Blood Count 3.24 M/mm3 (4.6-6.20); Red Cell Distribution Width 19.9 % (11.5-14.5); White Blood Count 15.4 K/mm3 (4.5-10.0)
[2022-05-14 06:47] LABS: Alanine Aminotransferase 19 U/L (6-50); Albumin Level 3.5 g/dL (3.5-5.1); Alkaline Phosphatase 134 U/L (38-126); Anion Gap 10 mmol/L (8-16); Aspartate Amino Transferase 73 U/L (17-59); Bilirubin,Total 0.8 mg/dL (0.2-1.3); Blood Urea Nitrogen 42 mg/dL (9-20); Carbon Dioxide 27 mmol/L (22-30); Chloride 100 mmol/L (98-107); Estimated CRCL calculation 39 ml/min; Estimated Glomerular Filt Rate 53; Glucose 208 mg/dL (65-110); Magnesium 1.8 mg/dL (1.6-2.3); Potassium 3.4 mmol/L (3.4-5.0); Sodium 137 mmol/L (137-145)
[2022-05-14] MEDS: methylPREDNISolone SOD SUCC 40 MG VIAL IV PUSH ×3 (06:53→23:15)
[2022-05-14] MEDS: DORNASE ALFA INH SOLN 1 MG/ML 2.5 ML AMP 2.5 MG INHALATION ×2 (07:43→21:22)
[2022-05-14 09:26] LABS: Glucose Point of Care 234 mg/dl (65-105)
[2022-05-14] MEDS: TAMSULOSIN HCL 0.4 MG CAPSULE PO (09:40)
[2022-05-14] MEDS: APIXABAN 5 MG TABLET PO ×2 (09:40→21:16)
[2022-05-14] MEDS: PANTOPRAZOLE 40 MG TABLET PO (09:40)
[2022-05-14] MEDS: OSELTAMIVIR PHOSPHATE 75 MG CAPSULE PO ×2 (09:40→21:16)
[2022-05-14] MEDS: ATORVASTATIN 40 MG TABLET 80 MG PO (09:40)
[2022-05-14] MEDS: INSULIN ASPART (*BKC) 100 UNITS/ML SUB-Q ×3 (09:41→18:12)
[2022-05-14] MEDS: FUROSEMIDE INJ 40 MG/4 ML VIAL IV PUSH ×2 (10:05→17:22)
[2022-05-14] MEDS: polyethylene glycoL 3350 17 GM POWD.PACK PO (11:01)
[2022-05-14] MEDS: IRBESARTAN 150 MG TABLET PO (11:07)
--- NOTE | 2022-05-14 12:08 | PM.IMPN ---
Progress Note: A&P Assessment and Plan (1) Influenza: Code(s): J11.1 - Influenza due to unidentified influenza virus with other respiratory manifestations Status: Acute (2) Respiratory failure with hypoxia: Code(s): J96.91 - Respiratory failure, unspecified with hypoxia Status: Acute (3) Atrial fibrillation with rapid ventricular response: Code(s): I48.91 - Unspecified atrial fibrillation Status: Acute (4) Aortic stenosis: Code(s): I35.0 - Nonrheumatic aortic (valve) stenosis Status: Acute (5) Diabetes mellitus: Qualifiers: Diabetes mellitus type: type 2 Diabetes mellitus singing messenger insulin use: without mcc use Diabetes mellitus complication status: without complication Qualified Code(s): E11.9 - Type 2 diabetes mellitus without complications Code(s): E11.9 - Type 2 diabetes mellitus without complications Status: Acute Plan #Acute hypoxic respiratory failure Requiring oxygen supplementation. BNP is 0. He also has bilateral leg swellng. Echo with EF 65-70% critical aortic valve stenosis. Moderate pulmonary hypertension. mildly wheezy and rhonchorous Added on Solu Medrol will add pulmozyme. Continue same # Possible pneumonia cover with ceftriaxone and azithromycin . CTA ruled out PE. CT chest shows mild pneumonia with combination of mild pulmonary edema. Continue diuresis and IV antibiotics as ordered along with also time if fever. # Likely acute on chronic congestive heart failure unknown diastolic or systolic. Echo reviewed.diuresis as ordered # acute influenza A oseltamivir ordered # Bilateral lower extremity edema venous duplex negative #Mild leukocytosis anemia chronic # lactic acidosis #Atypical pneumonia #Hyperlipidemia #Diabetes type 2 monitor Accu-Cheks # hypertension # coronary Artery disease status post cardiac stents x2 in 1994 #Recent CVA treated at [place] #Recent COVID infection #DVT prophylaxis on apixaban Subjective Date/time seen: 05/14/22 12:08 Interval history: ED HPI: 82-year-old male history of hypertension, hyperlipidemia, diabetes, COPD, aortic regurgitation and a recent CVA presents to the emergency room for increasing shortness of breath.? 2 weeks ago patient was at [facility] to have diagnostic testing prior to aortic regurg repair, when he suffered a CVA.? Patient was transported to [facility], where it was found that he possibly had a thrombotic event due to carotid artery stent.? Patient states that he spent 10 days at the [facility] hospital, where he was found to have COVID.? Patient is complaining of increasing shortness of breath and is unable to walk from one end of the room to the other without having to sit down due to his dyspnea. 05/11/2022: No overnight events. Remains on oxygen. Reports shortness of breath on exertion denies any chest pain cough present. No fever chills 05/12/2022 feels about the same. Denies any new complaints. Still has some cough. No fever chills. 05/13/2022: Feels okay still short of breath still has cough. Leg swelling persist. 05/14/2022: No overnight events oxygen requirement has lowered some today. He feels a little bit better but still has significant cough and congestion. Leg swelling persists Review of Systems Review of Systems: All systems reviewed & are unremarkable except as noted in HPI and below Exam Narrative: GENERAL: Well-appearing, well-nourished, no physical limitations, and in no acute distress. HEAD: Normocephalic, atraumatic. EYES: Conjunctivae normal, PERRLA and EOMI. CHEST: coarse breath sounds bilaterally, bilateral rhonchi HEART: Regular rate and rhythm.? No murmur heard.? Normal peripheral pulses. ABDOMEN: Soft, nontender, nondistended, normal active bowel sounds. EXTREMITIES: Normal range of motion.? bilateral lower extremity pitting edema, No clubbing or cyanosis SKIN: Warm, dry, no rash. No noted wounds NEURO: No
[2022-05-14 12:43] LABS: Glucose Point of Care 294 mg/dl (65-105)
[2022-05-14 18:09] LABS: Glucose Point of Care 296 mg/dl (65-105)
[2022-05-14 19:46] LABS: Glucose Point of Care 301 mg/dl (65-105)
[2022-05-14] MEDS: ESCITALOPRAM OXALATE 10 MG TABLET 20 MG PO (21:15)
[2022-05-14] MEDS: INSULIN GLARGINE (*BKC) 100 UNITS/ML 10 UNITS SUB-Q (21:20)
[2022-05-14 21:30] LABS: Mycoplasma IgM Antibody Titer 235 U/mL (<770)
[2022-05-14 22:38] LABS: Legionella pneumophila Ag Ur Not Detected (Not Detected)
[2022-05-15] VITALS (19 sets, daily range): BP systolic 100–121; BP diastolic 50–70; PULSE 71–88; RESP 16–22; TEMP 35.8–36.6; O2SAT 96–100
[2022-05-15 00:01] LABS: Pneumococcal Antigen Urine Not Detected (Not Detected)
--- NOTE | 2022-05-15 02:15 | PCRCNOTE ---
Window of time for administration has passed. See next scheduled administration.
[2022-05-15] MEDS: IPRATROPIUM BR 0.02% INH SOLN 0.5 MG/2.5 ML VIAL INHALATION ×4 (04:42→21:05)
[2022-05-15] MEDS: ALBUTEROL SULFATE NEB 2.5 MG/3 ML INH INHALATION ×4 (04:42→21:06)
[2022-05-15] MEDS: methylPREDNISolone SOD SUCC 40 MG VIAL IV PUSH ×3 (06:14→22:40)
[2022-05-15 06:39] LABS: Basophils Percent Auto 0.1 % (0.2-1.2); Hematocrit 27.2 % (42.0-52.0); Hemoglobin 7.9 g/dL (14.0-18.0); Immature Granulocyte Absolute 0.21 K/mm3 (0.00-0.031); Immature Granulocyte Percent A 1.4 % (0-0.5); Lymphocytes Absolute Auto 0.34 K/mm3 (0.9-3.2); Lymphocytes Percent Auto 2.2 % (18.3-44.2); Mean Corpuscular Hemoglobin 24.2 pg (26-34); Mean Corpuscular Volume 83.2 fl (80-100); Mean Platelet Volume 9.9 fl (7.4-10.4); Monocytes Absolute Auto 0.7 K/mm3 (0.1-0.6); Monocytes Percent Auto 4.7 % (2.6-8.5); Neutrophils Absolute Auto 14.2 K/mm3 (1.3-6.7); Neutrophils Percent Auto 91.6 % (45.5-73.1); Nucleated Red Blood Cells Perc 0.3 % (0.0-0.2); Platelet Count Result 281 k/mm3 (150-375); Red Blood Count 3.27 M/mm3 (4.6-6.20); Red Cell Distribution Width 19.5 % (11.5-14.5); White Blood Count 15.5 K/mm3 (4.5-10.0)
[2022-05-15 06:53] LABS: Alanine Aminotransferase 22 U/L (6-50); Albumin Level 3.5 g/dL (3.5-5.1); Alkaline Phosphatase 165 U/L (38-126); Anion Gap 9 mmol/L (8-16); Aspartate Amino Transferase 91 U/L (17-59); Bilirubin,Total 0.7 mg/dL (0.2-1.3); Blood Urea Nitrogen 44 mg/dL (9-20); Calcium 7.9 mg/dL (8.4-10.2); Carbon Dioxide 30 mmol/L (22-30); Chloride 97 mmol/L (98-107); Estimated CRCL calculation 45 ml/min; Estimated Glomerular Filt Rate > 60; Glucose 282 mg/dL (65-110); Magnesium 1.9 mg/dL (1.6-2.3); Potassium 3.3 mmol/L (3.4-5.0); Sodium 136 mmol/L (137-145)
--- NOTE | 2022-05-15 08:13 | PM.IMPN ---
Progress Note: A&P Assessment and Plan (1) Influenza: Code(s): J11.1 - Influenza due to unidentified influenza virus with other respiratory manifestations Status: Acute (2) Respiratory failure with hypoxia: Code(s): J96.91 - Respiratory failure, unspecified with hypoxia Status: Acute (3) Atrial fibrillation with rapid ventricular response: Code(s): I48.91 - Unspecified atrial fibrillation Status: Acute (4) Aortic stenosis: Code(s): I35.0 - Nonrheumatic aortic (valve) stenosis Status: Acute (5) Diabetes mellitus: Qualifiers: Diabetes mellitus complication status: without complication Diabetes mellitus intermodal customer service insulin use: without intermodal customer service use Diabetes mellitus type: type 2 Qualified Code(s): E11.9 - Type 2 diabetes mellitus without complications Code(s): E11.9 - Type 2 diabetes mellitus without complications Status: Acute Plan #Acute hypoxic respiratory failure Requiring oxygen supplementation. BNP is 0. He also has bilateral leg swellng. Echo with EF 65-70% critical aortic valve stenosis. Moderate pulmonary hypertension. mildly wheezy and rhonchorous Added on Solu Medrol will add pulmozyme. Continue same. Chest x-ray repeat 05/15/2022 with stable findings # Possible pneumonia cover with ceftriaxone and azithromycin . CTA ruled out PE. CT chest shows mild pneumonia with combination of mild pulmonary edema. Continue diuresis and IV antibiotics as ordered # Likely acute on chronic congestive heart failure unknown diastolic or systolic. Echo reviewed.diuresis as ordered # acute influenza A oseltamivir ordered # Bilateral lower extremity edema venous duplex negative #Mild leukocytosis anemia chronic # lactic acidosis #Atypical pneumonia #Hyperlipidemia #Diabetes type 2 monitor Accu-Cheks adjust basal insulin for hyperglycemia likely steroid induced # hypertension # coronary Artery disease status post cardiac stents x2 in 1994 #Recent CVA treated at [place] #Recent COVID infection #DVT prophylaxis on apixaban # disposition: pt/ot. likely needs rehab placement Discussed with the family Subjective Date/time seen: 05/15/22 08:13 Interval history: ED HPI: 82-year-old male history of hypertension, hyperlipidemia, diabetes, COPD, aortic regurgitation and a recent CVA presents to the emergency room for increasing shortness of breath.? 2 weeks ago patient was at [facility] to have diagnostic testing prior to aortic regurg repair, when he suffered a CVA.? Patient was transported to [facility], where it was found that he possibly had a thrombotic event due to carotid artery stent.? Patient states that he spent 10 days at the [facility] hospital, where he was found to have COVID.? Patient is complaining of increasing shortness of breath and is unable to walk from one end of the room to the other without having to sit down due to his dyspnea. 05/11/2022: No overnight events. Remains on oxygen. Reports shortness of breath on exertion denies any chest pain cough present. No fever chills 05/12/2022 feels about the same. Denies any new complaints. Still has some cough. No fever chills. 05/13/2022: Feels okay still short of breath still has cough. Leg swelling persist. 05/14/2022: No overnight events oxygen requirement has lowered some today. He feels a little bit better but still has significant cough and congestion. Leg swelling persists 05/15/2022: No overnight events reported. Oxygen requirement similar. Chest x-ray reviewed this a.m.. WBC count stable at 15,000 thousand. Likely due to steroid. Labs reviewed mild hypokalemia 3.3. Respiratory culture with growth of normal oropharyngeal keagan. Review of Systems Review of Systems: All systems reviewed & are unremarkable except as noted in HPI and below Exam Narrative: GENERAL: Well-appearing, well-nourished, no physical limitations, and in no acute distress. HEAD: Normo
[2022-05-15 09:11] LABS: Glucose Point of Care 300 mg/dl (65-105)
[2022-05-15] MEDS: DORNASE ALFA INH SOLN 1 MG/ML 2.5 ML AMP 2.5 MG INHALATION ×2 (09:13→21:06)
[2022-05-15] MEDS: FLUTICASONE/SALMETEROL 115-21 MCG INHALER 1 PUFF 2 PUFF INHALATION ×3 (09:19→21:06)
[2022-05-15] MEDS: IRBESARTAN 150 MG TABLET PO (09:41)
[2022-05-15] MEDS: polyethylene glycoL 3350 17 GM POWD.PACK PO (09:41)
[2022-05-15] MEDS: FUROSEMIDE INJ 40 MG/4 ML VIAL IV PUSH ×2 (09:42→17:56)
[2022-05-15] MEDS: ATORVASTATIN 40 MG TABLET 80 MG PO (09:42)
[2022-05-15] MEDS: POTASSIUM CHLORIDE 20 MEQ TABLET 40 MEQ PO (09:42)
[2022-05-15] MEDS: INSULIN ASPART (*BKC) 100 UNITS/ML SUB-Q ×3 (10:01→17:57)
[2022-05-15] MEDS: PANTOPRAZOLE 40 MG TABLET PO (10:03)
[2022-05-15] MEDS: TAMSULOSIN HCL 0.4 MG CAPSULE PO (10:03)
[2022-05-15] MEDS: APIXABAN 5 MG TABLET PO ×2 (10:03→20:50)
[2022-05-15] MEDS: OSELTAMIVIR PHOSPHATE 75 MG CAPSULE PO ×2 (10:03→21:03)
[2022-05-15 13:04] LABS: Glucose Point of Care 277 mg/dl (65-105)
[2022-05-15] MEDS: ACETAMINOPHEN 325 MG TABLET 650 MG PO (15:57)
[2022-05-15] MEDS: SENNA/DOCUSATE SODIUM TABLET 2 TAB PO (17:23)
[2022-05-15 17:47] LABS: Glucose Point of Care 361 mg/dl (65-105)
--- NOTE | 2022-05-15 18:28 | PCRCNOTE ---
Window of time for administration has passed. See next scheduled administration.
[2022-05-15] MEDS: ESCITALOPRAM OXALATE 10 MG TABLET 20 MG PO (20:51)
[2022-05-15] MEDS: INSULIN GLARGINE (*BKC) 100 UNITS/ML 16 UNITS SUB-Q (21:01)
[2022-05-16] VITALS (19 sets, daily range): BP systolic 108–123; BP diastolic 55–72; PULSE 66–90; RESP 18–96; TEMP 36.4–36.7; O2SAT 96–100
[2022-05-16] MEDS: IPRATROPIUM BR 0.02% INH SOLN 0.5 MG/2.5 ML VIAL INHALATION ×5 (00:11→22:06)
[2022-05-16] MEDS: ALBUTEROL SULFATE NEB 2.5 MG/3 ML INH INHALATION ×5 (00:11→22:07)
[2022-05-16] MEDS: methylPREDNISolone SOD SUCC 40 MG VIAL IV PUSH ×3 (05:45→20:38)
[2022-05-16 06:20] LABS: Basophils Percent Auto 0.1 % (0.2-1.2); Eosinophils Percent Auto 0.1 % (0-4.4); Hematocrit 28.3 % (42.0-52.0); Hemoglobin 8.2 g/dL (14.0-18.0); Immature Granulocyte Absolute 0.26 K/mm3 (0.00-0.031); Immature Granulocyte Percent A 1.7 % (0-0.5); Lymphocytes Percent Auto 2.6 % (18.3-44.2); Mean Corpuscular Hemoglobin 23.7 pg (26-34); Mean Corpuscular Volume 81.8 fl (80-100); Mean Platelet Volume 9.8 fl (7.4-10.4); Monocytes Absolute Auto 0.9 K/mm3 (0.1-0.6); Monocytes Percent Auto 5.6 % (2.6-8.5); Neutrophils Absolute Auto 13.8 K/mm3 (1.3-6.7); Neutrophils Percent Auto 89.9 % (45.5-73.1); Nucleated Red Blood Cells Absolute Auto 0.1 K/mm3 (0.0-0.012); Nucleated Red Blood Cells Perc 0.4 % (0.0-0.2); Platelet Count Result 291 k/mm3 (150-375); Red Blood Count 3.46 M/mm3 (4.6-6.20); Red Cell Distribution Width 19.3 % (11.5-14.5); White Blood Count 15.3 K/mm3 (4.5-10.0)
[2022-05-16 06:43] LABS: Alanine Aminotransferase 41 U/L (6-50); Albumin Level 3.7 g/dL (3.5-5.1); Alkaline Phosphatase 184 U/L (38-126); Anion Gap 11 mmol/L (8-16); Aspartate Amino Transferase 115 U/L (17-59); Bilirubin,Total 0.7 mg/dL (0.2-1.3); Blood Urea Nitrogen 41 mg/dL (9-20); Calcium 7.8 mg/dL (8.4-10.2); Carbon Dioxide 29 mmol/L (22-30); Chloride 96 mmol/L (98-107); Estimated CRCL calculation 45 ml/min; Estimated Glomerular Filt Rate > 60; Glucose 281 mg/dL (65-110); Potassium 3.9 mmol/L (3.4-5.0); Sodium 136 mmol/L (137-145)
[2022-05-16 08:13] LABS: Anisocytosis 1+ (NORMAL); Platelet Estimate Adequate (Adequate); Schistocytes None Seen (NORMAL)
[2022-05-16 08:14] LABS: Hypochromasia 2+ (NORMAL)
[2022-05-16 08:15] LABS: Poikilocytosis 1+ (NORMAL)
[2022-05-16 08:48] LABS: Glucose Point of Care 281 mg/dl (65-105)
[2022-05-16] MEDS: SENNA/DOCUSATE SODIUM TABLET 2 TAB PO ×2 (08:49→18:11)
[2022-05-16] MEDS: PANTOPRAZOLE 40 MG TABLET PO (08:49)
[2022-05-16] MEDS: ATORVASTATIN 40 MG TABLET 80 MG PO (08:49)
[2022-05-16] MEDS: APIXABAN 5 MG TABLET PO ×2 (08:49→20:38)
[2022-05-16] MEDS: TAMSULOSIN HCL 0.4 MG CAPSULE PO (08:49)
[2022-05-16] MEDS: FUROSEMIDE INJ 40 MG/4 ML VIAL IV PUSH ×2 (08:49→18:11)
[2022-05-16] MEDS: IRBESARTAN 150 MG TABLET PO (08:49)
[2022-05-16] MEDS: INSULIN ASPART (*BKC) 100 UNITS/ML SUB-Q ×3 (08:53→18:14)
[2022-05-16] MEDS: DORNASE ALFA INH SOLN 1 MG/ML 2.5 ML AMP 2.5 MG INHALATION ×2 (09:35→22:06)
[2022-05-16] MEDS: FLUTICASONE/SALMETEROL 115-21 MCG INHALER 1 PUFF 2 PUFF INHALATION ×2 (09:36→22:07)
[2022-05-16 12:07] LABS: Glucose Point of Care 260 mg/dl (65-105)
[2022-05-16 17:11] LABS: Glucose Point of Care 235 mg/dl (65-105)
--- NOTE | 2022-05-16 17:55 | PM.IMPN ---
Progress Note: A&P Assessment and Plan (1) Influenza: Code(s): J11.1 - Influenza due to unidentified influenza virus with other respiratory manifestations Status: Acute (2) Respiratory failure with hypoxia: Code(s): J96.91 - Respiratory failure, unspecified with hypoxia Status: Acute (3) Atrial fibrillation with rapid ventricular response: Code(s): I48.91 - Unspecified atrial fibrillation Status: Acute (4) Aortic stenosis: Code(s): I35.0 - Nonrheumatic aortic (valve) stenosis Status: Acute (5) Diabetes mellitus: Qualifiers: Diabetes mellitus type: type 2 Diabetes mellitus intermediate frame tender insulin use: without jail use Diabetes mellitus complication status: without complication Qualified Code(s): E11.9 - Type 2 diabetes mellitus without complications Code(s): E11.9 - Type 2 diabetes mellitus without complications Status: Acute Plan # Acute hypoxic respiratory failure Requiring oxygen supplementation. BNP is 0. He also has bilateral leg swellng. Echo with EF 65-70% critical aortic valve stenosis. Moderate pulmonary hypertension. mildly wheezy and rhonchorous. Added on Solu Medrol will add pulmozyme. Continue same. Chest x-ray repeat 05/15/2022 with stable findings. saline nebs ordered # Possible pneumonia cover with ceftriaxone and azithromycin . CTA ruled out PE. CT chest shows mild pneumonia with combination of mild pulmonary edema. Continue diuresis and IV antibiotics as ordered. cahnge antiboiics to oral cefdinir. finishes azithormycin . # Likely acute on chronic congestive heart failure unknown diastolic or systolic. Echo reviewed.diuresis as ordered # acute influenza A oseltamivir ordered # Bilateral lower extremity edema venous duplex negative #Mild leukocytosis anemia chronic # lactic acidosis # Atypical pneumonia # Hyperlipidemia # Diabetes type 2 monitor Accu-Cheks adjust basal insulin for hyperglycemia likely steroid induced # hypertension # Coronary Artery disease status post cardiac stents x 2 in 1994 # Recent CVA treated at [place] # Recent COVID infection # DVT prophylaxis on apixaban # disposition: pt/ot. likely needs rehab placement Discussed with the family Subjective Date/time seen: 05/16/22 17:55 Interval history: ED HPI: 82-year-old male history of hypertension, hyperlipidemia, diabetes, COPD, aortic regurgitation and a recent CVA presents to the emergency room for increasing shortness of breath.? 2 weeks ago patient was at [facility] to have diagnostic testing prior to aortic regurg repair, when he suffered a CVA.? Patient was transported to [facility], where it was found that he possibly had a thrombotic event due to carotid artery stent.? Patient states that he spent 10 days at the [facility] hospital, where he was found to have COVID.? Patient is complaining of increasing shortness of breath and is unable to walk from one end of the room to the other without having to sit down due to his dyspnea. 05/11/2022: No overnight events. Remains on oxygen. Reports shortness of breath on exertion denies any chest pain cough present. No fever chills 05/12/2022 feels about the same. Denies any new complaints. Still has some cough. No fever chills. 05/13/2022: Feels okay still short of breath still has cough. Leg swelling persist. 05/14/2022: No overnight events oxygen requirement has lowered some today. He feels a little bit better but still has significant cough and congestion. Leg swelling persists 05/15/2022: No overnight events reported. Oxygen requirement similar. Chest x-ray reviewed this a.m.. WBC count stable at 15,000 thousand. Likely due to steroid. Labs reviewed mild hypokalemia 3.3. Respiratory culture with growth of normal oropharyngeal keagan. 05/16/2022: No overnight events. Oxygen requirement is same. Still have congestion. Shortness of breath on exertion. No chest pain minimal cough
[2022-05-16 20:08] LABS: Glucose Point of Care 302 mg/dl (65-105)
[2022-05-16] MEDS: CEFDINIR 300 MG CAPSULE PO (20:38)
[2022-05-16] MEDS: ESCITALOPRAM OXALATE 10 MG TABLET 20 MG PO (20:38)
[2022-05-16] MEDS: INSULIN GLARGINE (*BKC) 100 UNITS/ML 20 UNITS SUB-Q (20:44)
[2022-05-17] VITALS (20 sets, daily range): BP systolic 100–143; BP diastolic 54–64; PULSE 66–105; RESP 16–22; TEMP 36.6–36.7; O2SAT 98–99
[2022-05-17] MEDS: IPRATROPIUM BR 0.02% INH SOLN 0.5 MG/2.5 ML VIAL INHALATION ×4 (04:26→16:36)
[2022-05-17] MEDS: ALBUTEROL SULFATE NEB 2.5 MG/3 ML INH INHALATION ×5 (04:26→20:48)
[2022-05-17 05:38] LABS: Basophils Percent Auto 0.1 % (0.2-1.2); Hematocrit 27.2 % (42.0-52.0); Hemoglobin 7.8 g/dL (14.0-18.0); Immature Granulocyte Absolute 0.15 K/mm3 (0.00-0.031); Immature Granulocyte Percent A 1.2 % (0-0.5); Lymphocytes Absolute Auto 0.47 K/mm3 (0.9-3.2); Lymphocytes Percent Auto 3.8 % (18.3-44.2); Mean Corpuscular HGB Conc 28.7 g/dl (32-36); Mean Corpuscular Volume 83.7 fl (80-100); Mean Platelet Volume 10.8 fl (7.4-10.4); Monocytes Percent Auto 7.7 % (2.6-8.5); Neutrophils Absolute Auto 10.8 K/mm3 (1.3-6.7); Neutrophils Percent Auto 87.2 % (45.5-73.1); Nucleated Red Blood Cells Perc 0.3 % (0.0-0.2); Platelet Count Result 264 k/mm3 (150-375); Red Blood Count 3.25 M/mm3 (4.6-6.20); Red Cell Distribution Width 19.4 % (11.5-14.5); White Blood Count 12.4 K/mm3 (4.5-10.0)
[2022-05-17 05:49] LABS: Alanine Aminotransferase 29 U/L (6-50); Albumin Level 3.3 g/dL (3.5-5.1); Alkaline Phosphatase 189 U/L (38-126); Anion Gap 5 mmol/L (8-16); Aspartate Amino Transferase 95 U/L (17-59); Bilirubin,Total 0.7 mg/dL (0.2-1.3); Blood Urea Nitrogen 41 mg/dL (9-20); Calcium 7.8 mg/dL (8.4-10.2); Carbon Dioxide 35 mmol/L (22-30); Chloride 93 mmol/L (98-107); Estimated CRCL calculation 49 ml/min; Estimated Glomerular Filt Rate > 60; Glucose 261 mg/dL (65-110); Magnesium 2.2 mg/dL (1.6-2.3); Potassium 3.7 mmol/L (3.4-5.0); Sodium 133 mmol/L (137-145)
[2022-05-17] MEDS: methylPREDNISolone SOD SUCC 40 MG VIAL IV PUSH ×2 (05:52→13:14)
[2022-05-17 06:42] LABS: Anisocytosis 1+ (NORMAL); Hypochromasia 1+ (NORMAL); Ovalocytes 1+ (NORMAL); Platelet Estimate Adequate (Adequate); Schistocytes None Seen (NORMAL)
[2022-05-17 08:50] LABS: Glucose Point of Care 247 mg/dl (65-105)
[2022-05-17] MEDS: APIXABAN 5 MG TABLET PO ×2 (09:26→20:46)
[2022-05-17] MEDS: IRBESARTAN 150 MG TABLET PO (09:26)
[2022-05-17] MEDS: SENNA/DOCUSATE SODIUM TABLET 2 TAB PO ×2 (09:26→18:01)
[2022-05-17] MEDS: ATORVASTATIN 40 MG TABLET 80 MG PO (09:26)
[2022-05-17] MEDS: FUROSEMIDE INJ 40 MG/4 ML VIAL IV PUSH (09:26)
[2022-05-17] MEDS: CEFDINIR 300 MG CAPSULE PO ×2 (09:26→20:46)
[2022-05-17] MEDS: TAMSULOSIN HCL 0.4 MG CAPSULE PO (09:26)
[2022-05-17] MEDS: PANTOPRAZOLE 40 MG TABLET PO (09:26)
[2022-05-17] MEDS: INSULIN ASPART (*BKC) 100 UNITS/ML SUB-Q ×3 (09:34→18:02)
[2022-05-17] MEDS: DORNASE ALFA INH SOLN 1 MG/ML 2.5 ML AMP 2.5 MG INHALATION ×2 (09:47→20:48)
[2022-05-17] MEDS: FLUTICASONE/SALMETEROL 115-21 MCG INHALER 1 PUFF 2 PUFF INHALATION ×2 (09:47→20:49)
--- NOTE | 2022-05-17 10:55 | PCNWS ---
Weekly nutritional screen. Patient is tolerating current Diabetic consistent carb diet with adequate intake at 100% of meals. No weight loss reported. No nutritional needs at this time.
[2022-05-17 12:11] LABS: Glucose Point of Care 245 mg/dl (65-105)
--- NOTE | 2022-05-17 16:26 | PM.IMPN ---
Progress Note: A&P Assessment and Plan (1) Influenza: Code(s): J11.1 - Influenza due to unidentified influenza virus with other respiratory manifestations Status: Acute (2) Respiratory failure with hypoxia: Code(s): J96.91 - Respiratory failure, unspecified with hypoxia Status: Acute (3) Atrial fibrillation with rapid ventricular response: Code(s): I48.91 - Unspecified atrial fibrillation Status: Acute (4) Aortic stenosis: Code(s): I35.0 - Nonrheumatic aortic (valve) stenosis Status: Acute (5) Diabetes mellitus: Qualifiers: Diabetes mellitus type: type 2 Diabetes mellitus ad terminal makeup operator insulin use: without skilled nursing use Diabetes mellitus complication status: without complication Qualified Code(s): E11.9 - Type 2 diabetes mellitus without complications Code(s): E11.9 - Type 2 diabetes mellitus without complications Status: Acute Plan # Acute hypoxic respiratory failure Requiring oxygen supplementation. BNP is 0. He also has bilateral leg swellng. Echo with EF 65-70% critical aortic valve stenosis. Moderate pulmonary hypertension. mildly wheezy and rhonchorous. Added on Solu Medrol will add pulmozyme. Continue same. Chest x-ray repeat 05/15/2022 with stable findings. saline nebs ordered # Possible pneumonia cover with ceftriaxone and azithromycin . CTA ruled out PE. CT chest shows mild pneumonia with combination of mild pulmonary edema. Continue diuresis and IV antibiotics as ordered. cahnge antiboiics to oral cefdinir. finishes azithormycin . # Likely acute on chronic congestive heart failure unknown diastolic or systolic. Echo reviewed.diuresis as ordered. Still quite volume overloaded will change Lasix to Bumex. Recheck chest x-ray in a.m. # acute influenza A oseltamivir ordered # Bilateral lower extremity edema venous duplex negative #Mild leukocytosis anemia chronic # lactic acidosis # Atypical pneumonia # Hyperlipidemia # Diabetes type 2 monitor Accu-Cheks adjust basal insulin for hyperglycemia likely steroid induced # hypertension # Coronary Artery disease status post cardiac stents x 2 in 1994 # Recent CVA treated at [place] # Recent COVID infection # DVT prophylaxis on apixaban # disposition: pt/ot. likely needs rehab placement however he wishes to go home Subjective Date/time seen: 05/17/22 16:26 Interval history: ED HPI: 82-year-old male history of hypertension, hyperlipidemia, diabetes, COPD, aortic regurgitation and a recent CVA presents to the emergency room for increasing shortness of breath.? 2 weeks ago patient was at [facility] to have diagnostic testing prior to aortic regurg repair, when he suffered a CVA.? Patient was transported to [facility], where it was found that he possibly had a thrombotic event due to carotid artery stent.? Patient states that he spent [address] [facility] hospital, where he was found to have COVID.? Patient is complaining of increasing shortness of breath and is unable to walk from one end of the room to the other without having to sit down due to his dyspnea. 05/11/2022: No overnight events. Remains on oxygen. Reports shortness of breath on exertion denies any chest pain cough present. No fever chills 05/12/2022 feels about the same. Denies any new complaints. Still has some cough. No fever chills. 05/13/2022: Feels okay still short of breath still has cough. Leg swelling persist. 05/14/2022: No overnight events oxygen requirement has lowered some today. He feels a little bit better but still has significant cough and congestion. Leg swelling persists 05/15/2022: No overnight events reported. Oxygen requirement similar. Chest x-ray reviewed this a.m.. WBC count stable at 15,000 thousand. Likely due to steroid. Labs reviewed mild hypokalemia 3.3. Respiratory culture with growth of normal oropharyngeal keagan. 05/16/2022: No overnight events. Oxygen requirement is
[2022-05-17 17:13] LABS: Glucose Point of Care 264 mg/dl (65-105)
[2022-05-17] MEDS: BUMETANIDE INJ 1 MG/4 ML VIAL IV PUSH (18:01)
[2022-05-17] MEDS: predniSONE 20 MG TABLET 40 MG PO (18:01)
[2022-05-17] MEDS: ESCITALOPRAM OXALATE 10 MG TABLET 20 MG PO (20:47)
[2022-05-17] MEDS: INSULIN GLARGINE (*BKC) 100 UNITS/ML 20 UNITS SUB-Q (20:50)
[2022-05-17 20:58] LABS: Glucose Point of Care 376 mg/dl (65-105)
[2022-05-18] VITALS (17 sets, daily range): BP systolic 98–144; BP diastolic 56–68; PULSE 58–100; RESP 16–22; TEMP 36.2–36.7; O2SAT 98–100
[2022-05-18] MEDS: ALBUTEROL SULFATE NEB 2.5 MG/3 ML INH INHALATION ×3 (00:44→13:45)
[2022-05-18] MEDS: IPRATROPIUM BR 0.02% INH SOLN 0.5 MG/2.5 ML VIAL INHALATION ×3 (00:44→13:45)
[2022-05-18 06:05] LABS: Basophils Percent Auto 0.2 % (0.2-1.2); Hematocrit 27.4 % (42.0-52.0); Hemoglobin 7.9 g/dL (14.0-18.0); Immature Granulocyte Absolute 0.19 K/mm3 (0.00-0.031); Immature Granulocyte Percent A 1.7 % (0-0.5); Lymphocytes Absolute Auto 0.47 K/mm3 (0.9-3.2); Lymphocytes Percent Auto 4.2 % (18.3-44.2); Mean Corpuscular HGB Conc 28.8 g/dl (32-36); Mean Corpuscular Hemoglobin 23.5 pg (26-34); Mean Corpuscular Volume 81.5 fl (80-100); Monocytes Absolute Auto 0.9 K/mm3 (0.1-0.6); Monocytes Percent Auto 7.9 % (2.6-8.5); Neutrophils Absolute Auto 9.7 K/mm3 (1.3-6.7); Nucleated Red Blood Cells Absolute Auto 0.1 K/mm3 (0.0-0.012); Nucleated Red Blood Cells Perc 0.4 % (0.0-0.2); Platelet Count Result 243 k/mm3 (150-375); Red Blood Count 3.36 M/mm3 (4.6-6.20); Red Cell Distribution Width 19.5 % (11.5-14.5); White Blood Count 11.2 K/mm3 (4.5-10.0)
[2022-05-18 06:28] LABS: Alanine Aminotransferase 29 U/L (6-50); Albumin Level 3.3 g/dL (3.5-5.1); Alkaline Phosphatase 186 U/L (38-126); Anion Gap 6 mmol/L (8-16); Aspartate Amino Transferase 67 U/L (17-59); Bilirubin,Total 0.7 mg/dL (0.2-1.3); Blood Urea Nitrogen 36 mg/dL (9-20); Calcium 7.8 mg/dL (8.4-10.2); Carbon Dioxide 37 mmol/L (22-30); Chloride 94 mmol/L (98-107); Estimated CRCL calculation 55 ml/min; Estimated Glomerular Filt Rate > 60; Glucose 259 mg/dL (65-110); Magnesium 2.2 mg/dL (1.6-2.3); Potassium 3.4 mmol/L (3.4-5.0); Sodium 137 mmol/L (137-145)
[2022-05-18 06:47] LABS: Hypochromasia 3+ (NORMAL); Platelet Estimate Adequate (Adequate)
[2022-05-18 06:48] LABS: Acanthocytes 1+ (NORMAL); Anisocytosis 1+ (NORMAL); Ovalocytes 1+ (NORMAL); Poikilocytosis 1+ (NORMAL); Schistocytes Rare (NORMAL)
[2022-05-18 08:20] LABS: Glucose Point of Care 233 mg/dl (65-105)
[2022-05-18] MEDS: FLUTICASONE/SALMETEROL 115-21 MCG INHALER 1 PUFF 2 PUFF INHALATION (09:29)
[2022-05-18] MEDS: DORNASE ALFA INH SOLN 1 MG/ML 2.5 ML AMP 2.5 MG INHALATION (09:29)
[2022-05-18] MEDS: BUMETANIDE INJ 1 MG/4 ML VIAL IV PUSH ×2 (10:16→17:09)
[2022-05-18] MEDS: SENNA/DOCUSATE SODIUM TABLET 2 TAB PO ×2 (10:16→17:09)
[2022-05-18] MEDS: ATORVASTATIN 40 MG TABLET 80 MG PO (10:16)
[2022-05-18] MEDS: APIXABAN 5 MG TABLET PO ×2 (10:16→21:57)
[2022-05-18] MEDS: TAMSULOSIN HCL 0.4 MG CAPSULE PO (10:17)
[2022-05-18] MEDS: PANTOPRAZOLE 40 MG TABLET PO (10:17)
[2022-05-18] MEDS: IRBESARTAN 150 MG TABLET PO (10:17)
[2022-05-18] MEDS: predniSONE 20 MG TABLET 40 MG PO ×2 (10:17→17:09)
[2022-05-18] MEDS: INSULIN ASPART (*BKC) 100 UNITS/ML SUB-Q ×2 (10:21→17:52)
[2022-05-18 12:29] LABS: Glucose Point of Care 163 mg/dl (65-105)
--- NOTE | 2022-05-18 15:45 | PM.IMPN ---
Progress Note: A&P Assessment and Plan (1) Influenza: Code(s): J11.1 - Influenza due to unidentified influenza virus with other respiratory manifestations Status: Acute Assessment and Plan: Continue Tamiflu (2) Respiratory failure with hypoxia: Code(s): J96.91 - Respiratory failure, unspecified with hypoxia Status: Acute Assessment and Plan: Multifactorial, secondary to critical aortic valve stenosis, acute on chronic heart failure, moderate pulmonary hypertension, influenza infection as well as possible bacterial pneumonia Stable on 2 L nasal cannula, wean as tolerated (3) Atrial fibrillation with rapid ventricular response: Code(s): I48.91 - Unspecified atrial fibrillation Status: Acute Assessment and Plan: Rate controlled (4) Aortic stenosis: Code(s): I35.0 - Nonrheumatic aortic (valve) stenosis Status: Acute Assessment and Plan: Critical aortic valve stenosis (5) Diabetes mellitus: Qualifiers: Diabetes mellitus complication status: without complication Diabetes mellitus mcc insulin use: without roasterman use Diabetes mellitus type: type 2 Qualified Code(s): E11.9 - Type 2 diabetes mellitus without complications Code(s): E11.9 - Type 2 diabetes mellitus without complications Status: Acute Assessment and Plan: Accu-Cheks sliding scale insulin, continue home insulin, suspect hyperglycemia worsened from steroid administration Check A1c (6) Acute on chronic heart failure: Code(s): I50.9 - Heart failure, unspecified Status: Acute Assessment and Plan: Acute exacerbation, unknown whether it is systolic or diastolic, EF 65-70% but likely hyperdynamic from critical aortic valve stenosis as opposed to truly accurate assessment Continue diuresis with Bumex Cardiology consult pending Plan Pertinent history: Recent CVA treated at [place], recent COVID infection, coronary disease with history of stents x2 in 1984 Disposition: PT/OT recommending rehab patient requesting home health care DVT prophylaxis with apixaban GI prophylaxis not indicated Code status full code Subjective Date/time seen: 05/18/22 15:45 Interval history: No overnight events noted. No chest pain or shortness of breath. No nausea, vomiting or diarrhea. No fevers or chills. Patient states he feels much better than yesterday, but still not ready to go home. Stable on 2 L nasal cannula Review of Systems Review of Systems: 12 point review of systems was assessed and was negative except as noted in the HPI Exam Narrative: General: No acute distress, alert and oriented per baseline HEENT: Atraumatic, normocephalic, mucous membranes moist CV: Irregularly irregular, S1, S2 Lungs: Diminished throughout, scattered wheezes Abdomen: Soft, nontender, nondistended Extremities: 2+ pitting edema bilateral lower extremities Skin: No rashes noted, no lesions or wounds seen Psych: Euthymic, normal affect Objective Data Vital Signs Vital Signs: Vital Signs - 24 hr 05/17/22 16:00 05/17/22 16:37 05/17/22 16:50 Temperature Pulse Rate 66 75 78 Respiratory Rate 16 16 Blood Pressure Pulse Oximetry Oxygen Delivery Oxygen Flow Rate 05/17/22 20:49 05/17/22 21:09 05/17/22 21:32 Temperature 98.1 F Pulse Rate 78 85 80 Respiratory Rate 18 16 22 H Blood Pressure 143/54 H Pulse Oximetry 98 Oxygen Delivery Oxygen Flow Rate 05/17/22 21:35 05/17/22 20:00 05/17/22 20:00 Temperature 97.9 F Pulse Rate 79 83 79 Respiratory Rate 22 H 22 H Blood Pressure 143/54 H Pulse Oximetry 98 98 Oxygen Delivery Nasal Cannula Oxygen Flow Rate 2 05/18/22 00:45 05/18/22 00:59 05/18/22 00:00 Temperature Pulse Rate 79 82 74 Respiratory Rate 20 20 Blood Pressure Pulse Oximetry Oxygen Delivery Oxygen Flow Rate 05/18/22 04:00 05/18/22 06:00 05/18/22 09:30 Temperature
[2022-05-18 17:22] LABS: Glucose Point of Care 265 mg/dl (65-105)
--- NOTE | 2022-05-18 18:13 | PCRCNOTE ---
Window of time for administration has passed. See next scheduled administration.
[2022-05-18 21:27] LABS: Glucose Point of Care 299 mg/dl (65-105)
[2022-05-18] MEDS: INSULIN GLARGINE (*BKC) 100 UNITS/ML 20 UNITS SUB-Q (21:57)
[2022-05-18] MEDS: ESCITALOPRAM OXALATE 10 MG TABLET 20 MG PO (21:57)
[2022-05-19] VITALS (21 sets, daily range): BP systolic 100–133; BP diastolic 50–57; PULSE 59–102; RESP 16–24; TEMP 36.3; O2SAT 92–98
[2022-05-19] MEDS: DORNASE ALFA INH SOLN 1 MG/ML 2.5 ML AMP 2.5 MG INHALATION ×3 (00:11→20:07)
[2022-05-19] MEDS: IPRATROPIUM BR 0.02% INH SOLN 0.5 MG/2.5 ML VIAL INHALATION ×5 (00:11→20:08)
[2022-05-19] MEDS: ALBUTEROL SULFATE NEB 2.5 MG/3 ML INH INHALATION ×5 (00:11→20:07)
[2022-05-19 05:59] LABS: Basophils Percent Auto 0.1 % (0.2-1.2); Hematocrit 28.6 % (42.0-52.0); Hemoglobin 8.3 g/dL (14.0-18.0); Immature Granulocyte Absolute 0.22 K/mm3 (0.00-0.031); Immature Granulocyte Percent A 1.9 % (0-0.5); Lymphocytes Absolute Auto 0.74 K/mm3 (0.9-3.2); Lymphocytes Percent Auto 6.4 % (18.3-44.2); Mean Corpuscular Hemoglobin 23.6 pg (26-34); Mean Corpuscular Volume 81.5 fl (80-100); Mean Platelet Volume 9.7 fl (7.4-10.4); Monocytes Percent Auto 8.8 % (2.6-8.5); Neutrophils Absolute Auto 9.5 K/mm3 (1.3-6.7); Neutrophils Percent Auto 82.8 % (45.5-73.1); Nucleated Red Blood Cells Perc 0.3 % (0.0-0.2); Platelet Count Result 246 k/mm3 (150-375); Red Blood Count 3.51 M/mm3 (4.6-6.20); Red Cell Distribution Width 19.2 % (11.5-14.5); White Blood Count 11.5 K/mm3 (4.5-10.0)
[2022-05-19 06:10] LABS: Alanine Aminotransferase 34 U/L (6-50); Albumin Level 3.2 g/dL (3.5-5.1); Alkaline Phosphatase 179 U/L (38-126); Anion Gap 4 mmol/L (8-16); Aspartate Amino Transferase 70 U/L (17-59); Bilirubin,Total 0.9 mg/dL (0.2-1.3); Blood Urea Nitrogen 34 mg/dL (9-20); Calcium 7.7 mg/dL (8.4-10.2); Carbon Dioxide 38 mmol/L (22-30); Chloride 94 mmol/L (98-107); Estimated CRCL calculation 49 ml/min; Estimated Glomerular Filt Rate > 60; Glucose 177 mg/dL (65-110); Sodium 136 mmol/L (137-145)
[2022-05-19 07:50] LABS: Hypochromasia 2+ (NORMAL); Platelet Estimate Adequate (Adequate)
[2022-05-19 07:52] LABS: Acanthocytes 1+ (NORMAL); Anisocytosis 1+ (NORMAL); Poikilocytosis 1+ (NORMAL); Schistocytes None Seen (NORMAL)
[2022-05-19 08:11] LABS: Glucose Point of Care 166 mg/dl (65-105)
[2022-05-19] MEDS: BUMETANIDE INJ 1 MG/4 ML VIAL IV PUSH (08:56)
[2022-05-19] MEDS: PANTOPRAZOLE 40 MG TABLET PO (08:56)
[2022-05-19] MEDS: IRBESARTAN 150 MG TABLET PO (08:56)
[2022-05-19] MEDS: predniSONE 20 MG TABLET 40 MG PO (08:56)
[2022-05-19] MEDS: SENNA/DOCUSATE SODIUM TABLET 2 TAB PO ×2 (08:56→17:46)
[2022-05-19] MEDS: TAMSULOSIN HCL 0.4 MG CAPSULE PO (08:56)
[2022-05-19] MEDS: ATORVASTATIN 40 MG TABLET 80 MG PO (08:56)
[2022-05-19] MEDS: APIXABAN 5 MG TABLET PO ×2 (08:56→20:43)
[2022-05-19] MEDS: FLUTICASONE/SALMETEROL 115-21 MCG INHALER 1 PUFF 2 PUFF INHALATION ×2 (09:59→20:08)
[2022-05-19 10:25] LABS: Hemoglobin A1C 6.4 % (<5.7)
[2022-05-19 12:07] LABS: Glucose Point of Care 195 mg/dl (65-105)
--- NOTE | 2022-05-19 13:14 | PM.CNCAR ---
Assessment and Plan Assessment and plan (1) Acute on chronic heart failure: Code(s): I50.9 - Heart failure, unspecified Status: Acute Assessment and Plan: Presented with shortness of breath and hypoxia. Evidence of CHF on CXR. BNP elevated at ~2000. He also has significant LE edema. Secondary to critical aortic stenosis, possibly some contribution from his atrial fibrillation. Also has moderate pulmonary hypertension. LV systolic function is preserved He has been placed on IV bumex b.i.d which I agree with. Be cautious to avoid intravascular volume depletion as he is preload dependent with his critical He is borderline hypotensive so unable to adjust medical therapy any further LINDA hose modest fluid restriction (2) Aortic stenosis: Code(s): I35.0 - Nonrheumatic aortic (valve) stenosis Status: Acute Assessment and Plan: Critical by most recent echo with CHRISTIANO 0.4 cm2 mean gradient of 43 mmHg, peak velocity 399.09 cm/s. Follows with Dr. Thacker who has initiated workup for TAVR Would avoid beta blockers and vasodilators Short interval outpatient follow up with Dr. Thacker (3) Atrial fibrillation: Code(s): I48.91 - Unspecified atrial fibrillation Status: Acute Assessment and Plan: Rate controlled and on systemic a/c with apixaban. (4) Influenza: Code(s): J11.1 - Influenza due to unidentified influenza virus with other respiratory manifestations Status: Acute Assessment and Plan: Mangement per hospitalist (5) Respiratory failure with hypoxia: Code(s): J96.91 - Respiratory failure, unspecified with hypoxia Status: Acute Assessment and Plan: Improved. Management per hospitalist. History of Present Illness History of Present Illness Consult date/time: 05/19/22 13:14 Requesting physician: Ruby Goldstein DO Consult reason: congestive heart failure and aortic stenosis Reason For Visit: Influenza Narrative: Mr. Brady is an 82-year-old male with a past medical history significant for hypertension, hyperlipidemia, IA status post stents in 1996, carotid stenosis, recent CVA treated at [place],and aortic stenosis which was previously documented as borderline severe by cardiac catheterization in June of 2019 and unchanged by echo in December of 2019 and February of 2021. Mr. Brady is followed by Dr. Thacker for his carotid and aortic stenosis. He is hospitalized currently because of respiratory failure secondary to influenza, CHF, and possible pneumonia. we are being asked to see him because CHF critical aortic stenosis. He has been receiving IV Bumex twice daily for a couple of days but still has significant lower extremity edema. He denies having any shortness of breath currently. He denies having any chest pain, palpitations, syncope, or presyncope. He does however state that he had had some falls prior to this hospitalization but he is unclear whether or not these were caused by loss of consciousness. He seems to think that they were mechanical falls. Currently, he is in atrial fibrillation with controlled ventricular response. In regards to his diagnosis of atrial fibrillation he does not seem to be aware that he has atrial fibrillation and therefore cannot recall when this was diagnosed. He does say that he has been on and off of Eliquis for years. According to his medical record he was agreeable to workup for possible TAVR with plans for right and left heart catheterization with Dr. Thacker. at the time of my exam he is sitting comfortably in the chair does not appear to be in any distress and offers no complaints at this time. Review of Systems Constitutional: Constitutional: Denies chills, Denies fever(s), Denies headache(s) and Denies malaise Eyes: Eyes: Denies change in vision ENT: Reports Normal hearing present, Denies dizziness, Denies headache(s) and Denies hearing loss Cardiovascular: Cardiovascular: De
[2022-05-19 16:44] LABS: Glucose Point of Care 349 mg/dl (65-105)
--- NOTE | 2022-05-19 17:10 | PM.DS ---
DS: Discharge Diagnosis Discharge Diagnosis (1) Influenza: Code(s): J11.1 - Influenza due to unidentified influenza virus with other respiratory manifestations Status: Acute Assessment and Plan: Continue Tamiflu (2) Respiratory failure with hypoxia: Code(s): J96.91 - Respiratory failure, unspecified with hypoxia Status: Acute Assessment and Plan: Multifactorial, secondary to critical aortic valve stenosis, acute on chronic heart failure, moderate pulmonary hypertension, influenza infection as well as possible bacterial pneumonia Stable on 2 L nasal cannula, wean as tolerated (3) Atrial fibrillation with rapid ventricular response: Code(s): I48.91 - Unspecified atrial fibrillation Status: Acute Assessment and Plan: Rate controlled (4) Aortic stenosis: Code(s): I35.0 - Nonrheumatic aortic (valve) stenosis Status: Acute Assessment and Plan: Critical aortic valve stenosis (5) Diabetes mellitus: Qualifiers: Diabetes mellitus type: type 2 Diabetes mellitus halfway insulin use: without halfway use Diabetes mellitus complication status: without complication Qualified Code(s): E11.9 - Type 2 diabetes mellitus without complications Code(s): E11.9 - Type 2 diabetes mellitus without complications Status: Acute Assessment and Plan: Accu-Cheks sliding scale insulin, continue home insulin, suspect hyperglycemia worsened from steroid administration Check A1c (6) Acute on chronic heart failure: Code(s): I50.9 - Heart failure, unspecified Status: Acute Assessment and Plan: Acute exacerbation, unknown whether it is systolic or diastolic, EF 65-70% but likely hyperdynamic from critical aortic valve stenosis as opposed to truly accurate assessment Continue diuresis with Bumex Cardiology consult pending Plan Pertinent history: Recent CVA treated at [place], recent COVID infection, coronary disease with history of stents x2 in 1984 Disposition: PT/OT recommending rehab patient requesting home health care DVT prophylaxis with apixaban GI prophylaxis not indicated Code status full code DS: Summary Time Spent with Patient Time attestation: Total time spent providing and/or coordinating discharge services: Exam Narrative: General: No acute distress, alert and oriented per baseline HEENT: Atraumatic, normocephalic, mucous membranes moist CV: Irregularly irregular, S1, S2 Lungs: Diminished throughout, scattered wheezes Abdomen: Soft, nontender, nondistended Extremities: 2+ pitting edema bilateral lower extremities Skin: No rashes noted, no lesions or wounds seen Psych: Euthymic, normal affect DS: Data Data Completed and Pending Labs on day of discharge: Labs from last 24 hours 05/19/22 05/19/22 05/19/22 16:41 12:00 08:06 WBC RBC Hgb Hct MCV MCH MCHC RDW Plt Count MPV Immature Gran % (Auto) Neut % (Auto) Lymph % (Auto) [place] % (Auto) Eos % (Auto) Baso % (Auto) Lymph # (Auto) [place] # (Auto) Eos # (Auto) Baso # (Auto) Abs Immat Gran (auto) Absolute Neuts (auto) Absolute Nucleated RBC Nucleated RBC % Platelet Estimate Hypochromasia Poikilocytosis Anisocytosis Acanthocytes (Spur) Schistocytes Sodium Potassium Chloride Carbon Dioxide Anion Gap BUN Creatinine Estim Creat Clear Calc Estimated GFR Glucose POC Capillary Glucose 349 H 195 H 166 H Hemoglobin A1c Calcium Total Bilirubin AST ALT Alkaline Phosphatase Total Protein Albumin 05/19/22 05/19/22 05/19/22 05:47 05:47 05:47 WBC 11.5 H RBC 3.51 L Hgb 8.3 L Hct 28.6 L MCV 81.5 MCH 23.6 L MCHC 29.0 L RDW 19.2 H Plt Count 246 MPV 9.7 Immature Gran % (Auto) 1.9 H Neut % (Auto) 82.8 H Lymph % (Auto) 6.4 L [place] % (Auto) 8.8 H
--- NOTE | 2022-05-19 17:10 | PM.IMPN ---
Progress Note: A&P Assessment and Plan (1) Influenza: Code(s): J11.1 - Influenza due to unidentified influenza virus with other respiratory manifestations Status: Acute Assessment and Plan: Completed Tamiflu (2) Respiratory failure with hypoxia: Code(s): J96.91 - Respiratory failure, unspecified with hypoxia Status: Acute Assessment and Plan: Multifactorial, secondary to critical aortic valve stenosis, acute on chronic heart failure, moderate pulmonary hypertension, influenza infection as well as possible bacterial pneumonia Stable on room air, home O2 eval pending (3) Atrial fibrillation with rapid ventricular response: Code(s): I48.91 - Unspecified atrial fibrillation Status: Acute Assessment and Plan: Rate controlled (4) Aortic stenosis: Code(s): I35.0 - Nonrheumatic aortic (valve) stenosis Status: Acute Assessment and Plan: Critical aortic valve stenosis (5) Diabetes mellitus: Qualifiers: Diabetes mellitus complication status: without complication Diabetes mellitus jail insulin use: without jail use Diabetes mellitus type: type 2 Qualified Code(s): E11.9 - Type 2 diabetes mellitus without complications Code(s): E11.9 - Type 2 diabetes mellitus without complications Status: Acute Assessment and Plan: Accu-Cheks sliding scale insulin, continue home insulin, suspect hyperglycemia worsened from steroid administration Check A1c (6) Acute on chronic heart failure: Code(s): I50.9 - Heart failure, unspecified Status: Acute Assessment and Plan: Acute exacerbation, unknown whether it is systolic or diastolic, EF 65-70% but likely hyperdynamic from critical aortic valve stenosis as opposed to truly accurate assessment Discontinue IV diuresis, start oral Bumex, monitor potassium and creatinine Cardiology consult appreciated Plan Pertinent history: Recent CVA treated at [place], recent COVID infection, coronary disease with history of stents x2 in 1984 Disposition: PT/OT recommending rehab patient requesting home health care DVT prophylaxis with apixaban GI prophylaxis not indicated Code status full code Subjective Date/time seen: 05/19/22 17:10 Interval history: No overnight events noted. No chest pain or shortness of breath. No nausea, vomiting or diarrhea. No fevers or chills. Patient feels much better and is eager to go home. Stable on room air Review of Systems Review of Systems: All systems reviewed & are unremarkable except as noted in HPI and below Exam Narrative: General: No acute distress, alert and oriented per baseline HEENT: Atraumatic, normocephalic, mucous membranes moist CV: Irregularly irregular, S1, S2 Lungs: Diminished throughout, scattered wheezes Abdomen: Soft, nontender, nondistended Extremities: 2+ pitting edema bilateral lower extremities Skin: No rashes noted, no lesions or wounds seen Psych: Euthymic, normal affect Objective Data Vital Signs Vital Signs: Vital Signs - 24 hr 05/18/22 21:19 05/19/22 00:12 05/18/22 20:00 Temperature 97.6 F Pulse Rate 75 70 71 Respiratory Rate 18 18 Blood Pressure 123/68 Pulse Oximetry 100 Oxygen Delivery Oxygen Flow Rate 05/19/22 00:00 05/19/22 03:42 05/19/22 03:42 Temperature Pulse Rate 68 79 Respiratory Rate 18 Blood Pressure Pulse Oximetry 98 Oxygen Delivery Nasal Cannula Oxygen Flow Rate 1 05/19/22 03:51 05/19/22 05:06 05/19/22 04:00 Temperature 97.3 F L Pulse Rate 81 67 73 Respiratory Rate 18 18 Blood Pressure 133/57 L Pulse Oximetry 97 Oxygen Delivery Oxygen Flow Rate 05/19/22 10:02 05/19/22 10:02 05/19/22 10:28 Temperature Pulse Rate 68 85 Respiratory Rate 20 20 Blood Pressure Pulse Oximetry 94 Oxygen Delivery Room Air Oxygen Flow Rate 05/19/22 08:45 05/19/22 08:45 05/19/22 12:00 Temperature Pulse
[2022-05-19] MEDS: INSULIN ASPART (*BKC) 100 UNITS/ML SUB-Q (17:46)
[2022-05-19] MEDS: POTASSIUM CHLORIDE 20 MEQ PACKET (FOR LIQUID) 40 MEQ PO (17:48)
[2022-05-19] MEDS: INSULIN GLARGINE (*BKC) 100 UNITS/ML 20 UNITS SUB-Q (20:43)
[2022-05-19] MEDS: ESCITALOPRAM OXALATE 10 MG TABLET 20 MG PO (20:43)
[2022-05-19 23:07] LABS: Glucose Point of Care 299 mg/dl (65-105)
[2022-05-20] VITALS (25 sets, daily range): BP systolic 99–128; BP diastolic 58–89; PULSE 60–97; RESP 16–24; TEMP 36.6–37; O2SAT 95–100
--- NOTE | 2022-05-20 | ECHO_ITS ---
Patient Info Name: Robert Brady Age: 82 years : 1940 Gender: Male Ht: 69 in Wt: 189 lbs BSA: 2.06 m2 HR: 75 bpm BP: 124 / 63 mmHg Heart Rhythm: Atrial Fibrillation Technical Quality: Good Exam Date: 05/20/2022 4:42 PM Exam Location: [facility] Pulmonary Exam Room: ICU9 Patient Status: Inpatient Admit Date: 05/10/2022 Staff Ordering Physician: Paul Sullivan MD Patient Care Assistant: Ivette Sommer RDCS Attending Provider: Maxi Montaño MD Exam Type: CA echo limited w bubble study Study Info Indications - cva r/o thrombus Limited two-dimensional transthoracic echocardiogram is performed with agitated saline. Contrast/Agitated Saline Contrast/Ag. Saline: Agitated Saline Amount: 20.00 ml Administered By: Ivette Sommer [facility] Existing IV Access: Yes IV Access Condition: patent with no signs of infiltration Summary 1. Limited study performed in the apical four-chamber view with agitated saline contrast to rule out intracardiac shunt. 2. No evidence of [id number] intracardiac shunting was identified. 3. Normal appearing left ventricular size and systolic function. 4. Normal-appearing mitral valve with mild mitral annular calcium. 5. Full echocardiogram was done on 05/11/2022 and not repeated or requested to be repeated on this exam. Left Ventricle Left ventricular chamber dimension is normal. Left ventricular systolic function is normal, estimated at 55-60%. Right Ventricle Right ventricular chamber dimension is normal. Left Atria Left atrial chamber dimension is mildly enlarged. Right Atria Right atrial chamber dimension is not well visualized. Atrial Septum Intact interatrial septum visualized by agitated saline imaging. Aortic Valve The aortic valve is not well visualized. Pulmonic Valve The pulmonic valve is not well visualized. Mitral Valve The mitral valve has normal leaflets. The mitral valve annulus is mildly calcified. Tricuspid Valve The tricuspid valve leaflets are not well visualized. Pericardium/Pleural The pericardium appears normal. Aorta The aortic root size at the sinus of Valsalva is not well visualized. Report Signatures
[2022-05-20] MEDS: IPRATROPIUM BR 0.02% INH SOLN 0.5 MG/2.5 ML VIAL INHALATION ×7 (01:38→23:37)
[2022-05-20] MEDS: ALBUTEROL SULFATE NEB 2.5 MG/3 ML INH INHALATION ×7 (01:38→23:37)
[2022-05-20 06:21] LABS: Basophils Percent Auto 0.2 % (0.2-1.2); Eosinophils Absolute Auto 0.1 K/mm3 (0-0.3); Eosinophils Percent Auto 0.5 % (0-4.4); Hematocrit 29.4 % (42.0-52.0); Hemoglobin 8.4 g/dL (14.0-18.0); Immature Granulocyte Percent A 2.4 % (0-0.5); Lymphocytes Absolute Auto 1.62 K/mm3 (0.9-3.2); Lymphocytes Percent Auto 12.8 % (18.3-44.2); Mean Corpuscular HGB Conc 28.6 g/dl (32-36); Mean Corpuscular Hemoglobin 23.2 pg (26-34); Mean Corpuscular Volume 81.2 fl (80-100); Mean Platelet Volume 9.9 fl (7.4-10.4); Monocytes Absolute Auto 1.3 K/mm3 (0.1-0.6); Neutrophils Absolute Auto 9.4 K/mm3 (1.3-6.7); Neutrophils Percent Auto 74.1 % (45.5-73.1); Nucleated Red Blood Cells Perc 0.2 % (0.0-0.2); Platelet Count Result 246 k/mm3 (150-375); Red Blood Count 3.62 M/mm3 (4.6-6.20); Red Cell Distribution Width 19.2 % (11.5-14.5); White Blood Count 12.7 K/mm3 (4.5-10.0)
[2022-05-20 06:34] LABS: Alanine Aminotransferase 36 U/L (6-50); Albumin Level 2.9 g/dL (3.5-5.1); Alkaline Phosphatase 152 U/L (38-126); Aspartate Amino Transferase 75 U/L (17-59); Bilirubin,Total 0.6 mg/dL (0.2-1.3); Blood Urea Nitrogen 31 mg/dL (9-20); Calcium 7.9 mg/dL (8.4-10.2); Carbon Dioxide > 40 mmol/L (22-30); Chloride 94 mmol/L (98-107); Estimated CRCL calculation 55 ml/min; Estimated Glomerular Filt Rate > 60; Glucose 80 mg/dL (65-110); Potassium 2.9 mmol/L (3.4-5.0); Sodium 135 mmol/L (137-145)
--- NOTE | 2022-05-20 08:05 | PCOTNOTE ---
Attempted to see patient for OT, patient refused. Patient reports feeling jerked around with d/c plan. Per RN, patient to go to [facility] for rehab and family aware and on board. Patient notified and still unwilling to participate in ADLs or mobility at this time. Will continue plan of care for OT.
[2022-05-20 08:15] LABS: Glucose Point of Care 75 mg/dl (65-105)
[2022-05-20 08:20] LABS: Hypochromasia 1+ (NORMAL); Schistocytes None Seen (NORMAL); Target Cells 1+ (NORMAL)
[2022-05-20 08:22] LABS: Platelet Estimate Adequate (Adequate)
[2022-05-20] MEDS: DORNASE ALFA INH SOLN 1 MG/ML 2.5 ML AMP 2.5 MG INHALATION (08:53)
[2022-05-20] MEDS: FLUTICASONE/SALMETEROL 115-21 MCG INHALER 1 PUFF 2 PUFF INHALATION ×2 (08:53→20:53)
--- NOTE | 2022-05-20 08:56 | PM.DS ---
DS: Admitting Diagnosis Discharge Date May 20, 2022 Admitting Diagnosis Shortness of breath DS: Discharge Diagnosis Discharge Diagnosis (1) Influenza: Code(s): J11.1 - Influenza due to unidentified influenza virus with other respiratory manifestations Status: Acute Assessment and Plan: Completed Tamiflu (2) Respiratory failure with hypoxia: Code(s): J96.91 - Respiratory failure, unspecified with hypoxia Status: Acute Assessment and Plan: Resolved (3) Atrial fibrillation with rapid ventricular response: Code(s): I48.91 - Unspecified atrial fibrillation Status: Acute Assessment and Plan: Rate controlled and anticoagulated (4) Aortic stenosis: Code(s): I35.0 - Nonrheumatic aortic (valve) stenosis Status: Acute Assessment and Plan: Critical, refer for outpatient management (5) Diabetes mellitus: Qualifiers: Diabetes mellitus type: type 2 Diabetes mellitus group home insulin use: without group home use Diabetes mellitus complication status: without complication Qualified Code(s): E11.9 - Type 2 diabetes mellitus without complications Code(s): E11.9 - Type 2 diabetes mellitus without complications Status: Acute Assessment and Plan: A1c is 6.4, continue home management Lantus 20 units nightly (6) Acute on chronic heart failure: Code(s): I50.9 - Heart failure, unspecified Status: Acute Assessment and Plan: Appears to be back to baseline Plan DVT prophylaxis with Eliquis GI prophylaxis with PPI while on prednisone, now discontinued Code status full code DS: Summary Hospital Course Hospital Course: 82-year-old male with past medical history significant for atrial fibrillation, rate controlled anticoagulated, critical aortic stenosis, type 2 diabetes mellitus, benign prostatic hyperplasia, hypertension, patient was recently discharged from outside hospital when home he comes back today due to worsening shortness of breath cough productive of sputum in copious amount of secretion, generalized weakness, poor appetite, chills. patient was brought via EMS he was in severe respiratory distress require supplemental oxygen. He was found to be in acute heart failure, respiratory failure and found to be positive for influenza. He was started on diuresis with IV Lasix and Tamiflu. He was not diuresing adequately and so diuresis was increased to Bumex. Patient had significant response with the Bumex and was able to be weaned to room air, still has significant lower extremity edema but this did improve. Cardiology was consulted for this severe aortic stenosis, patient will need outpatient valve replacement. He was placed on a modest fluid restriction, Paras hose in the recommended avoiding beta blockers and vasodilators. He was rate controlled with his atrial fibrillation and continued on Eliquis. Completed a full course of Tamiflu and was transitioned to oral diuretics. He was also noted to have low potassium and started on a daily potassium supplement. He will need to have his labs checked in a few days to monitor his creatinine and potassium on his oral diuretic. He will also need close outpatient follow-up by Cardiology for his aortic valve. Time Spent with Patient Time attestation: Total time spent providing and/or coordinating discharge services: DS: Data Data Completed and Pending Labs on day of discharge: Labs from last 24 hours 05/20/22 05/20/22 05/20/22 08:10 05:52 05:52 WBC 12.7 H RBC 3.62 L Hgb 8.4 L Hct 29.4 L MCV 81.2 MCH 23.2 L MCHC 28.6 L RDW 19.2 H Plt Count 246 MPV 9.9 Immature Gran % (Auto) 2.4 H Neut % (Auto) 74.1 H Lymph % (Auto) 12.8 L Brewster % (Auto) 10.0 H Eos % (Auto) 0.5 Baso % (Auto) 0.2 Lymph # (Auto) 1.62 Brewster # (Auto) 1.3 H Eos # (Auto) 0.1 Baso # (Auto) 0.0 Abs Immat Gran (auto) 0.30 H Absolute N
[2022-05-20] MEDS: TAMSULOSIN HCL 0.4 MG CAPSULE PO (09:06)
[2022-05-20] MEDS: POTASSIUM CHLORIDE 20 MEQ TABLET 80 MEQ PO (09:06)
[2022-05-20] MEDS: PANTOPRAZOLE 40 MG TABLET PO (09:06)
[2022-05-20] MEDS: ATORVASTATIN 40 MG TABLET 80 MG PO (09:07)
[2022-05-20] MEDS: APIXABAN 5 MG TABLET PO ×2 (09:07→21:20)
[2022-05-20] MEDS: IRBESARTAN 150 MG TABLET PO (09:07)
[2022-05-20] MEDS: SENNA/DOCUSATE SODIUM TABLET 2 TAB PO (09:07)
--- NOTE | 2022-05-20 09:51 | PCRCNOTE ---
Patient planned D/C is SNF. Home O2 evaluation not required as patient can be titrated by jail staff.
[2022-05-20 12:25] LABS: EDCOVIDSCREEN Negative (Negative)
[2022-05-20 12:25] LABS: Glucose Point of Care 118 mg/dl (65-105)
--- NOTE | 2022-05-20 14:22 | WPDCNINT ---
Assessment and Plan Assessment and plan (1) CVA (cerebral vascular accident): Code(s): I63.9 - Cerebral infarction, unspecified Status: Acute Assessment and Plan: Head CT showed 1. No acute intracranial abnormality. 2:? Chronic bilateral lacunar infarctions. 3: Chronic age-related findings. Head neck CTA IMPRESSION: 1. Old infarct involving right frontal lobe and anterior right insula. Chronic encephalomalacia in the bilateral lentiform nuclei. 2. Mild nonspecific cerebral white matter disease, which likely represents chronic small vessel ischemic disease. 3. No aneurysm or significant intracranial arterial sclerosis. 4. Patent stent in right common carotid artery and internal carotid artery with compression of the stent at the carotid bifurcation with moderate stenosis. 5. 8% stenosis of the proximal left internal carotid artery relative to normal distal artery lumen diameter. 6. Mild pulmonary edema with small pleural effusions. Patient had a course to call the floor today and I am not sure of all the symptoms that he was having at that time. But at this time patient does not have any focal motor or sensory deficit. He is not oriented and does have issues with word-finding. As per his son this is new and changed from before. Is always a possibility of PI or a new stroke but patient is not a candidate for tPA due to recent CVA a status post tPA administration last month. I have discussed CTA report a with neurologist and she does not recommend any further intervention at this time but only conservative management. Patient is already on Lipitor Eliquis which will be continued He had a recent echocardiogram on this hospitalization I will check an MRI I have sent images to and spoken to neurologist Dr. Powers at [facility]. He reviewed the images and told me that patient had similar narrowing of his stent on right on the CTA done at [facility] on 04/28. He does not recommend any further intervention or transfer to [facility] at this time. He is in agreement with the current management of statin and Eliquis and obtaining an MRI. (2) Atrial fibrillation: Code(s): I48.91 - Unspecified atrial fibrillation Status: Acute Assessment and Plan: Currently rate controlled without any rate control medication Anticoagulated (3) Acute on chronic heart failure: Code(s): I50.9 - Heart failure, unspecified Status: Acute Assessment and Plan: Since patient received contrast I will hold any diuretics at this time. Patient is on room air although he does have few crackles on exam (4) Aortic stenosis: Code(s): I35.0 - Nonrheumatic aortic (valve) stenosis Status: Acute Assessment and Plan: Critical . 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 Parekh, [facility] neurologist and the recommendations and current treatment plan. I answered all his questions Total Critical Care Time - 90 minutes including coordinating care Due to a high probability of clinically significant, life threatening deterioratio
--- NOTE | 2022-05-20 14:22 | PCPTNOTE ---
The patient treatment was not able to be completed on 05/20/2022 due to patient transferring from 3 medical to ICU/IMU per RN. Will plan to continue treatment per plan of care.
[2022-05-20 14:38] LABS: Glucose Point of Care 105 mg/dl (65-105)
--- NOTE | 2022-05-20 17:25 | PM.IMPN ---
Progress Note: A&P Assessment and Plan (1) CVA (cerebral vascular accident): Code(s): I63.9 - Cerebral infarction, unspecified Status: Acute Assessment and Plan: acute onset of altered mental status earlier today, expressive + receptive aphasia, plus right sided hemineglect Stat CTA head and neck, neuro consult, moved to the ICU, see their consult for details (2) Influenza: Code(s): J11.1 - Influenza due to unidentified influenza virus with other respiratory manifestations Status: Acute Assessment and Plan: Completed Tamiflu (3) Respiratory failure with hypoxia: Code(s): J96.91 - Respiratory failure, unspecified with hypoxia Status: Acute Assessment and Plan: Multifactorial, secondary to critical aortic valve stenosis, acute on chronic heart failure, moderate pulmonary hypertension, influenza infection as well as possible bacterial pneumonia Stable on room air, home O2 eval pending (4) Atrial fibrillation with rapid ventricular response: Code(s): I48.91 - Unspecified atrial fibrillation Status: Acute Assessment and Plan: Rate controlled (5) Aortic stenosis: Code(s): I35.0 - Nonrheumatic aortic (valve) stenosis Status: Acute Assessment and Plan: Critical aortic valve stenosis (6) Diabetes mellitus: Qualifiers: Diabetes mellitus type: type 2 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 mellitus long distance operator insulin use: without assisted use Diabetes mellitus complication status: without complication Qualified Code(s): E11.9 - Type 2 diabetes mellitus without complications Code(s): E11.9 - Type 2 diabetes mellitus without complications Status: Acute Assessment and Plan: Accu-Cheks sliding scale insulin, continue home insulin, suspect hyperglycemia worsened from steroid administration Check A1c (7) Acute on chronic heart failure: Code(s): I50.9 - Heart failure, unspecified Status: Acute Assessment and Plan: Acute exacerbation, unknown whether it is systolic or diastolic, EF 65-70% but likely hyperdynamic from critical aortic valve stenosis as opposed to truly accurate assessment Discontinue IV diuresis, start oral Bumex, monitor potassium and creatinine Cardiology consult appreciated Plan Pertinent history: Recent CVA treated at [place], recent COVID infection, coronary disease with history of stents x2 in 1984 Disposition: PT/OT recommending rehab patient requesting home health care DVT prophylaxis with apixaban GI prophylaxis not indicated Code status full code Subjective Date/time seen: 05/20/22 17:25 Interval history: No overnight events noted. No chest pain or shortness of breath. No nausea, vomiting or diarrhea. No fevers or chills. Acute onset of altered mental status earlier in the day. Stroke alert called, stat CTA ordered. Patient moved to the ICU, see their consult for details. Review of Systems Review of Systems: 12 point review of systems was assessed and was negative except as noted in the HPI Exam Narrative: General: Unable to assess due to expressive aphasia HEENT: Atraumatic, normocephalic, mucous membranes moist CV: Irregularly irregular, S1, S2 Lungs: Clear to auscultation bilaterally, no rales or crackles noted, no wheezes, good air entry Abdomen: Soft, nontender, nondistended Extremities: Normal to inspection Skin: No rashes noted, no lesions or wounds seen Neuro: Cranial nerves 2-12 grossly intact, strength +5/5 upper and lower extremities bilaterally, obvious expressive and receptive aphasia, right-sided adonis-neglect with motor testing, unable to assess visual bautista, could not assess [id number] or heel to kerr, possibly secondary to receptive aphasia Objective Data Vital Signs Vital Signs: Vital Signs - 24 hr 05/19/22 20:10 05/19/22 20:11 05/19/22 20:41 Temperature 97.4 F L Pulse Rate 65 84 Respiratory Rate 20 18 Blood Pressure 119/56 L Pulse Oximetry
[2022-05-20 17:53] LABS: Glucose Point of Care 96 mg/dl (65-105)
[2022-05-20] MEDS: ESCITALOPRAM OXALATE 10 MG TABLET 20 MG PO (21:20)
[2022-05-21] VITALS (15 sets, daily range): BP systolic 126–146; BP diastolic 56–81; PULSE 75–89; RESP 16–30; TEMP 36.5–36.9; O2SAT 84–100
[2022-05-21 00:43] LABS: Glucose Point of Care 83 mg/dl (65-105)
[2022-05-21] MEDS: ALBUTEROL SULFATE NEB 2.5 MG/3 ML INH INHALATION ×3 (03:37→14:19)
[2022-05-21] MEDS: IPRATROPIUM BR 0.02% INH SOLN 0.5 MG/2.5 ML VIAL INHALATION ×3 (03:37→14:19)
[2022-05-21 05:55] LABS: Basophils Percent Auto 0.2 % (0.2-1.2); Eosinophils Absolute Auto 0.1 K/mm3 (0-0.3); Eosinophils Percent Auto 0.6 % (0-4.4); Hematocrit 35.2 % (42.0-52.0); Immature Granulocyte Absolute 0.58 K/mm3 (0.00-0.031); Immature Granulocyte Percent A 3.3 % (0-0.5); Lymphocytes Absolute Auto 1.43 K/mm3 (0.9-3.2); Lymphocytes Percent Auto 8.2 % (18.3-44.2); Mean Corpuscular HGB Conc 28.4 g/dl (32-36); Mean Corpuscular Hemoglobin 23.8 pg (26-34); Mean Corpuscular Volume 83.8 fl (80-100); Mean Platelet Volume 10.5 fl (7.4-10.4); Monocytes Absolute Auto 1.4 K/mm3 (0.1-0.6); Monocytes Percent Auto 7.8 % (2.6-8.5); Neutrophils Percent Auto 79.9 % (45.5-73.1); Nucleated Red Blood Cells Perc 0.2 % (0.0-0.2); Platelet Count Result 309 k/mm3 (150-375); Red Cell Distribution Width 20.2 % (11.5-14.5); White Blood Count 17.5 K/mm3 (4.5-10.0)
[2022-05-21 06:04] LABS: Alanine Aminotransferase 47 U/L (6-50); Albumin Level 3.5 g/dL (3.5-5.1); Alkaline Phosphatase 200 U/L (38-126); Anion Gap 4 mmol/L (8-16); Aspartate Amino Transferase 127 U/L (17-59); Bilirubin,Total 1.2 mg/dL (0.2-1.3); Blood Urea Nitrogen 22 mg/dL (9-20); Calcium 8.5 mg/dL (8.4-10.2); Carbon Dioxide 37 mmol/L (22-30); Chloride 97 mmol/L (98-107); Estimated CRCL calculation 55 ml/min; Estimated Glomerular Filt Rate > 60; Glucose 94 mg/dL (65-110); Potassium 3.9 mmol/L (3.4-5.0); Sodium 138 mmol/L (137-145)
--- NOTE | 2022-05-21 09:32 | PM.PNCARD ---
Progress Note: A&P Assessment and Plan (1) Atrial fibrillation: Code(s): I48.91 - Unspecified atrial fibrillation Status: Acute (2) Aortic stenosis: Code(s): I35.0 - Nonrheumatic aortic (valve) stenosis Status: Acute Plan 82-year-old man with chronic atrial fibrillation and severe aortic stenosis. He has had a hemodynamically stable and systemically anticoagulated. He does not require further cardiac assessment or evaluation here at [facility]. He will follow up with his established canal superintendent after discharge from here according to the patient in the records right and left heart catheterization is being arranged at [facility] as part of his workup as a candidate for TAVR. Patient tells me today that he is not excited about having this procedure done. I told him that he needs to discuss this with the physicians that are evaluating him obviously he needs to consent for this and understand Osiel Traore MD [facility] Subjective Date/time seen: date of service:05/21/22 09:32 Interval history: Follow-up visit in this 82-year-old man with: Chronic persistent atrial fibrillation as well as severe aortic valve stenosis. He receives his care elsewhere and is being worked up as a candidate for TAVR at another hospital. He was seen in consultation by us here at [place] as his physicians are not available. He was admitted with influenza on hypoxemia. Yesterday the plans were for discharge however he became confused apparently altered mental status was concern for an acute stroke and was transferred to the ICU. Evaluation has not shown any evidence of an acute stroke. This morning he appears to be comfortable and he has an appropriate conversation with me. I have not seen him previously but he does not appear to be confused or encephalopathic this morning. Exam Const: General: comfortable and no acute distress Other: Pleasant elderly man supine in bed wearing nasal cannula oxygen watching television offers no complaints currently HENMT: Mouth: Yes moist mucous membranes Eyes: Sclera: sclerae normal Pupils: Equal, round and reactive pupils present Neck: Neck: no JVD Other: patient has transmitted murmur to the carotids bilaterally. Resp: Other: Fine expiratory wheezing noted centrally good air movement no rales Cardio: Rhythm: abnormal rhythm irregularly irregular Other: grade 2 high-pitched systolic crescendo decrescendo murmur audible at the base no diastolic murmur GI: GI Palp: Yes Soft to palpation Auscultation: normal bowel sounds Skin: General skin exam: normal color Extrem: General: normal to inspection Objective Data Vital Signs Vital Signs: Vital Signs - 24 hr 05/20/22 12:52 05/20/22 13:02 05/20/22 13:37 Temperature 36.7 C Pulse Rate 80 80 87 Respiratory Rate 20 20 18 Blood Pressure 123/65 Pulse Oximetry 96 Oxygen Delivery 05/20/22 14:45 05/20/22 15:57 05/20/22 16:00 Temperature 36.7 C 36.7 C Pulse Rate 81 97 Respiratory Rate 19 22 H Blood Pressure 117/58 L 124/63 Pulse Oximetry 95 97 Oxygen Delivery Room Air 05/20/22 16:56 05/20/22 17:11 05/20/22 16:00 Temperature Pulse Rate 79 83 76 Respiratory Rate 22 H 22 H Blood Pressure Pulse Oximetry Oxygen Delivery 05/20/22 18:00 05/20/22 18:00 05/20/22 20:47 Temperature 37.0 C Pulse Rate 85 85 86 Respiratory Rate 23 H 16 Blood Pressure 128/62 Pulse Oximetry 100 96 Oxygen Delivery Room Air 05/20/22 20:47 05/20/22 20:58 05/20/22 20:00 Temperature Pulse Rate 86 74 82 Respiratory Rate 16 18 19 Blood Pressure 99/75 L Pulse Oximetry 95 Oxygen Delivery 05/20/22 22:00 05/20/22 20:00 05/20/22 22:00 Temperature 36.7 C Pulse Rate 89 76 Respiratory Rate 24 H Blood Pressure 116/89 Pulse Oximetry 98 Oxygen Delivery Room Air 05/20/22 20:00 05/20/22 23:38 05/20/22 23:38 Temperature Pulse Rate 83 80 8
[2022-05-21] MEDS: ATORVASTATIN 40 MG TABLET 80 MG PO (09:50)
[2022-05-21] MEDS: TAMSULOSIN HCL 0.4 MG CAPSULE PO (09:50)
[2022-05-21] MEDS: APIXABAN 5 MG TABLET PO ×2 (09:50→22:35)
[2022-05-21] MEDS: IRBESARTAN 150 MG TABLET PO (09:50)
--- NOTE | 2022-05-21 10:10 | WPDINTPN ---
Progress Note: A&P Assessment and Plan (1) CVA (cerebral vascular accident): Code(s): I63.9 - Cerebral infarction, unspecified Status: Acute Assessment and Plan: Head CT showed 1. No acute intracranial abnormality. 2:? Chronic bilateral lacunar infarctions. 3: Chronic age-related findings. Head neck CTA IMPRESSION: 1. Old infarct involving right frontal lobe and anterior right insula. Chronic encephalomalacia in the bilateral lentiform nuclei. 2. Mild nonspecific cerebral white matter disease, which likely represents chronic small vessel ischemic disease. 3. No aneurysm or significant intracranial arterial sclerosis. 4. Patent stent in right common carotid artery and internal carotid artery with compression of the stent at the carotid bifurcation with moderate stenosis. 5. 8% stenosis of the proximal left internal carotid artery relative to normal distal artery lumen diameter. 6. Mild pulmonary edema with small pleural effusions. 05/20 Patient had a course to call the floor today and I am not sure of all the symptoms that he was having at that time. But at this time patient does not have any focal motor or sensory deficit. He is not oriented and does have issues with word-finding. As per his son this is new and changed from before. Is always a possibility of PI or a new stroke but patient is not a candidate for tPA due to recent CVA a status post tPA administration last month. I have discussed CTA report a with neurologist and she does not recommend any further intervention at this time but only conservative management. Patient is already on Lipitor Eliquis which will be continued He had a recent echocardiogram on this hospitalization I will check an MRI I have sent images to and spoken to neurologist Dr. Powers at [facility]. He reviewed the images and told me that patient had similar narrowing of his stent on right on the CTA done at [facility] on 04/28. He does not recommend any further intervention or transfer to [facility] at this time. He is in agreement with the current management of statin and Eliquis and obtaining an MRI. 05/21 No significant change in neuro exam overnight on neuro checks. My exam also is unchanged from yesterday Continue statin, Eliquis MRI has been delayed due to no information about the nature of carotid stents he has. Have requested records from [facility] as Radiology needs that information before they can do MRI (2) Atrial fibrillation: Code(s): I48.91 - Unspecified atrial fibrillation Status: Acute Assessment and Plan: Currently rate controlled without any rate control medication Anticoagulated Cardiology following (3) Acute on chronic heart failure: Code(s): I50.9 - Heart failure, unspecified Status: Acute Assessment and Plan: Since patient received contrast yesterday I will hold any diuretics today and resume from tomorrow. Patient is on room air although he does have few crackles on exam (4) Aortic stenosis: Code(s): I35.0 - Nonrheumatic aortic (valve) stenosis Status: Acute Assessment and Plan: Critical . Needs TAVR He was supposed to follow-up as an outpatient with his concrete finishing machine operator Cardiology following (5) Influenza: Code(s): J11.1 - Influenza due to unidentified influenza virus with other respiratory manifestations Status: Acute Assessment and Plan: Completed course of Tamiflu (6) Diabetes mellitus: Qualifiers: Diabetes mellitus type: type 2 Diabetes mellitus long-term insulin use: without intermodal customer service use Diabetes mellitus complication status: without complication Qualified Code(s): E11.9 - Type 2 diabetes mellitus without complications Code(s): E11.9 - Type 2 diabetes mellitus without complications Status: Acute Assessment and Plan: His blood sugar is borderline overnight as he is NPO. On D5 normal saline at a low rate to prevent hypoglycemia He p
--- NOTE | 2022-05-21 10:10 | PCSTNOTE ---
Please refer to the Bedside Swallow Evaluation in the EMR. Please note, silent aspiration cannot be ruled out at bedside.
--- NOTE | 2022-05-21 10:27 | WPDNEURCNPN ---
Assessment and Plan Assessment and plan (1) CVA (cerebral vascular accident): Code(s): I63.9 - Cerebral infarction, unspecified Status: Acute (2) Atrial fibrillation: Code(s): I48.91 - Unspecified atrial fibrillation Status: Acute (3) Respiratory failure with hypoxia: Code(s): J96.91 - Respiratory failure, unspecified with hypoxia Status: Acute (4) Influenza: Code(s): J11.1 - Influenza due to unidentified influenza virus with other respiratory manifestations Status: Acute Plan Robert Brady is a 82 year old male with a history of atrial fibrillation, rate controlled anticoagulated, critical aortic stenosis, type 2 diabetes mellitus, benign prostatic hyperplasia, hypertension, and recent stroke currently admitted due to respiratory failure. Admission complicated by aphasia and change in mental status. Concern is highest for acute stroke, although stroke recrudescence is also a possibility given underlying respiratory illness. - MRI brain pending - Echo complete - Continue Eliquis 5mg BID and Lipitor 80mg daily - If there is new stroke on MRI brain, will likely have to change his anticoagulation Consult date: 05/21/22 Time Seen: 10:27 Reason for consult: Acute stroke HPI: Robert Brady is a 82 year old male with a history of atrial fibrillation, rate controlled anticoagulated, critical aortic stenosis, type 2 diabetes mellitus, benign prostatic hyperplasia, and hypertension. Patient was admitted to [facility] for acute stroke in April 2022. He received tPA at the time, and his symptoms had resolved. Patient was admitted currently to [facility] for respiratory distress. He was found to be influenza positive as well as acute heart failure. He was treated for both and was stable for discharge yesterday. Yesterday afternoon, patient had an episode of change in mental status with reports of expressive and receptive aphasia as well as possible right sided hemineglect. Code stroke was called. He had a CT head which showed old infarct in the R frontal lobe and anterior right insula as well as chronic encephalomalacia in the bilateral basal ganglia. CTA showed patent stent in the R common carotid artery and ICA with compression of the stent at the carotid bifurcation with moderate stenosis and 8% stenosis of the proximal left ICA. Case was discussed by the ICU with [facility] stroke team and per chart review, patient had similar compression of carotid stent at the time of his stroke in April 2022 that appeared to be unchanged. Patient was not a candidate for tPA due to being on anticoagulation with Eliquis as well as ischemic stroke within the past three months. Patient was transferred to ICU for further care. MRI has not been done yet; more information is needed regarding the carotid stents. Repeat limited echo was done yesterday which was negative for clot or shunt. Patient this morning expressed that his speech is still not at baseline. He feels that he is having trouble remembering certain words. He is not sure why he is in the ICU and does not have much recollection of the events that occurred yesterday. No family at bedside this morning. Review of Systems Constitutional: Constitutional: Reports no additional constitutional complaints Eyes: Eyes: Reports no additional eye complaints ENT: Reports system reviewed and no additional complaints, except as documented Cardiovascular: Cardiovascular: Reports chest pain Respiratory: Respiratory: Reports cough and Reports dyspnea Gastrointestinal: Gastrointestinal: Reports no additional gastrointestinal complaints Genitourinary: Genitourinary: Reports urinary frequency Musculoskeletal: Musculoskeletal: Reports arthralgias Integumentary/Breasts: Skin/Breast: Reports system reviewed and no additional complaints, except as docu Neurologic: Reports as per HPI Psychiatric: Psychiatric: Reports as per HPI and Reports behavioral changes [facility]
[2022-05-21] MEDS: PANTOPRAZOLE SODIUM IV 40 MG VIAL IV PUSH (12:37)
[2022-05-21] MEDS: BUMETANIDE 0.5 MG TABLET PO (12:37)
[2022-05-21 17:06] LABS: Glucose Point of Care 182 mg/dl (65-105)
--- NOTE | 2022-05-21 18:45 | PC.NURSE ---
This patient, Robert Brady, was received from ICU, report taken from Bria, on 05/21/22 at 1852. Patient/family oriented to unit policies and routines
--- NOTE | 2022-05-21 18:45 | PC.NURSE ---
Pt transferred to room 260 via wheelchair. All belongings were transferred with pt. Pt oriented to room and call light system. Report given to PHIL Wilder. All questions were answered.
[2022-05-21] MEDS: SENNA/DOCUSATE SODIUM TABLET 2 TAB PO (18:54)
[2022-05-21] MEDS: ESCITALOPRAM OXALATE 10 MG TABLET 20 MG PO (22:35)
[2022-05-21 22:54] LABS: Glucose Point of Care 172 mg/dl (65-105)
[2022-05-22] VITALS (21 sets, daily range): BP systolic 98–141; BP diastolic 44–68; PULSE 72–97; RESP 16–22; TEMP 36.2–36.6; O2SAT 92–98
[2022-05-22 06:26] LABS: Basophils Percent Auto 0.2 % (0.2-1.2); Eosinophils Absolute Auto 0.2 K/mm3 (0-0.3); Eosinophils Percent Auto 1.3 % (0-4.4); Hematocrit 30.4 % (42.0-52.0); Hemoglobin 8.8 g/dL (14.0-18.0); Immature Granulocyte Absolute 0.47 K/mm3 (0.00-0.031); Immature Granulocyte Percent A 3.3 % (0-0.5); Lymphocytes Absolute Auto 1.23 K/mm3 (0.9-3.2); Lymphocytes Percent Auto 8.6 % (18.3-44.2); Mean Corpuscular HGB Conc 28.9 g/dl (32-36); Mean Corpuscular Volume 83.1 fl (80-100); Mean Platelet Volume 10.4 fl (7.4-10.4); Monocytes Percent Auto 7.2 % (2.6-8.5); Neutrophils Absolute Auto 11.4 K/mm3 (1.3-6.7); Neutrophils Percent Auto 79.4 % (45.5-73.1); Nucleated Red Blood Cells Perc 0.1 % (0.0-0.2); Platelet Count Result 254 k/mm3 (150-375); Red Blood Count 3.66 M/mm3 (4.6-6.20); Red Cell Distribution Width 20.2 % (11.5-14.5); White Blood Count 14.3 K/mm3 (4.5-10.0)
[2022-05-22 06:46] LABS: Alanine Aminotransferase 47 U/L (6-50); Albumin Level 3.1 g/dL (3.5-5.1); Alkaline Phosphatase 218 U/L (38-126); Anion Gap 4 mmol/L (8-16); Aspartate Amino Transferase 102 U/L (17-59); Bilirubin,Total 1.3 mg/dL (0.2-1.3); Blood Urea Nitrogen 24 mg/dL (9-20); Calcium 8.3 mg/dL (8.4-10.2); Carbon Dioxide 33 mmol/L (22-30); Chloride 99 mmol/L (98-107); Estimated CRCL calculation 49 ml/min; Estimated Glomerular Filt Rate > 60; Glucose 152 mg/dL (65-110); Magnesium 1.8 mg/dL (1.6-2.3); Potassium 4.1 mmol/L (3.4-5.0); Sodium 136 mmol/L (137-145)
[2022-05-22 06:56] LABS: Acanthocytes 2+ (NORMAL); Hypochromasia 2+ (NORMAL); Platelet Estimate Adequate (Adequate); Schistocytes Rare (NORMAL)
[2022-05-22 06:57] LABS: Crenated RBC 1+ (NORMAL); Ovalocytes 2+ (NORMAL); Polychromasia 1+ (NORMAL)
[2022-05-22 09:00] LABS: Glucose Point of Care 166 mg/dl (65-105)
[2022-05-22] MEDS: APIXABAN 5 MG TABLET PO ×2 (09:21→20:44)
[2022-05-22] MEDS: PANTOPRAZOLE 40 MG TABLET PO (09:22)
[2022-05-22] MEDS: SENNA/DOCUSATE SODIUM TABLET 2 TAB PO (09:22)
[2022-05-22] MEDS: ALBUTEROL SULFATE NEB 2.5 MG/3 ML INH INHALATION ×5 (09:22→23:29)
[2022-05-22] MEDS: IRBESARTAN 150 MG TABLET PO (09:22)
[2022-05-22] MEDS: TAMSULOSIN HCL 0.4 MG CAPSULE PO (09:22)
[2022-05-22] MEDS: ATORVASTATIN 40 MG TABLET 80 MG PO (09:22)
[2022-05-22] MEDS: IPRATROPIUM BR 0.02% INH SOLN 0.5 MG/2.5 ML VIAL INHALATION ×5 (09:22→23:30)
[2022-05-22] MEDS: BUMETANIDE 0.5 MG TABLET PO (09:22)
[2022-05-22] MEDS: FLUTICASONE/SALMETEROL 115-21 MCG INHALER 1 PUFF 2 PUFF INHALATION ×2 (09:23→20:28)
[2022-05-22 12:24] LABS: Glucose Point of Care 204 mg/dl (65-105)
[2022-05-22] MEDS: INSULIN ASPART (*BKC) 100 UNITS/ML SUB-Q ×2 (12:32→17:45)
--- NOTE | 2022-05-22 13:19 | PM.IMPN ---
Progress Note: A&P Assessment and Plan (1) CVA (cerebral vascular accident): Code(s): I63.9 - Cerebral infarction, unspecified Status: Acute Assessment and Plan: no acute findings per neurology. Patient had a carotid stenosis and had stent placed which shows no new stenosis at the site. Anticoagulation with Eliquis to continue echo results reviewed. MRI reviewed patient's previous carotid procedure were done at [facility] (2) Atrial fibrillation: Code(s): I48.91 - Unspecified atrial fibrillation Status: Acute Assessment and Plan: Currently rate controlled without any rate control medication Anticoagulated Cardiology following (3) Acute on chronic heart failure: Code(s): I50.9 - Heart failure, unspecified Status: Acute Assessment and Plan: Heart failure with reduced ejection fraction. Optimize Diomedes inhibitors and beta-blockers Daily weights Consider SGLT2 inhibitors if okay with Cards Antiplatelet & Statin therapy Loop diuretics as indicate Patient educated about titrating diuretics at home based on weight blood pressure and symptoms. 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 Needs TAVR He was supposed to follow-up as an outpatient with his construction tech (5) Influenza: Code(s): J11.1 - Influenza due to unidentified influenza virus with other respiratory manifestations Status: Acute Assessment and Plan: Completed course of Tamiflu (6) Diabetes mellitus: Qualifiers: Diabetes mellitus type: type 2 Diabetes mellitus lead technical architect insulin use: without lead technical architect use Diabetes mellitus complication status: without complication Qualified Code(s): E11.9 - Type 2 diabetes mellitus without complications Code(s): E11.9 - Type 2 diabetes mellitus without complications Status: Acute Assessment and Plan: HBA1c ( goal <7.0%) , Monitor vitamin B12 levels Optimize DIOMEDES-inhibitor and statin Routine glucose monitoring. Watch for Hypoglycemia. BMI goal < 25 Exercise, Diet ( low salt- low carb) Weight loss (7) Sepsis: Qualifiers: Sepsis acute organ dysfunction status: unspecified Sepsis type: sepsis due to unspecified organism Qualified Code(s): A41.9 - Sepsis, unspecified organism Code(s): A41.9 - Sepsis, unspecified organism Status: Acute Assessment and Plan: IV fluid resuscitation Monitor lactic acid levels Repeat CBC CMP Two sets of Blood cultures urine cultures CXR r/o Pneumonia Monitor albumin' Monitoring of mental status. Steroids suggested if septic shock on his positive fluid resuscitation and vasopressors. IV antibiotics Zosyn Plan DVT prophylaxis -Eliquis Stress ulcer prophylaxis -PPI Nutrition -start diet Code Status - Full Code PT OT Speech therapy Incentive spirometry Up in chair Time Spent With Patient Time with patient: Greater than 35 minutes Subjective Date/time seen: 05/22/22 13:19 Interval history: patient appears comfortable but complains of some weakness Review of Systems Review of Systems: All systems reviewed & are unremarkable except as noted in HPI and below Exam Narrative: GENERAL: Well appearing, well-nourished, non-toxic, in no acute distress. HEAD: Normocephalic, atraumatic. NECK: Supple. No adenopathy, no masses. RESPIRATORY: Airway patent, respirations nonlabored. Clear to auscultation bilaterally, no rales, rhonchi, wheezing. CARDIOVASCULAR: IRRegular rate and rhythm with systolic murmurs,no rubs, or gallops. Peripheral pulses 2+ and equal bilaterally. ABDOMINAL: Soft, nontender, nondistended, no hepatosplenomegaly. Normoactive BS. MUSCULOSKELETAL: no Epigastric and no hypochondrial tenderness SKIN: Warm, dry, normal color. No rashes. NEURO: A&O X3. Moves a
[2022-05-22 14:32] LABS: Hematocrit 29.9 % (42.0-52.0); Hemoglobin 8.6 g/dL (14.0-18.0); Mean Corpuscular HGB Conc 28.8 g/dl (32-36); Mean Corpuscular Hemoglobin 24.1 pg (26-34); Mean Corpuscular Volume 83.8 fl (80-100); Mean Platelet Volume 10.8 fl (7.4-10.4); Platelet Count Result 245 k/mm3 (150-375); Red Blood Count 3.57 M/mm3 (4.6-6.20); Red Cell Distribution Width 20.2 % (11.5-14.5); White Blood Count 14.4 K/mm3 (4.5-10.0)
[2022-05-22 14:47] LABS: Alanine Aminotransferase 42 U/L (6-50); Albumin Level 3.1 g/dL (3.5-5.1); Alkaline Phosphatase 229 U/L (38-126); Anion Gap 5 mmol/L (8-16); Aspartate Amino Transferase 98 U/L (17-59); Bilirubin,Total 1.4 mg/dL (0.2-1.3); Blood Urea Nitrogen 24 mg/dL (9-20); Calcium 7.9 mg/dL (8.4-10.2); Carbon Dioxide 32 mmol/L (22-30); Chloride 99 mmol/L (98-107); Estimated CRCL calculation 49 ml/min; Estimated Glomerular Filt Rate > 60; Glucose 237 mg/dL (65-110); Sodium 136 mmol/L (137-145)
[2022-05-22 15:01] LABS: Hemoglobin A1C 6.5 % (<5.7)
[2022-05-22] MEDS: SODIUM CHLORIDE 0.45% 1,000 ML 80 ML IV CONT (15:54)
[2022-05-22 16:14] LABS: Free T4 Free Thyroxine Reflex 1.36 ng/dL (0.78-2.19)
[2022-05-22 16:55] LABS: Total Triiodothyronine (T3) 0.93 NG/ML (0.97-1.69)
[2022-05-22 17:37] LABS: Glucose Point of Care 207 mg/dl (65-105)
[2022-05-22] MEDS: ESCITALOPRAM OXALATE 10 MG TABLET 20 MG PO (20:43)
[2022-05-22] MEDS: MELATONIN 5 MG TABLET PO (20:43)
[2022-05-22 20:59] LABS: Glucose Point of Care 165 mg/dl (65-105)
[2022-05-23] VITALS (18 sets, daily range): BP systolic 102–113; BP diastolic 50–60; PULSE 52–88; RESP 18–20; TEMP 36.2–36.6; O2SAT 94–100
[2022-05-23] MEDS: ALBUTEROL SULFATE NEB 2.5 MG/3 ML INH INHALATION ×4 (03:10→20:25)
[2022-05-23] MEDS: IPRATROPIUM BR 0.02% INH SOLN 0.5 MG/2.5 ML VIAL INHALATION ×4 (03:10→20:25)
[2022-05-23] MEDS: SODIUM CHLORIDE 0.45% 1,000 ML 80 ML IV CONT ×2 (04:44→18:01)
[2022-05-23 05:42] LABS: Basophils Percent Auto 0.2 % (0.2-1.2); Eosinophils Absolute Auto 0.2 K/mm3 (0-0.3); Eosinophils Percent Auto 1.7 % (0-4.4); Hematocrit 26.3 % (42.0-52.0); Hemoglobin 7.6 g/dL (14.0-18.0); Immature Granulocyte Absolute 0.52 K/mm3 (0.00-0.031); Immature Granulocyte Percent A 4.4 % (0-0.5); Lymphocytes Percent Auto 10.1 % (18.3-44.2); Mean Corpuscular HGB Conc 28.9 g/dl (32-36); Mean Corpuscular Hemoglobin 23.6 pg (26-34); Mean Corpuscular Volume 81.7 fl (80-100); Monocytes Absolute Auto 0.9 K/mm3 (0.1-0.6); Monocytes Percent Auto 7.2 % (2.6-8.5); Neutrophils Absolute Auto 9.1 K/mm3 (1.3-6.7); Neutrophils Percent Auto 76.4 % (45.5-73.1); Nucleated Red Blood Cells Perc 0.2 % (0.0-0.2); Platelet Count Result 210 k/mm3 (150-375); Red Blood Count 3.22 M/mm3 (4.6-6.20); White Blood Count 11.9 K/mm3 (4.5-10.0)
[2022-05-23 06:01] LABS: Alanine Aminotransferase 33 U/L (6-50); Albumin Level 2.7 g/dL (3.5-5.1); Alkaline Phosphatase 171 U/L (38-126); Anion Gap 1 mmol/L (8-16); Anisocytosis 1+ (NORMAL); Aspartate Amino Transferase 74 U/L (17-59); Bilirubin,Total 1.1 mg/dL (0.2-1.3); Blood Urea Nitrogen 22 mg/dL (9-20); Calcium 7.5 mg/dL (8.4-10.2); Carbon Dioxide 32 mmol/L (22-30); Chloride 98 mmol/L (98-107); Estimated CRCL calculation 49 ml/min; Estimated Glomerular Filt Rate > 60; Glucose 155 mg/dL (65-110); Hypochromasia 1+ (NORMAL); Magnesium 1.8 mg/dL (1.6-2.3); Platelet Estimate Adequate (Adequate); Potassium 3.7 mmol/L (3.4-5.0); Sodium 131 mmol/L (137-145)
[2022-05-23 08:45] LABS: Glucose Point of Care 161 mg/dl (65-105)
[2022-05-23] MEDS: TAMSULOSIN HCL 0.4 MG CAPSULE PO (08:59)
[2022-05-23] MEDS: APIXABAN 5 MG TABLET PO ×2 (08:59→22:02)
[2022-05-23] MEDS: IRBESARTAN 150 MG TABLET PO (08:59)
[2022-05-23] MEDS: ATORVASTATIN 40 MG TABLET 80 MG PO (08:59)
[2022-05-23] MEDS: PANTOPRAZOLE 40 MG TABLET PO (08:59)
[2022-05-23] MEDS: SENNA/DOCUSATE SODIUM TABLET 2 TAB PO (08:59)
[2022-05-23] MEDS: BUMETANIDE 0.5 MG TABLET PO (09:00)
--- NOTE | 2022-05-23 11:14 | PCRCNOTE ---
Window of time for administration has passed. See next scheduled administration.
[2022-05-23 12:05] LABS: Glucose Point of Care 211 mg/dl (65-105)
[2022-05-23] MEDS: INSULIN ASPART (*BKC) 100 UNITS/ML SUB-Q (12:11)
--- NOTE | 2022-05-23 12:13 | PM.IMPN ---
Progress Note: A&P Assessment and Plan (1) CVA (cerebral vascular accident): Code(s): I63.9 - Cerebral infarction, unspecified Status: Acute Assessment and Plan: no acute findings per neurology. Patient had a carotid stenosis and had stent placed which shows no new stenosis at the site. Anticoagulation with Eliquis to continue echo results reviewed. MRI reviewed patient's previous carotid procedure were done at [facility] (2) Atrial fibrillation: Code(s): I48.91 - Unspecified atrial fibrillation Status: Acute Assessment and Plan: Currently rate controlled without any rate control medication Anticoagulated Cardiology following (3) Acute on chronic heart failure: Code(s): I50.9 - Heart failure, unspecified Status: Acute Assessment and Plan: Heart failure with reduced ejection fraction. Optimize Diomedes inhibitors and beta-blockers Daily weights Consider SGLT2 inhibitors if okay with Cards Antiplatelet & Statin therapy Loop diuretics as indicate Patient educated about titrating diuretics at home based on weight blood pressure and symptoms. 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 Needs TAVR He was supposed to follow-up as an outpatient with his poultry dresser (5) Influenza: Code(s): J11.1 - Influenza due to unidentified influenza virus with other respiratory manifestations Status: Acute Assessment and Plan: Completed course of Tamiflu (6) Diabetes mellitus: Qualifiers: Diabetes mellitus type: type 2 Diabetes mellitus intermediate accountant insulin use: without intermediate accountant use Diabetes mellitus complication status: without complication Qualified Code(s): E11.9 - Type 2 diabetes mellitus without complications Code(s): E11.9 - Type 2 diabetes mellitus without complications Status: Acute Assessment and Plan: HBA1c ( goal <7.0%) , Monitor vitamin B12 levels Optimize DIOMEDES-inhibitor and statin Routine glucose monitoring. Watch for Hypoglycemia. BMI goal < 25 Exercise, Diet ( low salt- low carb) Weight loss (7) Sepsis: Qualifiers: Sepsis acute organ dysfunction status: unspecified Sepsis type: sepsis due to unspecified organism Qualified Code(s): A41.9 - Sepsis, unspecified organism Code(s): A41.9 - Sepsis, unspecified organism Status: Acute Assessment and Plan: IV fluid resuscitation Monitor lactic acid levels Repeat CBC CMP Two sets of Blood cultures urine cultures pending CXR r/o Pneumonia is negative Monitor albumin' Monitoring of mental status. Steroids suggested if septic shock on his positive fluid resuscitation and vasopressors. IV antibiotics Zosyn (8) Acute blood loss anemia: Code(s): D62 - Acute posthemorrhagic anemia Status: Acute Assessment and Plan: no source of GI bleed noted. Will get stool for occult blood as patient is on Eliquis. Initial hemoglobin was 8.4 on 05/20 current hemoglobin is 7.6, previous study showed patient has iron deficiency anemia continue with iron replacement and Mvi monitor hemoglobin and hematocrit Plan DVT prophylaxis -Eliquis Stress ulcer prophylaxis -PPI Nutrition -start diet Code Status - Full Code PT OT Speech therapy Incentive spirometry Up in chair Time Spent With Patient Time with patient: Greater than 35 minutes Subjective Date/time seen: 05/23/22 12:13 Interval history: patient appears comfortable but complains of some weakness Review of Systems Review of Systems: All systems reviewed & are unremarkable except as noted in HPI and below Exam Narrative: GENERAL: Well appearing, well-nourished, non-toxic, in no acute distress. HEAD: Normocephalic, atraumatic. NECK: Supple. No adenopathy, no masses. RESPIRATORY: Airw
[2022-05-23 16:50] LABS: Glucose Point of Care 155 mg/dl (65-105)
[2022-05-23] MEDS: FLUTICASONE/SALMETEROL 115-21 MCG INHALER 1 PUFF 2 PUFF INHALATION (20:26)
[2022-05-23] MEDS: ESCITALOPRAM OXALATE 10 MG TABLET 20 MG PO (22:02)
[2022-05-24] VITALS (24 sets, daily range): BP systolic 115–125; BP diastolic 41–58; PULSE 63–87; RESP 18–20; TEMP 36.1–36.5; O2SAT 96–100
[2022-05-24 00:40] LABS: Glucose Point of Care 179 mg/dl (65-105)
[2022-05-24] MEDS: IPRATROPIUM BR 0.02% INH SOLN 0.5 MG/2.5 ML VIAL INHALATION ×7 (01:56→23:42)
[2022-05-24] MEDS: ALBUTEROL SULFATE NEB 2.5 MG/3 ML INH INHALATION ×7 (01:56→23:42)
[2022-05-24 05:31] LABS: Basophils Percent Auto 0.2 % (0.2-1.2); Eosinophils Absolute Auto 0.2 K/mm3 (0-0.3); Eosinophils Percent Auto 1.5 % (0-4.4); Hematocrit 27.1 % (42.0-52.0); Hemoglobin 7.8 g/dL (14.0-18.0); Immature Granulocyte Absolute 0.57 K/mm3 (0.00-0.031); Immature Granulocyte Percent A 4.5 % (0-0.5); Lymphocytes Percent Auto 8.7 % (18.3-44.2); Mean Corpuscular HGB Conc 28.8 g/dl (32-36); Mean Corpuscular Hemoglobin 23.8 pg (26-34); Mean Corpuscular Volume 82.6 fl (80-100); Mean Platelet Volume 10.4 fl (7.4-10.4); Monocytes Absolute Auto 0.9 K/mm3 (0.1-0.6); Monocytes Percent Auto 7.1 % (2.6-8.5); Neutrophils Absolute Auto 9.8 K/mm3 (1.3-6.7); Nucleated Red Blood Cells Perc 0.2 % (0.0-0.2); Platelet Count Result 206 k/mm3 (150-375); Red Blood Count 3.28 M/mm3 (4.6-6.20); Red Cell Distribution Width 20.6 % (11.5-14.5); White Blood Count 12.6 K/mm3 (4.5-10.0)
[2022-05-24 06:00] LABS: Anisocytosis 1+ (NORMAL); Hypochromasia 1+ (NORMAL); Microcytosis 1+ (NORMAL); Platelet Estimate Adequate (Adequate); Poikilocytosis 1+ (NORMAL)
[2022-05-24 06:01] LABS: Acanthocytes 1+ (NORMAL); Alanine Aminotransferase 33 U/L (6-50); Albumin Level 2.8 g/dL (3.5-5.1); Alkaline Phosphatase 198 U/L (38-126); Anion Gap 3 mmol/L (8-16); Aspartate Amino Transferase 91 U/L (17-59); Bilirubin,Total 1.1 mg/dL (0.2-1.3); Blood Urea Nitrogen 16 mg/dL (9-20); Burr Cells 1+ (NORMAL); Calcium 7.9 mg/dL (8.4-10.2); Carbon Dioxide 30 mmol/L (22-30); Chloride 101 mmol/L (98-107); Estimated CRCL calculation 49 ml/min; Estimated Glomerular Filt Rate > 60; Glucose 136 mg/dL (65-110); Magnesium 1.7 mg/dL (1.6-2.3); Potassium 3.8 mmol/L (3.4-5.0); Schistocytes 1+ (NORMAL); Sodium 134 mmol/L (137-145)
[2022-05-24] MEDS: SODIUM CHLORIDE 0.45% 1,000 ML 80 ML IV CONT ×2 (07:26→20:57)
--- NOTE | 2022-05-24 07:50 | PCNWS ---
Weekly nutritional screen. Patient is tolerating current diet with adequate intake. No weight loss reported. No nutritional needs at this time.
[2022-05-24] MEDS: FLUTICASONE/SALMETEROL 115-21 MCG INHALER 1 PUFF 2 PUFF INHALATION ×2 (08:01→21:08)
[2022-05-24 09:20] LABS: Glucose Point of Care 149 mg/dl (65-105)
--- NOTE | 2022-05-24 10:17 | PM.IMPN ---
Progress Note: A&P Assessment and Plan (1) CVA (cerebral vascular accident): Code(s): I63.9 - Cerebral infarction, unspecified Status: Acute Assessment and Plan: no acute findings per neurology. Patient had a carotid stenosis and had stent placed which shows no new stenosis at the site. Anticoagulation with Eliquis to continue echo results reviewed. MRI reviewed patient's previous carotid procedure were done at [facility] (2) Atrial fibrillation: Code(s): I48.91 - Unspecified atrial fibrillation Status: Acute Assessment and Plan: Currently rate controlled without any rate control medication Anticoagulated Cardiology following (3) Acute on chronic heart failure: Code(s): I50.9 - Heart failure, unspecified Status: Acute Assessment and Plan: Heart failure with reduced ejection fraction. Optimize Diomedes inhibitors and beta-blockers Optimize blood pressure < 130/80 advertising director (4) Aortic stenosis: Code(s): I35.0 - Nonrheumatic aortic (valve) stenosis Status: Acute Assessment and Plan: Critical . Needs TAVR He was supposed to follow-up as an outpatient with his advertising director (5) Influenza: Code(s): J11.1 - Influenza due to unidentified influenza virus with other respiratory manifestations Status: Acute Assessment and Plan: Completed course of Tamiflu (6) Diabetes mellitus: Qualifiers: Diabetes mellitus type: type 2 Diabetes mellitus intermediate accountant insulin use: without fpc use Diabetes mellitus complication status: without complication Qualified Code(s): E11.9 - Type 2 diabetes mellitus without complications Code(s): E11.9 - Type 2 diabetes mellitus without complications Status: Acute Assessment and Plan: HBA1c ( goal <7.0%) , Monitor vitamin B12 levels Optimize DIOMEDES-inhibitor and statin Routine glucose monitoring. Watch for Hypoglycemia. BMI goal < 25 Exercise, Diet ( low salt- low carb) Weight loss (7) Sepsis: Qualifiers: Sepsis acute organ dysfunction status: unspecified Sepsis type: sepsis due to unspecified organism Qualified Code(s): A41.9 - Sepsis, unspecified organism Code(s): A41.9 - Sepsis, unspecified organism Status: Acute Assessment and Plan: IV fluid resuscitation Monitor lactic acid levels Repeat CBC CMP Two sets of Blood cultures urine cultures pending CXR r/o Pneumonia is negative IV antibiotics Zosyn (8) Acute blood loss anemia: Code(s): D62 - Acute posthemorrhagic anemia Status: Acute Assessment and Plan: no source of GI bleed noted. stool for occult blood is positive as patient is on Eliquis. Initial hemoglobin was 8.4 on 05/20 current hemoglobin is 7.8, previous study showed patient has iron deficiency anemia continue with iron replacement and Mvi monitor hemoglobin and hematocrit Plan DVT prophylaxis -Eliquis Stress ulcer prophylaxis -PPI Nutrition -start diet Code Status - Full Code PT OT Speech therapy Incentive spirometry Up in chair Time Spent With Patient Time with patient: Greater than 35 minutes Subjective Date/time seen: 05/24/22 10:17 Interval history: patient doing well no chest pain or shortness of breath very anxious to go home Review of Systems Review of Systems: All systems reviewed & are unremarkable except as noted in HPI and below Exam Narrative: GENERAL: Well appearing, well-nourished, non-toxic, in no acute distress. HEAD: Normocephalic, atraumatic. NECK: Supple. No adenopathy, no masses. RESPIRATORY: Airway patent, respirations nonlabored. Clear to auscultation bilaterally, no rales, rhonchi, wheezing. CARDIOVASCULAR: IRRegular rate and rhythm with systolic murmurs,no rubs, or gallops. Peripheral pulses 2+ and equal bilaterally. ABDOMINAL: Soft, nontender, nondistended, no hepatosplenomegaly. Normoactive BS. MUSCULOSKELETAL: no Epigastric and n
[2022-05-24] MEDS: PANTOPRAZOLE 40 MG TABLET PO (10:45)
[2022-05-24] MEDS: ATORVASTATIN 40 MG TABLET 80 MG PO (10:45)
[2022-05-24] MEDS: SENNA/DOCUSATE SODIUM TABLET 2 TAB PO ×2 (10:45→17:35)
[2022-05-24] MEDS: APIXABAN 5 MG TABLET PO ×2 (10:45→20:56)
[2022-05-24] MEDS: MULTIVIT W/ IRON, MINERALS 15 ML LIQUID (*BKC) PO (10:46)
[2022-05-24] MEDS: IRBESARTAN 150 MG TABLET PO (10:46)
[2022-05-24] MEDS: TAMSULOSIN HCL 0.4 MG CAPSULE PO (10:46)
[2022-05-24] MEDS: BUMETANIDE 0.5 MG TABLET PO (10:47)
[2022-05-24 12:33] LABS: Glucose Point of Care 233 mg/dl (65-105)
[2022-05-24] MEDS: INSULIN ASPART (*BKC) 100 UNITS/ML SUB-Q (12:58)
[2022-05-24 17:09] LABS: Glucose Point of Care 135 mg/dl (65-105)
[2022-05-24] MEDS: ESCITALOPRAM OXALATE 10 MG TABLET 20 MG PO (20:56)
[2022-05-24 21:24] LABS: Glucose Point of Care 230 mg/dl (65-105)
[2022-05-25] VITALS (19 sets, daily range): BP systolic 100–147; BP diastolic 40–66; PULSE 62–92; RESP 14–22; TEMP 36.4–36.5; O2SAT 95–100
[2022-05-25] MEDS: IPRATROPIUM BR 0.02% INH SOLN 0.5 MG/2.5 ML VIAL INHALATION ×4 (04:59→20:51)
[2022-05-25] MEDS: ALBUTEROL SULFATE NEB 2.5 MG/3 ML INH INHALATION ×4 (04:59→20:52)
[2022-05-25 06:12] LABS: Basophils Percent Auto 0.2 % (0.2-1.2); Eosinophils Absolute Auto 0.1 K/mm3 (0-0.3); Eosinophils Percent Auto 1.1 % (0-4.4); Hematocrit 28.6 % (42.0-52.0); Hemoglobin 8.3 g/dL (14.0-18.0); Immature Granulocyte Percent A 3.8 % (0-0.5); Lymphocytes Absolute Auto 1.18 K/mm3 (0.9-3.2); Mean Corpuscular Hemoglobin 23.6 pg (26-34); Mean Corpuscular Volume 81.3 fl (80-100); Monocytes Absolute Auto 0.9 K/mm3 (0.1-0.6); Neutrophils Absolute Auto 10.4 K/mm3 (1.3-6.7); Neutrophils Percent Auto 78.9 % (45.5-73.1); Nucleated Red Blood Cells Perc 0.2 % (0.0-0.2); Platelet Count Result 215 k/mm3 (150-375); Red Blood Count 3.52 M/mm3 (4.6-6.20); Red Cell Distribution Width 20.9 % (11.5-14.5); White Blood Count 13.1 K/mm3 (4.5-10.0)
[2022-05-25 06:18] LABS: Alanine Aminotransferase 34 U/L (6-50); Albumin Level 3.3 g/dL (3.5-5.1); Alkaline Phosphatase 216 U/L (38-126); Anion Gap 7 mmol/L (8-16); Aspartate Amino Transferase 99 U/L (17-59); Blood Urea Nitrogen 12 mg/dL (9-20); Calcium 8.4 mg/dL (8.4-10.2); Carbon Dioxide 26 mmol/L (22-30); Chloride 98 mmol/L (98-107); Estimated CRCL calculation 55 ml/min; Estimated Glomerular Filt Rate > 60; Glucose 162 mg/dL (65-110); Magnesium 1.6 mg/dL (1.6-2.3); Potassium 3.9 mmol/L (3.4-5.0); Sodium 131 mmol/L (137-145)
[2022-05-25 07:19] LABS: Platelet Estimate Adequate (Adequate)
[2022-05-25 07:20] LABS: Anisocytosis 1+ (NORMAL); Burr Cells 1+ (NORMAL); Hypochromasia 1+ (NORMAL); Ovalocytes 1+ (NORMAL); Polychromasia 1+ (NORMAL); Schistocytes None Seen (NORMAL)
[2022-05-25 08:18] LABS: Glucose Point of Care 161 mg/dl (65-105)
[2022-05-25] MEDS: FLUTICASONE/SALMETEROL 115-21 MCG INHALER 1 PUFF 2 PUFF INHALATION ×2 (09:44→20:52)
[2022-05-25] MEDS: PANTOPRAZOLE 40 MG TABLET PO (09:45)
[2022-05-25] MEDS: SENNA/DOCUSATE SODIUM TABLET 2 TAB PO ×2 (09:45→17:50)
[2022-05-25] MEDS: BUMETANIDE 0.5 MG TABLET PO (09:45)
[2022-05-25] MEDS: TAMSULOSIN HCL 0.4 MG CAPSULE PO (09:45)
[2022-05-25] MEDS: IRBESARTAN 150 MG TABLET PO (09:45)
[2022-05-25] MEDS: MULTIVIT W/ IRON, MINERALS 15 ML LIQUID (*BKC) PO (09:45)
[2022-05-25] MEDS: ATORVASTATIN 40 MG TABLET 80 MG PO (09:45)
[2022-05-25] MEDS: APIXABAN 5 MG TABLET PO ×2 (09:45→21:18)
[2022-05-25] MEDS: SODIUM CHLORIDE 0.45% 1,000 ML 80 ML IV CONT (09:48)
[2022-05-25] MEDS: ACETAMINOPHEN 325 MG TABLET 650 MG PO ×2 (10:00→18:53)
[2022-05-25 13:23] LABS: Glucose Point of Care 211 mg/dl (65-105)
[2022-05-25] MEDS: INSULIN ASPART (*BKC) 100 UNITS/ML SUB-Q (13:24)
--- NOTE | 2022-05-25 15:52 | PM.IMPN ---
Progress Note: A&P Assessment and Plan (1) Urinary tract infection due to Enterococcus: Code(s): N39.0 - Urinary tract infection, site not specified; B95.2 - Enterococcus as the cause of diseases classified elsewhere Status: Acute Assessment and Plan: Enterococcus and coagulase negative staph growing with sensitivities pending. Continue zosyn for now. (2) Sepsis: Qualifiers: Sepsis acute organ dysfunction status: unspecified Sepsis type: sepsis due to unspecified organism Qualified Code(s): A41.9 - Sepsis, unspecified organism Code(s): A41.9 - Sepsis, unspecified organism Status: Acute Assessment and Plan: 1/2 BCX with staphylococcus epidermis and the urine culture is also growing coagulase negative staphylococcus in addition to enterococcus. Leukocytosis is worsening. Patient has remained afebrile and feels better. 05/20 echo with no valvular lesions noted but it was not a ONEAL. Will monitor. -Continue zosyn for now -Repeat blood cultures -May need to add vancomycin (3) CVA (cerebral vascular accident): Code(s): I63.9 - Cerebral infarction, unspecified Status: Acute Assessment and Plan: no acute findings per neurology. Patient had a carotid stenosis and had stent placed which shows no new stenosis at the site. Anticoagulation with Eliquis to continue echo results reviewed. MRI reviewed patient's previous carotid procedure were done at [facility] (4) Atrial fibrillation: Code(s): I48.91 - Unspecified atrial fibrillation Status: Acute Assessment and Plan: Currently rate controlled without any rate control medication. Anticoagulated. Cardiology was consulted and made no additional recommendations. (5) Acute on chronic heart failure: Code(s): I50.9 - Heart failure, unspecified Status: Acute Assessment and Plan: Heart failure with reduced ejection fraction. Optimize Diomedes inhibitors and beta-blockers Optimize blood pressure < 130/80 resident intern (6) Aortic stenosis: Code(s): I35.0 - Nonrheumatic aortic (valve) stenosis Status: Acute Assessment and Plan: Critical . Needs TAVR He was supposed to follow-up as an outpatient with his resident intern (7) Influenza: Code(s): J11.1 - Influenza due to unidentified influenza virus with other respiratory manifestations Status: Acute Assessment and Plan: Completed course of Tamiflu (8) Diabetes mellitus: Qualifiers: Diabetes mellitus type: type 2 Diabetes mellitus extermination supervisor insulin use: without extermination supervisor use Diabetes mellitus complication status: without complication Qualified Code(s): E11.9 - Type 2 diabetes mellitus without complications Code(s): E11.9 - Type 2 diabetes mellitus without complications Status: Acute Assessment and Plan: HBA1c ( goal <7.0%) , Monitor vitamin B12 levels Optimize DIOMEDES-inhibitor and statin Routine glucose monitoring. Watch for Hypoglycemia. BMI goal < 25 Exercise, Diet ( low salt- low carb) Weight loss (9) Acute blood loss anemia: Code(s): D62 - Acute posthemorrhagic anemia Status: Acute Assessment and Plan: no source of GI bleed noted. stool for occult blood is positive as patient is on Eliquis. Initial hemoglobin was 8.4 on 05/20 current hemoglobin is 7.8, previous study showed patient has iron deficiency anemia continue with iron replacement and Mvi monitor hemoglobin and hematocrit -Will need outpatient follow up with primary care physician -05/26/22 - hemoglobin has remained stable. Will monitor. Subjective Date/time seen: 05/25/22 14:52 Patient says he has a cough bothering him. He says he has some shortness of breath when moving around. Discussed culture results with patient and pending sensitivities. Review of Systems Respiratory: Respiratory: Reports cough and Reports dyspnea on exert
[2022-05-25 17:18] LABS: Glucose Point of Care 190 mg/dl (65-105)
[2022-05-25] MEDS: ESCITALOPRAM OXALATE 10 MG TABLET 20 MG PO (21:18)
[2022-05-26] VITALS (13 sets, daily range): BP systolic 108–129; BP diastolic 43–88; PULSE 67–77; RESP 16–18; TEMP 36.3–36.6; O2SAT 95–100
[2022-05-26 00:13] LABS: Glucose Point of Care 186 mg/dl (65-105)
[2022-05-26] MEDS: ALBUTEROL SULFATE NEB 2.5 MG/3 ML INH INHALATION ×3 (01:31→21:21)
[2022-05-26] MEDS: IPRATROPIUM BR 0.02% INH SOLN 0.5 MG/2.5 ML VIAL INHALATION ×3 (01:31→21:20)
[2022-05-26 05:52] LABS: Basophils Percent Auto 0.2 % (0.2-1.2); Eosinophils Absolute Auto 0.2 K/mm3 (0-0.3); Eosinophils Percent Auto 1.4 % (0-4.4); Hematocrit 27.1 % (42.0-52.0); Hemoglobin 7.8 g/dL (14.0-18.0); Immature Granulocyte Absolute 0.27 K/mm3 (0.00-0.031); Immature Granulocyte Percent A 2.6 % (0-0.5); Lymphocytes Absolute Auto 1.16 K/mm3 (0.9-3.2); Mean Corpuscular HGB Conc 28.8 g/dl (32-36); Mean Corpuscular Hemoglobin 23.6 pg (26-34); Mean Corpuscular Volume 82.1 fl (80-100); Mean Platelet Volume 9.8 fl (7.4-10.4); Monocytes Absolute Auto 0.9 K/mm3 (0.1-0.6); Monocytes Percent Auto 8.1 % (2.6-8.5); Neutrophils Absolute Auto 8.1 K/mm3 (1.3-6.7); Neutrophils Percent Auto 76.7 % (45.5-73.1); Nucleated Red Blood Cells Perc 0.3 % (0.0-0.2); Platelet Count Result 198 k/mm3 (150-375); Red Cell Distribution Width 21.1 % (11.5-14.5); White Blood Count 10.6 K/mm3 (4.5-10.0)
[2022-05-26 05:58] LABS: Alanine Aminotransferase 33 U/L (6-50); Albumin Level 3.1 g/dL (3.5-5.1); Alkaline Phosphatase 195 U/L (38-126); Anion Gap 4 mmol/L (8-16); Aspartate Amino Transferase 91 U/L (17-59); Bilirubin,Total 0.8 mg/dL (0.2-1.3); Blood Urea Nitrogen 10 mg/dL (9-20); Calcium 8.6 mg/dL (8.4-10.2); Carbon Dioxide 29 mmol/L (22-30); Chloride 99 mmol/L (98-107); Estimated CRCL calculation 49 ml/min; Estimated Glomerular Filt Rate > 60; Glucose 143 mg/dL (65-110); Magnesium 1.7 mg/dL (1.6-2.3); Potassium 3.5 mmol/L (3.4-5.0); Sodium 132 mmol/L (137-145)
[2022-05-26 06:04] LABS: NT Pro B Type Natriuretic Pept 2470 pg/mL (5-100)
[2022-05-26 08:25] LABS: Glucose Point of Care 148 mg/dl (65-105)
[2022-05-26] MEDS: SENNA/DOCUSATE SODIUM TABLET 2 TAB PO ×2 (08:47→17:23)
[2022-05-26] MEDS: PANTOPRAZOLE 40 MG TABLET PO (08:48)
[2022-05-26] MEDS: IRBESARTAN 150 MG TABLET PO (08:48)
[2022-05-26] MEDS: APIXABAN 5 MG TABLET PO ×2 (08:48→20:50)
[2022-05-26] MEDS: ATORVASTATIN 40 MG TABLET 80 MG PO (08:48)
[2022-05-26] MEDS: MULTIVIT W/ IRON, MINERALS 15 ML LIQUID (*BKC) PO (08:48)
[2022-05-26] MEDS: BUMETANIDE 0.5 MG TABLET PO (08:48)
[2022-05-26] MEDS: TAMSULOSIN HCL 0.4 MG CAPSULE PO (08:48)
[2022-05-26 10:01] LABS: Hypochromasia 1+ (NORMAL); Platelet Estimate Adequate (Adequate)
[2022-05-26 10:02] LABS: Acanthocytes 1+ (NORMAL); Anisocytosis 1+ (NORMAL); Burr Cells 1+ (NORMAL); Ovalocytes 1+ (NORMAL); Poikilocytosis 1+ (NORMAL)
[2022-05-26 10:12] LABS: Schistocytes None Seen (NORMAL)
--- NOTE | 2022-05-26 10:45 | PM.IMPN ---
Progress Note: A&P Assessment and Plan (1) Urinary tract infection due to Enterococcus: Code(s): N39.0 - Urinary tract infection, site not specified; B95.2 - Enterococcus as the cause of diseases classified elsewhere Status: Acute Assessment and Plan: Enterococcus and coagulase negative staph growing with sensitivities pending. Continue zosyn for now. (2) Sepsis: Qualifiers: Sepsis acute organ dysfunction status: unspecified Sepsis type: sepsis due to unspecified organism Qualified Code(s): A41.9 - Sepsis, unspecified organism Code(s): A41.9 - Sepsis, unspecified organism Status: Acute Assessment and Plan: 1/ BCX with staphylococcus epidermis sensitive to tetracycline and the urine culture is also growing coagulase negative staphylococcus in addition to enterococcus with both organisms sensitive to nitrofurantoin Patient has remained afebrile and feels better. 05/20 echo with no valvular lesions noted but it was not a ONEAL. 05/26 cultures with no growth. Leukocytosis improved this morning but zosyn is not listed as senstive for any of the organisms in urine or blood. Called microbiology lab who will test against zosyn and send report. Also lab reports that enterococcus is sensitive to tetracycline and will update the report in the EMR as well. If all cultures sensitive to tetracyclines, patient may be able to be discharged tomorrow on oral doxycycline for 7 days for coverage for possible bacteremia as well as completion of treatment for urinary tract infection. -Zosyn started 05/22. Will continue. -Awaiting updated sensitivities for piperacillin-tazobactam (3) CVA (cerebral vascular accident): Code(s): I63.9 - Cerebral infarction, unspecified Status: Acute Assessment and Plan: No acute findings per neurology. Patient had a carotid stenosis and had stent placed which shows no new stenosis at the site. Anticoagulation with apixaban. echo results reviewed. MRI reviewed patient's previous carotid procedure were done at [facility] (4) Atrial fibrillation: Code(s): I48.91 - Unspecified atrial fibrillation Status: Acute Assessment and Plan: Currently rate controlled without any rate control medication. Anticoagulated. Cardiology was consulted and made no additional recommendations. (5) Acute on chronic heart failure: Code(s): I50.9 - Heart failure, unspecified Status: Acute Assessment and Plan: Heart failure with reduced ejection fraction. 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 Needs TAVR He was supposed to follow-up as an outpatient with his cosmetology teacher (7) Influenza: Code(s): J11.1 - Influenza due to unidentified influenza virus with other respiratory manifestations Status: Acute Assessment and Plan: Completed course of Tamiflu (8) Diabetes mellitus: Qualifiers: Diabetes mellitus type: type 2 Diabetes mellitus halfway insulin use: without halfway use Diabetes mellitus complication status: without complication Qualified Code(s): E11.9 - Type 2 diabetes mellitus without complications Code(s): E11.9 - Type 2 diabetes mellitus without complications Status: Acute Assessment and Plan: Glargine 20 units hs SSI insulin POC Glucose (9) Acute blood loss anemia: Code(s): D62 - Acute posthemorrhagic anemia Status: Acute Assessment and Plan: no source of GI bleed noted. stool for occult blood is positive as patient is on Eliquis. Initial hemoglobin was 8.4 on 05/20 current hemoglobin is 7.8, previous study showed patient has iron deficiency anemia continue with iron replacement and Mvi monitor hemoglobin and hematocrit -Will n
[2022-05-26 12:04] LABS: Glucose Point of Care 202 mg/dl (65-105)
[2022-05-26] MEDS: FLUTICASONE/SALMETEROL 115-21 MCG INHALER 1 PUFF 2 PUFF INHALATION ×2 (12:08→21:21)
[2022-05-26 13:05] LABS: Glucose Point of Care 161 mg/dl (65-105)
[2022-05-26 17:17] LABS: Glucose Point of Care 218 mg/dl (65-105)
[2022-05-26] MEDS: INSULIN ASPART (*BKC) 100 UNITS/ML SUB-Q (17:23)
[2022-05-26] MEDS: ESCITALOPRAM OXALATE 10 MG TABLET 20 MG PO (20:50)
[2022-05-26 22:16] LABS: Glucose Point of Care 145 mg/dl (65-105)
[2022-05-27] VITALS (8 sets, daily range): BP systolic 118–125; BP diastolic 60–62; PULSE 70–77; RESP 18–20; TEMP 36.4–36.5; O2SAT 93–99
[2022-05-27] MEDS: IPRATROPIUM BR 0.02% INH SOLN 0.5 MG/2.5 ML VIAL INHALATION ×3 (03:21→11:44)
[2022-05-27] MEDS: ALBUTEROL SULFATE NEB 2.5 MG/3 ML INH INHALATION ×3 (03:21→11:44)
[2022-05-27 07:06] LABS: Basophils Percent Auto 0.2 % (0.2-1.2); Eosinophils Absolute Auto 0.1 K/mm3 (0-0.3); Eosinophils Percent Auto 1.1 % (0-4.4); Hematocrit 26.7 % (42.0-52.0); Hemoglobin 7.7 g/dL (14.0-18.0); Immature Granulocyte Absolute 0.25 K/mm3 (0.00-0.031); Immature Granulocyte Percent A 2.2 % (0-0.5); Lymphocytes Absolute Auto 0.97 K/mm3 (0.9-3.2); Lymphocytes Percent Auto 8.7 % (18.3-44.2); Mean Corpuscular HGB Conc 28.8 g/dl (32-36); Mean Corpuscular Hemoglobin 23.6 pg (26-34); Mean Corpuscular Volume 81.9 fl (80-100); Monocytes Percent Auto 8.5 % (2.6-8.5); Neutrophils Absolute Auto 8.8 K/mm3 (1.3-6.7); Neutrophils Percent Auto 79.3 % (45.5-73.1); Nucleated Red Blood Cells Perc 0.2 % (0.0-0.2); Platelet Count Result 177 k/mm3 (150-375); Red Blood Count 3.26 M/mm3 (4.6-6.20); Red Cell Distribution Width 21.2 % (11.5-14.5); White Blood Count 11.1 K/mm3 (4.5-10.0)
[2022-05-27 07:19] LABS: Alanine Aminotransferase 32 U/L (6-50); Albumin Level 2.9 g/dL (3.5-5.1); Alkaline Phosphatase 198 U/L (38-126); Anion Gap 4 mmol/L (8-16); Aspartate Amino Transferase 91 U/L (17-59); Bilirubin,Total 0.9 mg/dL (0.2-1.3); Blood Urea Nitrogen 13 mg/dL (9-20); Calcium 8.6 mg/dL (8.4-10.2); Carbon Dioxide 29 mmol/L (22-30); Chloride 103 mmol/L (98-107); Estimated CRCL calculation 49 ml/min; Estimated Glomerular Filt Rate > 60; Glucose 146 mg/dL (65-110); Potassium 3.7 mmol/L (3.4-5.0); Sodium 136 mmol/L (137-145)
[2022-05-27 07:51] LABS: IFOB Positive Control Positive; Immunochemical Fecal Occult Bl Negative (N)
[2022-05-27 08:21] LABS: Platelet Estimate Adequate (Adequate)
[2022-05-27 08:22] LABS: Anisocytosis 1+ (NORMAL); Burr Cells 1+ (NORMAL); Poikilocytosis 1+ (NORMAL); Schistocytes None Seen (NORMAL)
[2022-05-27 08:23] LABS: Hypochromasia 1+ (NORMAL); Ovalocytes 1+ (NORMAL); Polychromasia 1+ (NORMAL)
[2022-05-27] MEDS: FLUTICASONE/SALMETEROL 115-21 MCG INHALER 1 PUFF 2 PUFF INHALATION (09:01)
[2022-05-27] MEDS: APIXABAN 5 MG TABLET PO (09:21)
[2022-05-27] MEDS: IRBESARTAN 150 MG TABLET PO (09:21)
[2022-05-27] MEDS: BUMETANIDE 0.5 MG TABLET PO (09:21)
[2022-05-27] MEDS: AMOXICILLIN 500 MG CAPSULE PO ×2 (09:21→14:45)
[2022-05-27] MEDS: ATORVASTATIN 40 MG TABLET 80 MG PO (09:21)
[2022-05-27] MEDS: PANTOPRAZOLE 40 MG TABLET PO (09:21)
[2022-05-27] MEDS: SENNA/DOCUSATE SODIUM TABLET 2 TAB PO (09:22)
[2022-05-27] MEDS: TAMSULOSIN HCL 0.4 MG CAPSULE PO (09:22)
[2022-05-27] MEDS: DOXYCYCLINE 100 MG/NS 100 ML 100 MG/100 ML BAG IVPB (10:29)
[2022-05-27 12:11] LABS: Glucose Point of Care 169 mg/dl (65-105)
--- NOTE | 2022-05-27 13:32 | PM.DS ---
DS: Admitting Diagnosis Discharge Date 05/27/22 Admitting Diagnosis Acute Hypoxemic Respiratory Failure DS: Discharge Diagnosis Discharge Diagnosis (1) Sepsis: Qualifiers: Sepsis acute organ dysfunction status: unspecified Sepsis type: sepsis due to unspecified organism Qualified Code(s): A41.9 - Sepsis, unspecified organism Code(s): A41.9 - Sepsis, unspecified organism Status: Acute Assessment and Plan: / BCX with staphylococcus epidermis sensitive to tetracycline and the urine culture is also growing coagulase negative staphylococcus in addition to enterococcus with both organisms sensitive to nitrofurantoin Patient has remained afebrile and feels better. 05/20 echo with no valvular lesions noted but it was not a ONEAL. 05/26 cultures with no growth. Leukocytosis improved this morning but zosyn is not listed as sensitive for any of the organisms in urine or blood. Called microbiology lab who will test against zosyn and send report. Also lab reports that enterococcus is sensitive to tetracycline and will update the report in the EMR as well. Enterococcus is resistant to tetracycline. Coagulase negative staphylococcus from urine and staphylococcus epidermis from the blood are both sensitive to tetracycline, so doxycycline was started this morning. Case discussed with infectious disease pharmacist who recommended amoxicillin for the enterococcus in the urine. Repeat blood cultures from 05/25 have no growth at the time of discharge. -Zosyn discontinued -Amoxicillin 500 mg q8h for 7 days -Doxycycline 100 mg BID for 7 days (2) Urinary tract infection due to Enterococcus: Code(s): N39.0 - Urinary tract infection, site not specified; B95.2 - Enterococcus as the cause of diseases classified elsewhere Status: Acute Assessment and Plan: Enterococcus and coagulase negative staph growing with sensitivities to tetracycline for the coagulase negative staphylococcus and tetracycline resistance for the enterococcus. See plan as noted above. (3) CVA (cerebral vascular accident): Code(s): I63.9 - Cerebral infarction, unspecified Status: Acute Assessment and Plan: Patient had prior stroke and was treated with carotid stent at [facility]. Patient had code stroke on 05/20/22. There was no new stroke but it was noted compression of the stent at the carotid bifurcation with moderate stenosis. Neurology was consulted and [facility] Neurology reviewed the case. [facility] neurology did not recommend any intervention or transfer. -Continue apixaban -Continue atorvastatin (4) Atrial fibrillation: Code(s): I48.91 - Unspecified atrial fibrillation Status: Acute Assessment and Plan: Currently rate controlled without any rate control medication. Anticoagulated. Cardiology was consulted and made no additional recommendations. (5) Acute on chronic heart failure: Code(s): I50.9 - Heart failure, unspecified Status: Acute Assessment and Plan: Heart failure with reduced ejection fraction. 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 Needs TAVR. Will need to follow up outpatient with his established Lead Front Desk Agent for workup and management. (7) Influenza: Code(s): J11.1 - Influenza due to unidentified influenza virus with other respiratory manifestations Status: Acute Assessment and Plan: Completed course of Tamiflu. 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
[2022-05-27 15:33] LABS: EDCOVIDSCREEN Negative (Negative)
== END 2022-05-27 17:03 | DRG 193 ==
LOC: ANHED 23:13 → ANH3MED 05-11 00:26 → ANHICU 05-20 14:40 → ANH2MED 05-21 18:49
PROVIDERS: Internal Medicine; Student in an Organized Health Care Education/Training Program; Admitting Provider Internal Medicine; Emergency Provider Nurse Practitioner Family; PCP Internal Medicine; Visit Provider Family Medicine
DX: J10.1 Influenza due to other identified influenza virus with other respiratory manifestations (principal); A41.1 Sepsis due to other specified staphylococcus; J96.01 Acute respiratory failure with hypoxia; N39.0 Urinary tract infection, site not specified; E87.20 Acidosis, unspecified; R47.01 Aphasia; T82.898A Other specified complication of vascular prosthetic devices, implants and grafts, initial encounter; R41.0 Disorientation, unspecified; I50.9 Heart failure, unspecified; B95.2 Enterococcus as the cause of diseases classified elsewhere; B95.7 Other staphylococcus as the cause of diseases classified elsewhere; I11.0 Hypertensive heart disease with heart failure; Z20.822 Contact with and (suspected) exposure to COVID-19; I48.91 Unspecified atrial fibrillation; I35.0 Nonrheumatic aortic (valve) stenosis; E78.5 Hyperlipidemia, unspecified; J44.9 Chronic obstructive pulmonary disease, unspecified; N40.0 Benign prostatic hyperplasia without lower urinary tract symptoms; E11.9 Type 2 diabetes mellitus without complications; E87.6 Hypokalemia; I25.10 Atherosclerotic heart disease of native coronary artery without angina pectoris; D64.9 Anemia, unspecified; D50.9 Iron deficiency anemia, unspecified; Z96.652 Presence of left artificial knee joint; Z86.73 Personal history of transient ischemic attack (TIA), and cerebral infarction without residual deficits; I25.2 Old myocardial infarction; Z98.42 Cataract extraction status, left eye; Z98.41 Cataract extraction status, right eye; Z95.5 Presence of coronary angioplasty implant and graft; Z87.891 Personal history of nicotine dependence; Z79.01 Long term (current) use of anticoagulants; Z79.84 Long term (current) use of oral hypoglycemic drugs; Z86.16 Personal history of COVID-19
CPT/HCPCS: 36415; 70450; 70496; 70498; 71045; 71046; 71275; 73502; 80053; 82274; 82550; 82948; 83036; 83605; 83735; 83880; 84439; 84443; 84480; 84484; 85025; 85027; 86738; 87040; 87070; 87077; 87086; 87088; 87186; 87205; 87426; 87449; 87636; 87899; 92610; 93308; 93970; 94640; 96375; 97110; 97112; 97116; 97161; 97165; 97168; 97530; 97535; 99285; A9270; C8929; C9113; C9803; J0456; J0696; J1815; J1940; J2543; J2920; J7512; Q9957; Q9967

== ENCOUNTER 2022-06-13 15:36 | Inpatient (IN) | payer MEDICARE, SELFPAY ==
[2022-06-13] VITALS (7 sets, daily range): BP systolic 100–126; BP diastolic 48–86; PULSE 64–79; RESP 14–22; TEMP 36.4; O2SAT 95–100; BMI 24.5
--- NOTE | ~2022-06-13 | XR_ITS ---
EXAM: XR hip RT 2V w AP pelvis DATE: 06/13/2022 16:21 HISTORY: fall, right hip pain . COMPARISON: 05/26/2022. FINDINGS: Normal mineralization. No fracture or dislocation. No lytic or blastic lesion. Moderate bi lateral hip osteoarthritis. No erosion or periosteal change. Degenerative changes in the lower lumbar spine. Vascular calcifications. IMPRESSION: No acute osseous finding in the right hip or pelvis. Reviewed, dictated and finalized at location K. PREVENTION INSPECTOR
--- NOTE | ~2022-06-13 | CT_ITS ---
EXAMINATION: CT cervical spine wo con DATE: 06/13/2022 16:33 INDICATION: fall TECHNIQUE: Computed tomography (CT) of the cervical spine was performed without intravenous contrast. Automated exposure control and iterative reconstruction technique were employed. The dose-length pro duct was 485.97 mGy-cm. COMPARISON: CTA brain carotid 05/20/2022. FINDINGS: Vertebral Body Alignment: Intact. Reversed lordosis centered at C4-5. Craniocervical and atlantoaxial alignment: Moderate degenerative change. Alignment intact. Osseous structures/fracture: No evidence of a lytic or blastic process in the visualized spine. No e vidence of acute fracture. . Cervical soft tissues: The paraspinal soft tissues planes are maintained. 1 cm right thyroid lobe hyp odensity which requires no additional workup. Bilateral carotid bifurcation calcifications. Azygos lo be. Biapical pleural scarring. Scattered tree-in-bud and centrilobular opacities. Degenerative changes: Interbody fusion at C3-4. Facet fusion on the right at C3-4 and on the left at C3-4 and C4-5. Multilevel facet arthropathy. Multilevel mild and moderate degrees of neural foraminal narrowing. Moderate central canal stenosis at C4-5. IMPRESSION: No acute fracture or traumatic malalignment in the cervical spine. Pulmonary opacities may represent chronic bronchiolitis and/or atypical infection in the appropriate clinical context. Reviewed, dictated and finalized at location K. UTER REPAIR ENGINEER IMPRESSION: No acute fracture or traumatic malalignment in the cervical spine. Pulmonary op acities may represent chronic bronchiolitis and/or atypical infection in the ap propriate clinical context.
--- NOTE | ~2022-06-13 | CT_ITS ---
EXAMINATION: CT lumbar spine wo con DATE: 06/13/2022 16:34 INDICATION: back pain . TECHNIQUE: Computed tomography (CT) of the lumbar spine was performed without intravenous contrast. A utomated exposure control and iterative reconstruction technique were employed. The dose-length produ ct was 636.82 mGy-cm. COMPARISON: CT chest abdomen and pelvis 06/20/2020. FINDINGS: Diverticulosis. Extensive atherosclerotic abdominal aortic calcification, with small multif ocal saccular aneurysms. Right midpole renal cyst. Nonobstructing left upper pole renal calcification . Multiple nodular opacities in the peritoneal fat likely representing lymph nodes. Lumbar scoliosis. 5 nonrib-bearing lumbar-type vertebral bodies. Pedicles intact. Normal vertebral body alignment. Sreedhar tebral body heights preserved. Severe degenerative disc disease at all lumbar levels. Multilevel face t arthropathy, severe at L5-S1. Multilevel moderate neural foraminal narrowing. Moderate central nancy l stenosis at L2-3 and L4-5. IMPRESSION: No acute fracture or traumatic malalignment in the lumbar spine. Likely mesenteric lymphadenopathy. Reviewed, dictated and finalized at location K. TURNER MACHINE OPERATOR IMPRESSION: No acute fracture or traumatic malalignment in the lumbar spine. Likely mesente avtar lymphadenopathy.
--- NOTE | ~2022-06-13 | CT_ITS ---
EXAMINATION: CT chest abdomen pelvis wo con DATE: 06/20/2022 08:42 INDICATION: Hypercalcemia TECHNIQUE: Transaxial computed tomographic images of the chest, abdomen, and pelvis were obtained wit hout intravenous contrast. The dose-length product (DLP) was 1036.19 mGy-cm. Automated exposure contr ol and iterative reconstruction technique were employed. COMPARISON: 05/11/2022, 06/20/2020 FINDINGS: CHEST CT: Motion artifact limits evaluation of the chest. There are moderate-sized pleural effusions. There are patchy airspace opacities with an upper lobe predominance. No pneumothorax is identified. Calcified pulmonary nodules and calcified bilateral hilar and subcarinal lymph nodes are consistent with old gr anulomatous disease. There is a 3.7 x 3.1 cm mass in the right axilla. The heart size is normal. Ther e is calcified coronary artery atherosclerosis. There is moderate thoracic spondylosis. ABDOMEN/PELVIS CT: Punctate calcifications in otherwise normal appearing liver and spleen likely represent healed granul omatous disease. The gallbladder is surgically absent. Evaluation of the pancreas is limited without intravenous contrast. There are masses in or abutting the body of the pancreas. The adrenal glands ar e normal. There is retroperitoneal lymphadenopathy in the upper abdomen. There is a 4 mm nonobstructi ng stone of the left kidney upper pole. The right kidney is unremarkable. There is calcified atherosc lerosis of the aorta and many of the other arteries. Colonic diverticulosis is present without eviden ce of diverticulitis. There is no free intraperitoneal gas or evidence of bowel obstruction. There ar e widespread, small peritoneal implants throughout the abdomen and pelvis. There is a 10 mm left butt ock soft tissue mass (image 191). There is severe lumbar spondylosis. There is a lytic lesion of the right ilium with a permeative pattern and healing pathologic fracture as evidenced by adjacent perios teal reaction. IMPRESSION: 1. 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 2. Moderate-sized pleural effusions. 3. Patchy airspace opacities with an upper lobe predominance, consistent with multifocal pneumonia. Reviewed, dictated and finalized at location B. ING MANAGER IMPRESSION: 1. 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 2. Moderate-sized pleural effusions. 3. Patchy airspace opacities with an upper lobe predominance, consistent with m ultifocal pneumonia.
--- NOTE | ~2022-06-13 | CT_ITS ---
EXAMINATION: CT brain wo con DATE: 06/13/2022 16:33 INDICATION: head injury . TECHNIQUE: Computed tomography (CT) of the head was performed without intravenous contrast. The mA wa s adjusted according to patient size. Iterative reconstruction technique was employed. The dose-lengt h product was 681.00 mGy-cm. COMPARISON: 05/20/2022. FINDINGS: No acute intracranial hemorrhage or extra-axial fluid collection. No hydrocephalus, mass, or herniation. No acute ischemic infarct. Unremarkable dural venous sinus attenuation. No acute osseous abnormality. Anterior nasal polyp, the remaining aerated spaces are clear. Moderate atrophy and mild chronic white matter change. Atherosclerotic intracranial calcification. Ri ght periventricular encephalomalacia. Bilateral old lacunar infarcts. Bilateral lens replacements. IMPRESSION: No acute intracranial process. Reviewed, dictated and finalized at location K. R CHANGES RECORDS CLERK
--- NOTE | ~2022-06-13 | US_ITS ---
Limited Abdominal Sonogram: Real-time sonographic imaging of the right upper quadrant was performed. Clinical History: Abnormal LFTs Findings: The liver appears normal with no evidence of mass lesion or bile duct dilatation. Main por susana vein demonstrates normal direction of flow. The gallbladder is absent, compatible prior cholecyst ectomy. The common bile duct measures 8 mm. The visualized pancreas, aorta, and IVC are unremarkable . Minimal ascites present. Impression: Minimal ascites. Reviewed, dictated and finalized at location M. E OPENER Impression: Minimal ascites.
--- NOTE | ~2022-06-13 | XR_ITS ---
EXAMINATION: XR abdomen obstructive series DATE: 06/19/2022 08:31 INDICATION: Constipation TECHNIQUE: Supine and upright views of the abdomen. FINDINGS: No prior studies for comparison. The visualized lung parenchyma is normal.. There is a nonobstructive bowel gas pattern. Gas and stool are seen throughout the colon to the level of the rectum. There is no free air. There are vascular calcifications in the upper abdomen. There are cholecystectomy clips. There is severe lumbar spondylo sis. IMPRESSION: 1. No acute abdominal abnormality. Reviewed, dictated and finalized at location A. 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
--- NOTE | ~2022-06-13 | XR_ITS ---
XR bone survey comp/metastic 06/17/2022 19:40 Indication: Hypercalcemia Procedure: Bone survey performed. 30 images of the skull, spine, pelvis and appendicular skeleton Comparison: No prior studies for comparison. Findings: There is atherosclerosis. Normal mineralization. There is mild-moderate polyarticular osteo arthritis. There is a left knee arthroplasty. There is severe lumbar spondylosis. There is atheroscle rosis of the aorta. Mild thoracic spondylosis. There is evidence for chronic granulomatous disease in the mediastinum and bilateral lungs. There is a vascular stent in the right neck. No focal lytic or blastic lesions. Impression: 1: No focal lytic or blastic lesions to suggest metastatic disease or myeloma. 2: Mild-moderate polyarticular osteoarthritis. Reviewed, dictated and finalized at location A. TER MACHINE Impression: 1: No focal lytic or blastic lesions to suggest metastatic disease or myeloma. 2: Mild-moderate polyarticular osteoarthritis.
--- NOTE | ~2022-06-13 | CT_ITS ---
EXAMINATION: CT brain wo con DATE: 06/17/2022 18:33 INDICATION: Confusion. TECHNIQUE: Computed tomography (CT) of the head was performed without intravenous contrast. The dose- length product was 681.00 mGy-cm. Automated exposure control and iterative reconstruction technique w ere employed. COMPARISON: CT dated 06/13/2022 FINDINGS: There are chronic bilateral lacunar infarctions. There are scattered mild periventricular a nd subcortical white matter changes, most likely related to small vessel ischemic disease (microangio jacek). No ventriculomegaly or midline shift. Generalized atrophy. There is a chronic periventricular infarction of the right frontal lobe. No acute intracranial hemorrhage, infarction, mass or mass eff ect. There is mild mucosal thickening of the sinuses. Mastoids are pneumatized. No depressed skull fr actures. IMPRESSION: 1. No acute intracranial abnormality. 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 3: Chronic age-related findings. Reviewed, dictated and finalized at location A. ORTER
--- NOTE | ~2022-06-13 | XR_ITS ---
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 RESULT: Lines, tubes, and devices: Cholecystectomy clips. Lungs and pleura: No focal consolidation, large effusion, or pneumothorax. Innumerable bilateral tray cified pulmonary nodules. Calcified hilar nodes. Senescent change. Cardiomediastinal silhouette: Stable. Other: No acute osseous or upper abdominal finding. IMPRESSION: No acute cardiopulmonary process. Reviewed, dictated and finalized at location K. OR ENVIRONMENTAL ENGINEER
--- NOTE | 2022-06-13 16:00 | ECG_ITS ---
Measurements Intervals [place] Rate: 69 P: IN: 0 QRS: 49 QRSD: 109 T: 52 QT: 365 QTc: 392 Interpretive Statements ATRIAL FLUTTER/TACHYCARDIA BORDERLINE ST-T WAVE ABNORMALITY- INF/LAT LEADS BASELINE ARTIFACT- I, II, III, V6 ABNORMAL ECG COMPARED TO ECG 10/16/2021 12:52:18 STT-WAVE ABNORMALITY NOW PRESENT Electronically Signed On 06-13-2022 18:37:36 TAPE MAKER by Chip Saavedra D.O.
--- NOTE | 2022-06-13 16:07 | ED.GENADULT ---
HPI - General Adult General Chief complaint: Weakness Stated complaint: fall last noc Time Seen by Provider: 06/13/22 15:51 Source: patient, EMS, RN notes reviewed and old records reviewed Mode of arrival: EMS Limitations: dementia History of Present Illness HPI narrative: This is an 82 year old male who presents from long-term for evaluation of frequent falls, lethargy and increased confusion. It is reported that he has increased weakness over past couple of weeks. HE has fallen multiple times in past 2 days. HE last fell last night and it is reports he has increased confusion more than normal. Patient is complaining of back pain and right hip that has been present since last hospitalization. Patient denies headache, neck pain, chest pain, nausea or vomiting. He takes eliquis. HE is oriented to person and age. It is unclear if he hit his head. Related Data Home Medications Medication Instructions Recorded Confirmed atorvastatin 80 mg tablet (Lipitor) 80 mg PO DAILY 03/04/20 05/11/22 ezetimibe 10 mg tablet (Zetia) 10 mg PO DAILY 03/04/20 05/11/22 tamsulosin 0.4 mg capsule 0.4 mg PO DAILY 03/04/20 05/11/22 metformin 500 mg tablet,extended 500 mg PO BID 06/20/20 05/11/22 release 24 hr escitalopram oxalate 10 mg tablet 20 mg PO HS 08/12/21 05/11/22 albuterol sulfate 90 mcg/actuation 1 puff inhalation Q4-6H PRN 05/10/22 05/11/22 aerosol inhaler Shortness Of Breath Or Wheezing apixaban 5 mg tablet (Eliquis) 5 mg PO BID 05/11/22 05/11/22 budesonide-formoterol HFA 160 2 puff inhalation Q12H 05/11/22 05/11/22 mcg-4.5 mcg/actuation aerosol inhaler irbesartan 150 mg tablet 150 mg PO DAILY 05/11/22 05/11/22 pantoprazole 40 mg tablet,delayed 40 mg PO QAM 05/11/22 05/11/22 release Allergies Allergy/AdvReac Type Severity Reaction Status Date / Time No Known Allergies Allergy Unknown Unknown Verified 05/10/22 20:09 Review of Systems Constitutional: Constitutional: Reports fatigue and Reports weakness Cardiovascular: Cardiovascular: Denies syncope, Denies rapid heart rate, Denies irregular heart rhythm, Denies leg edema and Denies dyspnea Respiratory: Respiratory: Denies chest congestion, Denies hemoptysis, Denies excessive phlegm production and Denies dyspnea Gastrointestinal: Gastrointestinal: Denies abdominal pain, Denies hematochezia, Denies diarrhea and Denies vomiting Genitourinary: Genitourinary: Denies hematuria, Denies dysuria, Denies penile discharge and Denies testicular pain Musculoskeletal: Musculoskeletal: Reports back pain, Reports arthralgias, Denies joint swelling, Denies loss of height and Denies muscle weakness Neurologic: Denies syncope, Denies focal weakness and Denies weakness [facility] Past Medical History Medical History Acute blood loss anemia Aortic stenosis BPH (benign prostatic hyperplasia) Carotid stenosis Depression Diabetes mellitus Hemoglobin A1c of 8.5 Erosive esophagitis Essential hypertension Hearing loss Hiatal hernia History of heart attack Hyperlipidemia Stricture intestinal Surgical History Surgical History History of bilateral cataract extraction Approximately 2009 History of coronary artery stent placement 1994 History of laparoscopic cholecystectomy History of right common carotid artery stent placement History of total left knee replacement Status post dilatation of esophageal stricture Family History Family History Mother Cerebrovascular accident Social History Social History Social History: The patient and his have been for the last 55 years. They have 3 adult sons who are in good health. He is a former smoker quit smoking about 25 years ago. He used to drink heavily in his youth but has not drank heavily in the last sever
[2022-06-13 17:06] LABS: Add Urine Microscopic? YES; Appearance Urine Clear (Clear); Bilirubin Urine 2+ (Negative); Blood Urine Negative (Negative); Color Urine Yellow (Yellow); Glucose Urine UA Negative (Negative); Ketones Urine Trace mg/dL (Negative); Leukocyte Esterase Ur Negative LEU/UL (Negative); Nitrate Urine Negative (Negative); Protein Urine Trace mg/dL (Negative); Specific Grav Ur >= 1.030 (1.001-1.035); Urobilinogen Urine 0.2 mg/dL (<2.0)
[2022-06-13 17:07] LABS: Basophils Percent Auto 0.4 % (0.2-1.2); Eosinophils Absolute Auto 0.1 K/mm3 (0-0.3); Eosinophils Percent Auto 1.5 % (0-4.4); Hematocrit 28.2 % (42.0-52.0); Hemoglobin 8.4 g/dL (14.0-18.0); Immature Granulocyte Percent A 1.4 % (0-0.5); Lymphocytes Absolute Auto 1.67 K/mm3 (0.9-3.2); Lymphocytes Percent Auto 22.7 % (18.3-44.2); Mean Corpuscular HGB Conc 29.8 g/dl (32-36); Mean Corpuscular Hemoglobin 23.9 pg (26-34); Mean Corpuscular Volume 80.1 fl (80-100); Mean Platelet Volume 9.9 fl (7.4-10.4); Monocytes Percent Auto 13.9 % (2.6-8.5); Neutrophils Absolute Auto 4.4 K/mm3 (1.3-6.7); Neutrophils Percent Auto 60.1 % (45.5-73.1); Nucleated Red Blood Cells Perc 0.3 % (0.0-0.2); Platelet Count Result 314 k/mm3 (150-375); Red Blood Count 3.52 M/mm3 (4.6-6.20); Red Cell Distribution Width 21.5 % (11.5-14.5); White Blood Count 7.4 K/mm3 (4.5-10.0)
[2022-06-13 17:13] LABS: Lactic Acid Reflex 1.4 mmol/L (0.7-2.0)
[2022-06-13 17:14] LABS: Alanine Aminotransferase 46 U/L (6-50); Albumin Level 3.1 g/dL (3.5-5.1); Alkaline Phosphatase 276 U/L (38-126); Anion Gap 3 mmol/L (8-16); Aspartate Amino Transferase 228 U/L (17-59); Bilirubin,Total 1.1 mg/dL (0.2-1.3); Blood Urea Nitrogen 39 mg/dL (9-20); Calcium 10.8 mg/dL (8.4-10.2); Carbon Dioxide 33 mmol/L (22-30); Chloride 95 mmol/L (98-107); Estimated CRCL calculation 26 ml/min; Estimated Glomerular Filt Rate 32; Glucose 123 mg/dL (65-110); Potassium 3.4 mmol/L (3.4-5.0); Sodium 131 mmol/L (137-145)
[2022-06-13 17:16] LABS: INR 1.5; Prothrombin Time 17.7 Seconds (11.1-14.7)
[2022-06-13 17:29] LABS: Mucus Urine Rare /lpf; RBC Urine 0-2 /hpf (0-2); Squamous Epithelial Cell Urine Rare /hpf (Few); WBC Urine 0-3 /hpf
[2022-06-13] MEDS: SODIUM CHLORIDE 0.9% IV 1,000 ML 999 ML IV CONT ×2 (17:37→18:24)
[2022-06-13 17:45] LABS: Creatine Kinase 237 U/L (55-170)
[2022-06-13 18:06] LABS: Platelet Estimate Adequate (Adequate)
[2022-06-13 18:07] LABS: Anisocytosis 1+ (NORMAL); Hypochromasia 1+ (NORMAL); Schistocytes None Seen (NORMAL)
[2022-06-13 18:08] LABS: Acanthocytes 1+ (NORMAL)
[2022-06-13 19:51] LABS: Influenza A QL RT-PCR Negative (Negative); Influenza B QL RT-PCR Negative (Negative); RSV RNA, RT-PCR Negative (Negative); SARS-CoV-2 RNA PCR Negative
--- NOTE | 2022-06-13 19:57 | PM.IMHP ---
H&P: HPI History of Present Illness Date/Time: 06/13/22 19:57 Chief Complaint: Weakness, altered mental status Narrative: Patient is an 82-year-old male with past medical history severe aortic stenosis, atrial fibrillation, history of CVA, congestive heart failure with reduced ejection fraction, type 2 diabetes who presents to the ED from senior living for weakness. Patient is a poor historian and history was obtained from patient's son Yoan (POA [phone]) and chart review. Patient has had a complicated medical history over last couple months. Patient was being worked up for aortic stenosis at [facility], developed a CVA during a left heart catheterization. During that hospitalization he had been given tPA. Subsequently patient arrived to our hospital 05/10 for influenza a. He subsequently during the hospitalization developed another CVA episode and neurology recommended apixaban. Echocardiogram showed EF 65-70% with severe critical aortic stenosis. Recommendations for Cardiology for outpatient follow-up with patient's electrical continuity inspector for aortic valve replacement. Patient has been in medical care over last 2 months and has not been able to follow-up with the electrical continuity inspector. Eventually was discharged on 05/27/2022. He also was thought to have a urinary tract infection with Enterococcus it he had been treated with amoxicillin. He was then discharged to [facility] for rehab. He has been did [facility] since and this morning, the staff and family noted patient having altered mental status prompting them to send him to the ED. I verified code status do not resuscitate with patient and patient's son Yoan. In the ED: No leukocytosis, hemoglobin better than on discharge at 8.4, sodium slightly low 131, elevated creatinine 2.00, BUN 39, AST elevated 228, UA negative for infection, viral panel negative. Patient to be admitted for observation for the acute kidney injury and acute metabolic encephalopathy. Review of Systems Review of Systems: Limited due to mental status. Acknowledges he is slightly confused Constitutional: No Fever, No Chills, No Night Sweats, No Fatigue, No Malaise ENT/Mouth: No Hearing Changes, No Ear Pain, No Nasal Congestion, No Sinus Pain, No Hoarseness, No sore throat, No Rhinorrhea, No Swallowing Difficulty Eyes: No Eye Pain, No Redness, No Vision Changes Cardiovascular: No Chest Pain, No Palpitations, No Dyspnea on Exertion, No Orthopnea, No Claudication, No Edema Respiratory: No Cough, No Sputum, No Wheezing, No Shortness of Breath Gastrointestinal: No Nausea, No Vomiting, No Diarrhea, No Constipation, No Abdominal Pain, No Heartburn, No Hematochezia, No Melena Genitourinary: No Dysuria, No Urinary Frequency, No Hematuria, No Urinary Incontinence, No Urgency Musculoskeletal: No Arthralgias, No Myalgias, No Joint Swelling, No Joint Stiffness, No Back Pain Skin: No Skin Lesions, No Pruritis, No Hair Changes Neuro: No Weakness, No Numbness, No Paresthesias, No Loss of Consciousness, No Syncope, No Dizziness, No Headache Psych: No Anxiety/Panic, No Depression, No Insomnia Heme: No Bruising, No Bleeding Lymph: No Adenopathy Endocrine: No Polyuria, No Polydipsia, No Temperature Intolerance [facility] Past Medical History Medical History Acute blood loss anemia Aortic stenosis BPH (benign prostatic hyperplasia) Carotid stenosis Depression Diabetes mellitus Hemoglobin A1c of 8.5 Erosive esophagitis Essential hypertension Hearing loss Hiatal hernia History of heart attack Hyperlipidemia Stricture intestinal Surgical History Surgical History History of bilateral cataract extraction Approximately 2009 History of coronary artery stent placement x2, 1994 History of laparoscopic cholecystectomy History of right common carotid artery stent placement History of total left knee replace
[2022-06-14] VITALS (7 sets, daily range): BP systolic 100–122; BP diastolic 48–74; PULSE 70–72; RESP 14–26; TEMP 36.2–36.6; O2SAT 92–97
[2022-06-14] MEDS: SODIUM CHLORIDE 0.9% IV 1,000 ML 125 ML IV CONT ×2 (03:29→08:45)
[2022-06-14 07:34] LABS: Basophils Percent Auto 0.5 % (0.2-1.2); Eosinophils Absolute Auto 0.2 K/mm3 (0-0.3); Eosinophils Percent Auto 1.9 % (0-4.4); Hematocrit 28.4 % (42.0-52.0); Hemoglobin 8.4 g/dL (14.0-18.0); Immature Granulocyte Absolute 0.11 K/mm3 (0.00-0.031); Immature Granulocyte Percent A 1.4 % (0-0.5); Lymphocytes Percent Auto 25.1 % (18.3-44.2); Mean Corpuscular HGB Conc 29.6 g/dl (32-36); Mean Corpuscular Hemoglobin 23.7 pg (26-34); Mean Corpuscular Volume 80.2 fl (80-100); Mean Platelet Volume 9.7 fl (7.4-10.4); Monocytes Percent Auto 12.8 % (2.6-8.5); Neutrophils Absolute Auto 4.6 K/mm3 (1.3-6.7); Neutrophils Percent Auto 58.3 % (45.5-73.1); Platelet Count Result 277 k/mm3 (150-375); Red Blood Count 3.54 M/mm3 (4.6-6.20); Red Cell Distribution Width 21.3 % (11.5-14.5)
[2022-06-14 07:36] LABS: Alanine Aminotransferase 44 U/L (6-50); Albumin Level 2.9 g/dL (3.5-5.1); Alkaline Phosphatase 285 U/L (38-126); Anion Gap 5 mmol/L (8-16); Aspartate Amino Transferase 243 U/L (17-59); Blood Urea Nitrogen 31 mg/dL (9-20); Calcium 10.6 mg/dL (8.4-10.2); Carbon Dioxide 29 mmol/L (22-30); Chloride 99 mmol/L (98-107); Estimated CRCL calculation 36 ml/min; Estimated Glomerular Filt Rate 48; Glucose 106 mg/dL (65-110); Potassium 3.2 mmol/L (3.4-5.0); Sodium 133 mmol/L (137-145)
[2022-06-14] MEDS: SACCHAROMYCES BOULARDII 250 MG CAPSULE PO ×2 (08:46→17:45)
[2022-06-14] MEDS: FINASTERIDE 5 MG TABLET PO (08:46)
[2022-06-14] MEDS: APIXABAN 5 MG TABLET PO ×2 (08:46→17:45)
[2022-06-14] MEDS: SALINE 0.65% NAS SOLN 44 ML BTL 1 SPRAY NASAL ×2 (08:46→17:45)
[2022-06-14] MEDS: TAMSULOSIN HCL 0.4 MG CAPSULE PO (08:46)
[2022-06-14] MEDS: ATORVASTATIN 40 MG TABLET 80 MG PO (08:46)
[2022-06-14] MEDS: EZETIMIBE 10 MG TABLET PO (08:46)
[2022-06-14] MEDS: PANTOPRAZOLE 40 MG TABLET PO (08:47)
[2022-06-14 08:50] LABS: Glucose Point of Care 108 mg/dl (65-105)
[2022-06-14] MEDS: FLUTICASONE/SALMETEROL 115-21 MCG INHALER 1 PUFF 2 PUFF INHALATION ×2 (09:41→20:12)
[2022-06-14 11:01] LABS: Anisocytosis 2+ (NORMAL); Platelet Estimate Adequate (Adequate); Poikilocytosis 1+ (NORMAL); Schistocytes 1+ (NORMAL)
[2022-06-14 11:02] LABS: Burr Cells 1+ (NORMAL)
--- NOTE | 2022-06-14 11:37 | PM.IMPN ---
Progress Note: A&P Assessment and Plan (1) Acute metabolic encephalopathy: Code(s): G93.41 - Metabolic encephalopathy Status: Acute Assessment and Plan: Multifactorial, monitor (2) Acute kidney failure: Code(s): N17.9 - Acute kidney failure, unspecified Status: Acute Assessment and Plan: Likely prerenal, started on IV fluids, hold Bumex, irbesartan Improving with IV fluids (3) Acute dehydration: Code(s): E86.0 - Dehydration Status: Acute Assessment and Plan: As above (4) Aortic stenosis: Code(s): I35.0 - Nonrheumatic aortic (valve) stenosis Status: Acute Assessment and Plan: consideration for TAVR procedure pending clinical improvement already pending with outpatient cardiology team (5) Hypokalemia: Code(s): E87.6 - Hypokalemia Status: Acute Assessment and Plan: Replete and recheck tomorrow (6) Atrial fibrillation: Code(s): I48.91 - Unspecified atrial fibrillation Status: Acute Assessment and Plan: Rate controlled, a flutter noted on ECG (7) Diabetes mellitus: Qualifiers: Diabetes mellitus complication status: without complication Diabetes mellitus test engine mechanic insulin use: without test engine mechanic use Diabetes mellitus type: type 2 Qualified Code(s): E11.9 - Type 2 diabetes mellitus without complications Code(s): E11.9 - Type 2 diabetes mellitus without complications Status: Acute Assessment and Plan: Accu-Cheks, sliding scale insulin, A1c was 6.5 earlier this month Hold metformin (8) Benign prostatic hyperplasia with urinary frequency: Code(s): N40.1 - Benign prostatic hyperplasia with lower urinary tract symptoms; R35.0 - Frequency of micturition Status: Acute Assessment and Plan: Continue Flomax (9) Anemia: Qualifiers: Anemia type: unspecified type Qualified Code(s): D64.9 - Anemia, unspecified Code(s): D64.9 - Anemia, unspecified Status: Acute Assessment and Plan: Stable, monitor (10) Hyperlipidemia: Code(s): E78.5 - Hyperlipidemia, unspecified Status: Acute Assessment and Plan: Continue statin and Zetia (11) COPD (chronic obstructive pulmonary disease): Code(s): J44.9 - Chronic obstructive pulmonary disease, unspecified Status: Acute Assessment and Plan: Stable (12) Depression with anxiety: Code(s): F41.8 - Other specified anxiety disorders Status: Acute Assessment and Plan: Continue home Lexapro (13) Heart failure: Code(s): I50.9 - Heart failure, unspecified Status: Acute Assessment and Plan: Hold Bumex, monitor volume status closely, echo from earlier this month showed an EF of 55-60%, echo from April 2022 showed moderate pulmonary hypertension, critical aortic valve stenosis, abnormal diastolic function Plan DVT prophylaxis with Eliquis GI prophylaxis with PPI Code status DNR Disposition back to [facility] when stable, PT OT consult pending Subjective Date/time seen: 06/14/22 11:37 Interval history: No overnight events noted. No chest pain or shortness of breath. No nausea, vomiting or diarrhea. No fevers or chills. Patient states he is eager to go home. He feels well. Review of Systems Review of Systems: 12 point review of systems was assessed and was negative except as noted in the HPI Exam Narrative: General: No acute distress, alert and oriented per baseline HEENT: Atraumatic, normocephalic, mucous membranes moist CV: Regular rate and rhythm, S1, S2, positive murmur Lungs: Clear to auscultation bilaterally, no rales or crackles noted, no wheezes, good air entry Abdomen: Soft, nontender, nondistended Extremities: Normal to inspection Skin: No rashes noted, no lesions or wounds seen Psych: Euthymic, normal affect Objective Data Vital Signs Vital Signs: Vital Signs - 24 hr
[2022-06-14 11:47] LABS: Glucose Point of Care 141 mg/dl (65-105)
[2022-06-14] MEDS: POTASSIUM CHLORIDE 20 MEQ TABLET 40 MEQ PO (13:01)
[2022-06-14 17:01] LABS: Glucose Point of Care 144 mg/dl (65-105)
[2022-06-14] MEDS: ESCITALOPRAM OXALATE 10 MG TABLET 20 MG PO (20:49)
[2022-06-14 22:18] LABS: Glucose Point of Care 166 mg/dl (65-105)
[2022-06-15] VITALS (7 sets, daily range): BP systolic 119–146; BP diastolic 55–72; PULSE 82–105; RESP 16–20; TEMP 36.3–36.9; O2SAT 94–96; BMI 24.5
[2022-06-15] MEDS: SODIUM CHLORIDE 0.9% IV 1,000 ML 125 ML IV CONT (05:00)
[2022-06-15 08:14] LABS: Basophils Absolute Auto 0.1 K/mm3 (0.0-0.1); Basophils Percent Auto 0.7 % (0.2-1.2); Eosinophils Absolute Auto 0.1 K/mm3 (0-0.3); Hematocrit 28.9 % (42.0-52.0); Hemoglobin 8.4 g/dL (14.0-18.0); Immature Granulocyte Absolute 0.19 K/mm3 (0.00-0.031); Immature Granulocyte Percent A 2.5 % (0-0.5); Lymphocytes Percent Auto 22.3 % (18.3-44.2); Mean Corpuscular HGB Conc 29.1 g/dl (32-36); Mean Corpuscular Hemoglobin 23.9 pg (26-34); Mean Corpuscular Volume 82.1 fl (80-100); Neutrophils Absolute Auto 4.6 K/mm3 (1.3-6.7); Neutrophils Percent Auto 60.5 % (45.5-73.1); Nucleated Red Blood Cells Perc 0.4 % (0.0-0.2); Platelet Count Result 273 k/mm3 (150-375); Red Blood Count 3.52 M/mm3 (4.6-6.20); Red Cell Distribution Width 21.6 % (11.5-14.5); White Blood Count 7.6 K/mm3 (4.5-10.0)
[2022-06-15 08:28] LABS: Alanine Aminotransferase 55 U/L (6-50); Alkaline Phosphatase 367 U/L (38-126); Anion Gap 5 mmol/L (8-16); Aspartate Amino Transferase 320 U/L (17-59); Bilirubin,Total 1.4 mg/dL (0.2-1.3); Blood Urea Nitrogen 19 mg/dL (9-20); Calcium 11.5 mg/dL (8.4-10.2); Carbon Dioxide 27 mmol/L (22-30); Chloride 105 mmol/L (98-107); Estimated CRCL calculation 49 ml/min; Estimated Glomerular Filt Rate > 60; Glucose 142 mg/dL (65-110); Potassium 3.4 mmol/L (3.4-5.0); Sodium 137 mmol/L (137-145)
[2022-06-15 08:44] LABS: Glucose Point of Care 156 mg/dl (65-105)
[2022-06-15] MEDS: FLUTICASONE/SALMETEROL 115-21 MCG INHALER 1 PUFF 2 PUFF INHALATION ×2 (09:07→20:21)
[2022-06-15] MEDS: APIXABAN 5 MG TABLET PO ×2 (09:21→17:44)
[2022-06-15] MEDS: SACCHAROMYCES BOULARDII 250 MG CAPSULE PO ×2 (09:21→17:44)
[2022-06-15] MEDS: SODIUM CHLORIDE 0.9% IV 1,000 ML 70 ML IV CONT ×2 (09:21→15:49)
[2022-06-15] MEDS: EZETIMIBE 10 MG TABLET PO (09:21)
[2022-06-15] MEDS: PANTOPRAZOLE 40 MG TABLET PO (09:22)
[2022-06-15] MEDS: FINASTERIDE 5 MG TABLET PO (09:22)
[2022-06-15] MEDS: ATORVASTATIN 40 MG TABLET 80 MG PO (09:22)
[2022-06-15] MEDS: TAMSULOSIN HCL 0.4 MG CAPSULE PO (09:22)
[2022-06-15 09:31] LABS: Folic Acid 8.9 ng/mL (2.76->20)
[2022-06-15 09:58] LABS: Hypochromasia 1+ (NORMAL); Platelet Estimate Adequate (Adequate)
[2022-06-15 09:59] LABS: Burr Cells 1+ (NORMAL); Microcytosis 2+ (NORMAL); Schistocytes None Seen (NORMAL)
[2022-06-15 11:48] LABS: Glucose Point of Care 160 mg/dl (65-105)
[2022-06-15 16:49] LABS: Glucose Point of Care 160 mg/dl (65-105)
[2022-06-15] MEDS: SALINE 0.65% NAS SOLN 44 ML BTL 1 SPRAY NASAL (17:44)
--- NOTE | 2022-06-15 19:07 | PM.IMPN ---
Progress Note: A&P Assessment and Plan (1) Acute metabolic encephalopathy: Code(s): G93.41 - Metabolic encephalopathy Status: Acute Assessment and Plan: CT head showing no acute findings. TSH mildly elevated. Multifactorial. He is awake and alert but confused. Unclear on baseline but no hx of dementia listed. Calcium now 11.5 which can cause issues. Remainder of his labs okay except AST>ALT. Respiratory viral panel was negative. Check TCK. No clinical evidence of CHF so will continue IV fluids for today. (2) Acute kidney failure: Code(s): N17.9 - Acute kidney failure, unspecified Status: Acute Assessment and Plan: Likely prerenal, started on IV fluids. Improving with IV fluids. Bumex on hold (3) Acute dehydration: Code(s): E86.0 - Dehydration Status: Acute Assessment and Plan: As above (4) Aortic stenosis: Code(s): I35.0 - Nonrheumatic aortic (valve) stenosis Status: Acute Assessment and Plan: consideration for TAVR procedure pending clinical improvement already pending with outpatient cardiology team (5) Heart failure: Code(s): I50.9 - Heart failure, unspecified Status: Acute Assessment and Plan: Echo from earlier this month showed an EF of 55-60%, echo from April 2022 showed moderate pulmonary hypertension, critical aortic valve stenosis, abnormal diastolic function. Hold Bumex, monitor volume status closely (6) Hypokalemia: Code(s): E87.6 - Hypokalemia Status: Acute Assessment and Plan: Replete and stable (7) Atrial fibrillation: Code(s): I48.91 - Unspecified atrial fibrillation Status: Acute Assessment and Plan: Rate controlled, a flutter noted on ECG (8) Diabetes mellitus: Qualifiers: Diabetes mellitus type: type 2 Diabetes mellitus mcc insulin use: without mcc use Diabetes mellitus complication status: without complication Qualified Code(s): E11.9 - Type 2 diabetes mellitus without complications Code(s): E11.9 - Type 2 diabetes mellitus without complications Status: Acute Assessment and Plan: Accu-Cheks, sliding scale insulin, A1c was 6.5 earlier this month Glucose well controlled Hold metformin (9) Benign prostatic hyperplasia with urinary frequency: Code(s): N40.1 - Benign prostatic hyperplasia with lower urinary tract symptoms; R35.0 - Frequency of micturition Status: Acute Assessment and Plan: Continue Flomax (10) Anemia: Qualifiers: Anemia type: unspecified type Qualified Code(s): D64.9 - Anemia, unspecified Code(s): D64.9 - Anemia, unspecified Status: Acute Assessment and Plan: Iron deficiency noted in April. Stable, monitor. Add iron (11) Hyperlipidemia: Code(s): E78.5 - Hyperlipidemia, unspecified Status: Acute Assessment and Plan: LFTs noted. Continue Zetia but hold statin (12) COPD (chronic obstructive pulmonary disease): Code(s): J44.9 - Chronic obstructive pulmonary disease, unspecified Status: Acute Assessment and Plan: Stable (13) Depression with anxiety: Code(s): F41.8 - Other specified anxiety disorders Status: Acute Assessment and Plan: Continue home Lexapro Plan DVT prophylaxis with Eliquis GI prophylaxis with PPI Code status DNR Disposition back to [facility] when stable, PT OT consult Subjective Date/time seen: 06/15/22 19:07 Interval history: Assuming care. Chart reviewed. No chest pain. He did have fluttering in the heart that he felt his related to the fact that his heart valves are shocked . He feels short of breath. He is alert but confused so history is somewhat unreliable Exam Narrative: General: No acute distress lying flat in bed HEENT: Atraumatic, normocephalic, mucous membranes moist CV: Irregul
[2022-06-15] MEDS: ESCITALOPRAM OXALATE 10 MG TABLET 20 MG PO (21:26)
[2022-06-15 22:43] LABS: Glucose Point of Care 151 mg/dl (65-105)
[2022-06-16 00:08] VITALS: O2SAT 92
[2022-06-16 04:00] VITALS: BP 131/80; PULSE 111; RESP 20; TEMP 36.3; O2SAT 97
--- NOTE | 2022-06-16 04:38 | PC.NURSE ---
@ Approximately 0330 patient was found covered in blood and had ripped out his IV. Patient also dumped beverage all over self and was completely disoriented. I had checked on patient around ten minutes prior and he was resting comfortably. Patient has no current IV access. Patient was still actively bleeding and I held pressure for approximately five minutes, as patient is taking Eliquis. Patient is cleaned and sleeping currently.
[2022-06-16 07:08] LABS: Basophils Absolute Auto 0.1 K/mm3 (0.0-0.1); Basophils Percent Auto 0.4 % (0.2-1.2); Eosinophils Percent Auto 0.2 % (0-4.4); Hemoglobin 8.6 g/dL (14.0-18.0); Immature Granulocyte Absolute 0.26 K/mm3 (0.00-0.031); Immature Granulocyte Percent A 2.3 % (0-0.5); Lymphocytes Percent Auto 16.8 % (18.3-44.2); Mean Corpuscular HGB Conc 28.7 g/dl (32-36); Mean Corpuscular Volume 83.8 fl (80-100); Mean Platelet Volume 9.7 fl (7.4-10.4); Monocytes Absolute Auto 1.4 K/mm3 (0.1-0.6); Neutrophils Absolute Auto 7.7 K/mm3 (1.3-6.7); Neutrophils Percent Auto 68.3 % (45.5-73.1); Nucleated Red Blood Cells Absolute Auto 0.1 K/mm3 (0.0-0.012); Nucleated Red Blood Cells Perc 0.8 % (0.0-0.2); Platelet Count Result 270 k/mm3 (150-375); Red Blood Count 3.58 M/mm3 (4.6-6.20); Red Cell Distribution Width 22.1 % (11.5-14.5); White Blood Count 11.3 K/mm3 (4.5-10.0)
[2022-06-16 07:21] LABS: Alanine Aminotransferase 66 U/L (6-50); Albumin Level 3.1 g/dL (3.5-5.1); Alkaline Phosphatase 414 U/L (38-126); Anion Gap 6 mmol/L (8-16); Aspartate Amino Transferase 367 U/L (17-59); Bilirubin,Total 1.9 mg/dL (0.2-1.3); Blood Urea Nitrogen 15 mg/dL (9-20); Calcium 12.2 mg/dL (8.4-10.2); Carbon Dioxide 27 mmol/L (22-30); Chloride 105 mmol/L (98-107); Creatine Kinase 312 U/L (55-170); Estimated CRCL calculation 45 ml/min; Estimated Glomerular Filt Rate > 60; Glucose 146 mg/dL (65-110); Magnesium 1.3 mg/dL (1.6-2.3); Potassium 4.3 mmol/L (3.4-5.0); Sodium 138 mmol/L (137-145)
[2022-06-16 07:45] LABS: Hypochromasia 2+ (NORMAL); Platelet Estimate Adequate (Adequate); Poikilocytosis 1+ (NORMAL)
[2022-06-16 07:47] LABS: Crenated RBC 1+ (NORMAL); Schistocytes Rare (NORMAL)
[2022-06-16 07:48] LABS: Acanthocytes 1+ (NORMAL)
[2022-06-16 08:00] VITALS: BP 134/72; PULSE 94; PULSE 95; RESP 20; RESP 22; TEMP 36.6; O2SAT 96
[2022-06-16 08:50] LABS: Glucose Point of Care 138 mg/dl (65-105)
[2022-06-16] MEDS: FUROSEMIDE INJ 40 MG/4 ML VIAL 20 MG IV PUSH (09:23)
--- NOTE | 2022-06-16 09:55 | PCPTNOTE ---
The patient treatment was not able to be completed due to patient being agitated and not able to participate in PT. Will plan to continue treatment per plan of care.
[2022-06-16 10:02] LABS: Parathyroid Intact 10.4 pg/mL (7.5-53.5)
[2022-06-16 10:36] LABS: Vitamin D 25 Hydroxy 28.5 ng/mL
[2022-06-16 11:29] LABS: Free T4 Free Thyroxine Reflex 1.46 ng/dL (0.78-2.19)
[2022-06-16 12:00] VITALS: BP 126/55; PULSE 94; RESP 20; TEMP 36.4; O2SAT 96
[2022-06-16 12:33] LABS: Glucose Point of Care 136 mg/dl (65-105)
[2022-06-16 12:43] LABS: Total Triiodothyronine (T3) 1.07 NG/ML (0.97-1.69)
--- NOTE | 2022-06-16 13:38 | PM.IMPN ---
Progress Note: A&P Assessment and Plan (1) Acute metabolic encephalopathy: Code(s): G93.41 - Metabolic encephalopathy Status: Acute Assessment and Plan: CT head showing no acute findings. TSH mildly elevated. CXR clear. UA clear. Had a nml WBC. Appears to have Delirium. Etiology unclear. Could be related to his markedly elevated calcium. He remains confused. No hx of dementia and this is new findings. Calcium now 12.2. Remainder of his labs okay except elevated LFTs. Respiratory viral panel was negative. No hx of alcohol abuse. No chronic narcotics or benzos listed. Continue IV fluids for today. Spoke with son. Patient has been having episodes of confusions at the shelter. Hospital coarse discussed. Hospice offered. (2) Hypercalcemia: Code(s): E83.52 - Hypercalcemia Status: Acute Assessment and Plan: Calcium mildly elevated on admission but has climbed to 12.2. iPTH low end of normal to suggest this has been going on for some time and now worse. Related to poor oral intake? AP also elevated but has been high for a while. Follow. Discussed with nephrology. (3) Acute kidney failure: Code(s): N17.9 - Acute kidney failure, unspecified Status: Acute Assessment and Plan: Likely prerenal, started on IV fluids. Bumex on hold. Creatinine better now. Resolved. (4) Elevated LFTs: Code(s): R79.89 - Other specified abnormal findings of blood chemistry Status: Acute Assessment and Plan: LFTs were elevated yesterday higher today. Total CK was 312. Etiology unclear. Could be related to hepatic congestion from his critical . Right upper quadrant ultrasound has been ordered and is pending. Check hepatitis panel (5) Acute dehydration: Code(s): E86.0 - Dehydration Status: Acute Assessment and Plan: As above (6) Aortic stenosis: Code(s): I35.0 - Nonrheumatic aortic (valve) stenosis Status: Acute Assessment and Plan: Myrna has critical with CHRISTIANO of 0.4. He was supposed to follow up with cardiology for consideration for TAVR but this has yet to be arranged. suspect patient is very fluid sensitive with mild dehydration causing acute kidney injury but with rehydration now causing hepatic congestion. follow-up with cardiology as soon as possible to arrange for evaluation for TAVR. (7) Heart failure: Code(s): I50.9 - Heart failure, unspecified Status: Acute Assessment and Plan: Echo from earlier this month showed an EF of 55-60%. Echo from April 2022 showed moderate pulmonary hypertension, critical aortic valve stenosis, abnormal diastolic function. Bumex remains on hold. Will stop IV fluids. (8) Hypokalemia: Code(s): E87.6 - Hypokalemia Status: Acute Assessment and Plan: Replete and stable. Magnesium was low and so will replace. (9) Atrial fibrillation: Code(s): I48.91 - Unspecified atrial fibrillation Status: Acute Assessment and Plan: Atrial flutter noted on EKG. Rate is controlled. Continue Eliquis. (10) Diabetes mellitus: Qualifiers: Diabetes mellitus complication status: without complication Diabetes mellitus group home insulin use: without terminal operations supervisor use Diabetes mellitus type: type 2 Qualified Code(s): E11.9 - Type 2 diabetes mellitus without complications Code(s): E11.9 - Type 2 diabetes mellitus without complications Status: Acute Assessment and Plan: A1c 6.5 The patient's blood glucose was reviewed on Glucose remains well controlled. Continue AccuCheks covering with sliding scale. Hypoglycemia protocol available as needed. Continue to monitor. (11) Benign prostatic hyperplasia with urinary frequency: Code(s): N40.1 - Benign prostatic hyperplasia with lower urinary tract symptoms; R35.0 - Frequency of micturition Status: Acute Assessment and Plan: Contin
[2022-06-16 14:18] LABS: Phosphorus 2.8 mg/dL (2.5-4.5)
[2022-06-16 14:53] LABS: Hepatitis B Surface Antigen Negative (Negative)
[2022-06-16 14:58] LABS: Ammonia 18 umol/L (9-30)
[2022-06-16 15:07] LABS: Hepatitis C Virus Antibody Negative (Negative)
[2022-06-16 15:14] LABS: HAV RESULT Negative (Negative); Hepatitis B Core IgM Result Negative (Negative)
[2022-06-16] MEDS: MAGNESIUM SULF 2 GM/WATER 50ML 2 GM/50 ML BAG IVPB (15:47)
[2022-06-16 17:15] LABS: Glucose Point of Care 148 mg/dl (65-105)
[2022-06-16 19:42] VITALS: BP 130/51; PULSE 76; RESP 17; TEMP 36.4; O2SAT 95
[2022-06-16] MEDS: ESCITALOPRAM OXALATE 10 MG TABLET 20 MG PO (20:38)
[2022-06-16] MEDS: FLUTICASONE/SALMETEROL 115-21 MCG INHALER 1 PUFF 2 PUFF INHALATION (22:07)
[2022-06-16 22:12] VITALS: O2SAT 93
[2022-06-17 03:23] VITALS: BP 126/80; PULSE 88; RESP 22; TEMP 36.4; O2SAT 100
[2022-06-17 07:31] LABS: Basophils Absolute Auto 0.1 K/mm3 (0.0-0.1); Basophils Percent Auto 0.6 % (0.2-1.2); Eosinophils Percent Auto 0.4 % (0-4.4); Hematocrit 31.9 % (42.0-52.0); Hemoglobin 9.3 g/dL (14.0-18.0); Immature Granulocyte Absolute 0.19 K/mm3 (0.00-0.031); Immature Granulocyte Percent A 1.9 % (0-0.5); Lymphocytes Percent Auto 13.9 % (18.3-44.2); Mean Corpuscular HGB Conc 29.2 g/dl (32-36); Mean Corpuscular Hemoglobin 23.7 pg (26-34); Mean Corpuscular Volume 81.4 fl (80-100); Mean Platelet Volume 9.8 fl (7.4-10.4); Monocytes Absolute Auto 0.9 K/mm3 (0.1-0.6); Monocytes Percent Auto 8.8 % (2.6-8.5); Neutrophils Absolute Auto 7.5 K/mm3 (1.3-6.7); Neutrophils Percent Auto 74.4 % (45.5-73.1); Nucleated Red Blood Cells Absolute Auto 0.1 K/mm3 (0.0-0.012); Nucleated Red Blood Cells Perc 0.7 % (0.0-0.2); Platelet Count Result 258 k/mm3 (150-375); Red Blood Count 3.92 M/mm3 (4.6-6.20); Red Cell Distribution Width 22.7 % (11.5-14.5); White Blood Count 10.1 K/mm3 (4.5-10.0)
[2022-06-17 07:47] LABS: Alanine Aminotransferase 79 U/L (6-50); Albumin Level 3.1 g/dL (3.5-5.1); Alkaline Phosphatase 497 U/L (38-126); Anion Gap 3 mmol/L (8-16); Aspartate Amino Transferase 445 U/L (17-59); Bilirubin,Total 2.9 mg/dL (0.2-1.3); Blood Urea Nitrogen 19 mg/dL (9-20); Calcium 12.4 mg/dL (8.4-10.2); Carbon Dioxide 33 mmol/L (22-30); Chloride 106 mmol/L (98-107); Estimated CRCL calculation 45 ml/min; Estimated Glomerular Filt Rate > 60; Glucose 136 mg/dL (65-110); Magnesium 1.7 mg/dL (1.6-2.3); Phosphorus 2.4 mg/dL (2.5-4.5); Potassium 3.5 mmol/L (3.4-5.0); Sodium 142 mmol/L (137-145)
[2022-06-17 07:58] LABS: Glucose Point of Care 131 mg/dl (65-105)
[2022-06-17 08:00] VITALS: BP 130/64; PULSE 82; RESP 20; TEMP 36.1; O2SAT 99
[2022-06-17 08:14] LABS: Anisocytosis 2+ (NORMAL); Hypochromasia 1+ (NORMAL); Platelet Estimate Adequate (Adequate); Schistocytes Rare (NORMAL)
[2022-06-17 08:16] LABS: Microcytosis 1+ (NORMAL); Poikilocytosis 1+ (NORMAL)
[2022-06-17] MEDS: SACCHAROMYCES BOULARDII 250 MG CAPSULE PO ×2 (08:32→17:17)
[2022-06-17] MEDS: PANTOPRAZOLE 40 MG TABLET PO (08:33)
[2022-06-17] MEDS: SALINE 0.65% NAS SOLN 44 ML BTL 1 SPRAY NASAL ×2 (08:33→17:17)
[2022-06-17] MEDS: EZETIMIBE 10 MG TABLET PO (08:33)
[2022-06-17] MEDS: FINASTERIDE 5 MG TABLET PO (08:33)
[2022-06-17] MEDS: FERROUS SULFATE 324 MG TABLET PO ×2 (08:33→17:17)
[2022-06-17] MEDS: APIXABAN 5 MG TABLET PO ×2 (08:33→17:17)
[2022-06-17] MEDS: TAMSULOSIN HCL 0.4 MG CAPSULE PO (08:33)
--- NOTE | 2022-06-17 09:31 | PCOTNOTE ---
Attempted to see patient this am, however patient unable to arouse for functional OT at this time. OT standing at door when patient began coughing. Pt asked if coughing or choking and patient stated, Choking. Pt unable to swallow, however OT was able to get patient to spit out and OT assisted scooping out. RN notified.
[2022-06-17 11:48] LABS: Glucose Point of Care 153 mg/dl (65-105)
[2022-06-17 12:00] VITALS: BP 123/65; PULSE 88; RESP 20; TEMP 36.3; O2SAT 96
[2022-06-17 16:00] VITALS: BP 106/50; PULSE 76; RESP 20; TEMP 36.6; O2SAT 98
--- NOTE | 2022-06-17 16:22 | PM.IMPN ---
Progress Note: A&P Assessment and Plan (1) Acute metabolic encephalopathy: Code(s): G93.41 - Metabolic encephalopathy Status: Acute Assessment and Plan: CT head showing no acute findings. TSH mildly elevated. CXR clear. UA clear. Had a nml WBC. Appears to have Delirium. Etiology unclear. He remains confused. No hx of dementia and this is new findings. Calcium now 12.2. Could be related to his markedly elevated calcium. Remainder of his labs okay except elevated LFTs. Respiratory viral panel was negative. No hx of alcohol abuse. No chronic narcotics or benzos listed. Continue IV fluids. Repeat CT brain. Can't do MR brain due to carotid sten since not sure if compatible. Speech therapy to see. Change to Level 5 diet. (2) Hypercalcemia: Code(s): E83.52 - Hypercalcemia Status: Acute Assessment and Plan: Calcium mildly elevated on admission but has climbed to 12.4 and stable. iPTH low end of normal to suggest this has been going on for some time and now worse. Related to poor oral intake? AP also elevated but has been high for a while. Follow. Check skeletal survey. Check PSA (3) Acute kidney failure: Code(s): N17.9 - Acute kidney failure, unspecified Status: Acute Assessment and Plan: Likely prerenal, started on IV fluids. Bumex on hold. Creatinine better now. Resolved. Will resume Bumex today. (4) Elevated LFTs: Code(s): R79.89 - Other specified abnormal findings of blood chemistry Status: Acute Assessment and Plan: LFTs are higher again today. Total CK was 312. Hepatitis panel negative. RUQ showing no mass lesions, biliary duct dilitation or portal vein thrombus. AP could be elevated related to bony abnormalities to correspond with the hypercalcemia. Could be related to hepatic congestion from his critical . Follow. No MRCP since has stent and unclear if MRI compatible. (5) Acute dehydration: Code(s): E86.0 - Dehydration Status: Acute Assessment and Plan: As above (6) Aortic stenosis: Code(s): I35.0 - Nonrheumatic aortic (valve) stenosis Status: Acute Assessment and Plan: Myrna has critical with CHRISTIANO of 0.4. He was supposed to follow up with cardiology for consideration for TAVR but this has yet to be arranged. Suspect patient is very fluid sensitive with mild dehydration causing acute kidney injury but with rehydration now causing hepatic congestion. Follow-up with cardiology as soon as possible to arrange for evaluation for TAVR. (7) Heart failure: Code(s): I50.9 - Heart failure, unspecified Status: Acute Assessment and Plan: Echo from earlier this month showed an EF of 55-60%. Echo from April 2022 showed moderate pulmonary hypertension, critical aortic valve stenosis, and abnormal diastolic function. Bumex remains on hold. Resume Bumex (8) Hypokalemia: Code(s): E87.6 - Hypokalemia Status: Acute Assessment and Plan: Noted. WIll continue to replace. (9) Atrial fibrillation: Code(s): I48.91 - Unspecified atrial fibrillation Status: Acute Assessment and Plan: Atrial flutter noted on EKG. Rate is controlled. Continue Eliquis. 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 Continue AccuCheks covering with sliding scale. Hypoglycemia protocol available as needed. Continue to monitor. (11) Benign prostatic hyperplasia with urinary frequency: Code(s): N40.1 - Benign prostatic h
[2022-06-17 16:58] LABS: Glucose Point of Care 175 mg/dl (65-105)
[2022-06-17] MEDS: POTASSIUM CHLORIDE 20 MEQ TABLET 40 MEQ PO (17:17)
[2022-06-17] MEDS: BUMETANIDE 0.5 MG TABLET PO (17:17)
[2022-06-17 20:00] VITALS: BP 109/58; PULSE 72; RESP 18; TEMP 36.6; O2SAT 98
[2022-06-17] MEDS: ESCITALOPRAM OXALATE 10 MG TABLET 20 MG PO (21:18)
[2022-06-17 21:46] LABS: Glucose Point of Care 146 mg/dl (65-105)
[2022-06-17 23:51] VITALS: BP 99/70; PULSE 98; RESP 20; TEMP 36.2; O2SAT 98
[2022-06-18 04:00] VITALS: BP 111/66; PULSE 83; RESP 22; TEMP 36.5; O2SAT 97
[2022-06-18 07:32] LABS: Basophils Absolute Auto 0.1 K/mm3 (0.0-0.1); Basophils Percent Auto 0.6 % (0.2-1.2); Eosinophils Absolute Auto 0.1 K/mm3 (0-0.3); Eosinophils Percent Auto 0.6 % (0-4.4); Hematocrit 29.9 % (42.0-52.0); Hemoglobin 8.6 g/dL (14.0-18.0); Immature Granulocyte Absolute 0.17 K/mm3 (0.00-0.031); Immature Granulocyte Percent A 1.6 % (0-0.5); Lymphocytes Absolute Auto 1.26 K/mm3 (0.9-3.2); Mean Corpuscular HGB Conc 28.8 g/dl (32-36); Mean Corpuscular Hemoglobin 23.4 pg (26-34); Mean Corpuscular Volume 81.5 fl (80-100); Mean Platelet Volume 9.6 fl (7.4-10.4); Monocytes Absolute Auto 0.9 K/mm3 (0.1-0.6); Monocytes Percent Auto 8.2 % (2.6-8.5); Neutrophils Absolute Auto 8.1 K/mm3 (1.3-6.7); Nucleated Red Blood Cells Absolute Auto 0.1 K/mm3 (0.0-0.012); Nucleated Red Blood Cells Perc 0.7 % (0.0-0.2); Platelet Count Result 234 k/mm3 (150-375); Red Blood Count 3.67 M/mm3 (4.6-6.20); Red Cell Distribution Width 23.2 % (11.5-14.5); White Blood Count 10.5 K/mm3 (4.5-10.0)
[2022-06-18 07:58] LABS: Alanine Aminotransferase 86 U/L (6-50); Albumin Level 2.7 g/dL (3.5-5.1); Alkaline Phosphatase 497 U/L (38-126); Anion Gap 1 mmol/L (8-16); Aspartate Amino Transferase 476 U/L (17-59); Bilirubin,Total 3.2 mg/dL (0.2-1.3); Blood Urea Nitrogen 23 mg/dL (9-20); Calcium 11.8 mg/dL (8.4-10.2); Carbon Dioxide 34 mmol/L (22-30); Chloride 107 mmol/L (98-107); Estimated CRCL calculation 45 ml/min; Estimated Glomerular Filt Rate > 60; Glucose 123 mg/dL (65-110); Magnesium 1.6 mg/dL (1.6-2.3); Phosphorus 1.9 mg/dL (2.5-4.5); Potassium 3.7 mmol/L (3.4-5.0); Sodium 142 mmol/L (137-145)
[2022-06-18 08:00] VITALS: BP 112/65; PULSE 88; RESP 20; TEMP 36.4; O2SAT 97
[2022-06-18 08:00] LABS: Glucose Point of Care 127 mg/dl (65-105)
[2022-06-18 08:02] LABS: Hypochromasia 1+ (NORMAL); Platelet Estimate Adequate (Adequate)
[2022-06-18 08:03] LABS: Microcytosis 1+ (NORMAL); Ovalocytes 1+ (NORMAL); Schistocytes None Seen (NORMAL)
[2022-06-18 08:19] LABS: Prostate Specific Antigen 1.3 ng/mL (< OR = 4.0)
[2022-06-18] MEDS: APIXABAN 5 MG TABLET PO ×2 (09:09→17:12)
[2022-06-18] MEDS: BUMETANIDE 0.5 MG TABLET PO (09:09)
[2022-06-18] MEDS: FINASTERIDE 5 MG TABLET PO (09:09)
[2022-06-18] MEDS: FERROUS SULFATE 324 MG TABLET PO ×2 (09:09→17:12)
[2022-06-18] MEDS: PANTOPRAZOLE 40 MG TABLET PO (09:10)
[2022-06-18] MEDS: TAMSULOSIN HCL 0.4 MG CAPSULE PO (09:10)
[2022-06-18] MEDS: SACCHAROMYCES BOULARDII 250 MG CAPSULE PO ×2 (09:10→17:12)
[2022-06-18 11:51] LABS: Glucose Point of Care 122 mg/dl (65-105)
[2022-06-18 12:00] VITALS: BP 113/51; PULSE 90; RESP 20; TEMP 36.4; O2SAT 97
[2022-06-18 15:19] LABS: Creatine Kinase 279 U/L (55-170)
--- NOTE | 2022-06-18 15:23 | PM.IMPN ---
Progress Note: A&P Assessment and Plan (1) Acute metabolic encephalopathy: Code(s): G93.41 - Metabolic encephalopathy Status: Acute Assessment and Plan: CT head showing no acute findings. TSH mildly elevated. CXR clear. UA clear. Had a nml WBC. Repeat CT brain showing no change. He remains confused. No hx of dementia and this is new findings. Calcium was 12.2 but better now. Could be related to his markedly elevated calcium. Remainder of his labs okay except elevated LFTs. Phos and mag low and replacement ordered. Respiratory viral panel was negative. No hx of alcohol abuse. No chronic narcotics or benzos listed. Patient has a carotid stent and unknown if MRI compatible so no brain MRI. Neuro consult. Try Trazodone at night. Discussed with son at bedside. All questions answered to his satisfaction (2) Hypercalcemia: Code(s): E83.52 - Hypercalcemia Status: Acute Assessment and Plan: Calcium mildly elevated on admission but climbed to 12.4 for unclear reasons. iPTH approrpiately low end of normal to suggest this has been going on for a while. AP also elevated but has been high for a while. PSA normal. Skeletal survey showing no acute findings to explain the elevated Calcium. Probably related to bedrest. Level trending down. Follow. (3) Acute kidney failure: Code(s): N17.9 - Acute kidney failure, unspecified Status: Acute Assessment and Plan: Likely prerenal. He was started on IV fluids and Bumex on hold. Creatinine better now. Resolved. Bumex resumed and he is tolerating this well. (4) Elevated LFTs: Code(s): R79.89 - Other specified abnormal findings of blood chemistry Status: Acute Assessment and Plan: LFTs about the same today. Total CK was 312 and trending down. Hepatitis panel negative. RUQ showing no mass lesions, biliary duct dilation or portal vein thrombus. AP could be elevated related to bony abnormalities to correspond with the hypercalcemia but nothing concerning on skeletal survey. Could be related to hepatic congestion from his critical . Follow. (5) Aortic stenosis: Code(s): I35.0 - Nonrheumatic aortic (valve) stenosis Status: Acute Assessment and Plan: Myrna has critical with CHRISTIANO of 0.4. He was supposed to follow up with cardiology for consideration for TAVR but this has yet to be arranged. Suspect patient is very fluid sensitive with mild dehydration causing acute kidney injury but with rehydration now causing hepatic congestion. Follow-up with cardiology as soon as possible to arrange for evaluation for TAVR. (6) Heart failure: Code(s): I50.9 - Heart failure, unspecified Status: Acute Assessment and Plan: Echo from earlier this month showed an EF of 55-60%. Echo from April 2022 showed moderate pulmonary hypertension, critical aortic valve stenosis, and abnormal diastolic function. Bumex resumed. (7) Atrial fibrillation: Code(s): I48.91 - Unspecified atrial fibrillation Status: Acute Assessment and Plan: Atrial flutter noted on EKG. Rate is controlled. Continue Eliquis. 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 Continue AccuCheks covering with sliding scale. Hypoglycemia protocol available as needed. Continue to monitor. (9) Anemia: Qualifiers: Anemia type: unspecified type Qualified Code(s): D64.9 - Anemia, unspecified Code(s): D64.9 - Anemia, unspecified Status: Acute Ass
[2022-06-18 16:00] VITALS: BP 103/68; PULSE 91; RESP 20; TEMP 36.1; O2SAT 94
[2022-06-18] MEDS: MAGNESIUM SULF 2 GM/WATER 50ML 2 GM/50 ML BAG IVPB (17:02)
[2022-06-18 17:05] LABS: Glucose Point of Care 120 mg/dl (65-105)
[2022-06-18] MEDS: POTASSIUM PHOS/SODIUM PHOS 250 MG TABLET PO (17:11)
[2022-06-18] MEDS: SALINE 0.65% NAS SOLN 44 ML BTL 1 SPRAY NASAL (17:12)
[2022-06-18 19:46] VITALS: O2SAT 94
[2022-06-18 20:00] VITALS: BP 100/63; PULSE 98; RESP 22; TEMP 36.4; O2SAT 96
[2022-06-18] MEDS: ACETAMINOPHEN 325 MG TABLET 650 MG PO (20:32)
[2022-06-18] MEDS: traZODone HCL 25 MG TABLET PO (20:32)
[2022-06-18] MEDS: ESCITALOPRAM OXALATE 10 MG TABLET 20 MG PO (20:32)
[2022-06-18] MEDS: FLUTICASONE/SALMETEROL 115-21 MCG INHALER 1 PUFF 2 PUFF INHALATION (21:08)
[2022-06-18 22:48] LABS: Glucose Point of Care 138 mg/dl (65-105)
[2022-06-19] VITALS (7 sets, daily range): BP systolic 106–131; BP diastolic 49–80; PULSE 60–103; RESP 18; TEMP 36.1–36.4; O2SAT 93–99
--- NOTE | 2022-06-19 06:27 | PC.NURSE ---
pt refusing lab draw this am
[2022-06-19 07:49] LABS: Albumin 2.7 g/dL (3.8-4.8); Alpha 1 Globulin 0.4 g/dL (0.2-0.3); Alpha 2 Globulin 0.8 g/dL (0.5-0.9); Beta 1 Globulin 0.4 g/dL (0.4-0.6); Gamma Globulin 0.9 g/dL (0.8-1.7); Ionized Calcium 6.9 mg/dL (4.8-5.6); Protein, Total 5.4 g/dL (6.1-8.1)
[2022-06-19 08:19] LABS: Glucose Point of Care 125 mg/dl (65-105)
[2022-06-19] MEDS: APIXABAN 5 MG TABLET PO ×2 (08:37→17:31)
[2022-06-19] MEDS: TAMSULOSIN HCL 0.4 MG CAPSULE PO (08:37)
[2022-06-19] MEDS: SACCHAROMYCES BOULARDII 250 MG CAPSULE PO ×2 (08:37→17:31)
[2022-06-19] MEDS: FINASTERIDE 5 MG TABLET PO (08:37)
[2022-06-19] MEDS: PANTOPRAZOLE 40 MG TABLET PO (08:37)
[2022-06-19] MEDS: FERROUS SULFATE 324 MG TABLET PO ×2 (08:37→17:31)
[2022-06-19] MEDS: BUMETANIDE 0.5 MG TABLET PO (08:37)
[2022-06-19] MEDS: EZETIMIBE 10 MG TABLET PO (08:37)
[2022-06-19] MEDS: SALINE 0.65% NAS SOLN 44 ML BTL 1 SPRAY NASAL ×2 (08:38→17:31)
[2022-06-19] MEDS: FLUTICASONE/SALMETEROL 115-21 MCG INHALER 1 PUFF 2 PUFF INHALATION ×2 (09:15→21:23)
--- NOTE | 2022-06-19 10:50 | WPDNEURCNPN ---
Assessment and Plan Assessment and plan (1) Encephalopathy: Code(s): G93.40 - Encephalopathy, unspecified Status: Acute (2) Atrial fibrillation: Code(s): I48.91 - Unspecified atrial fibrillation Status: Acute (3) CVA (cerebral vascular accident): Code(s): I63.9 - Cerebral infarction, unspecified Status: Acute (4) Acute dehydration: Code(s): E86.0 - Dehydration Status: Acute (5) Hypercalcemia: Code(s): E83.52 - Hypercalcemia Status: Acute (6) Elevated LFTs: Code(s): R79.89 - Other specified abnormal findings of blood chemistry Status: Acute (7) Acute kidney failure: Code(s): N17.9 - Acute kidney failure, unspecified Status: Acute Plan Robert Brady is a 82 year old male with a history of atrial fibrillation, rate controlled anticoagulated, critical aortic stenosis, type 2 diabetes mellitus, benign prostatic hyperplasia, hypertension, and recent stroke currently admitted due to altered mental status. Etiology is unclear but considering metabolic encephalopathy (elevated LFTs, uremia, hypercalcemia) vs new stroke (several risk factors). There also seems to be a gradual decline in functioning since the stroke in April (vascular dementia?). - Routine EEG can be done to assess background - Would be helpful to know if carotid stents are MRI compatible so that we can get MRI brain to assess stroke burden from prior admissions and evaluate for new stroke Consult date: 06/19/22 Time Seen: 10:50 Reason for consult: Altered mental status HPI: Robert Brady is a 82 year old male with a history of atrial fibrillation, rate controlled anticoagulated, critical aortic stenosis, type 2 diabetes mellitus, benign prostatic hyperplasia, and hypertension presenting for altered mental status. Of note, patient was admitted to [facility] for acute stroke in April 2022. He received tPA at the time, and his symptoms had resolved. He was admitted to [place] ED in May 2022 for repiratory distress in the setting of influenza and had altered mental status. There were also reports of expressive and receptive aphasia as well as possible right sided hemineglect. He had a CT head which showed old infarct in the R frontal lobe and anterior right insula as well as chronic encephalomalacia in the bilateral basal ganglia. CTA showed patent stent in the R common carotid artery and ICA with compression of the stent at the carotid bifurcation with moderate stenosis and 8% stenosis of the proximal left ICA. Case was discussed by the ICU with [facility] stroke team and per chart review, patient had similar compression of carotid stent at the time of his stroke in April 2022 that appeared to be unchanged. Patient was not a candidate for tPA due to being on anticoagulation with Eliquis as well as recent stroke. MRI brain was not obtained during that admission due to uncertainty regarding whether his carotid stents were MRI compatible. He presented again on 07/04/21 due to increasing falls, lethargy and confusion as well as generalized weakness over the past few weeks. He was admitted for dehydration. Work-up including CT head was unrevealing x 2. Labs were significant for mild elevation in TSH (5.76), elevated BUN (39), and elevated AST/ALT (476/86). Ammonia, B12, and folate levels were normal. He also had elevated calcium during admission. No family at bedside this morning. Review of Systems Review of Systems: ROS unobtainable: Yes unobtainable due to mental status PMFSH Past Medical History Medical History Acute blood loss anemia Aortic stenosis BPH (benign prostatic hyperplasia) Carotid stenosis COPD (chronic obstructive pulmonary disease) Depression Depression with anxiety Diabetes mellitus Hemoglobin A1c of 8.5 Erosive esophagitis Essential hypertension Hearing loss Hiatal hernia History of heart attack Hyperlipidemia S
[2022-06-19 12:08] LABS: Glucose Point of Care 125 mg/dl (65-105)
--- NOTE | 2022-06-19 15:54 | PM.IMPN ---
Progress Note: A&P Assessment and Plan (1) Acute metabolic encephalopathy: Code(s): G93.41 - Metabolic encephalopathy Status: Acute Assessment and Plan: CT head showing no acute findings. TSH mildly elevated. CXR clear. UA clear. Had a nml WBC. Repeat CT brain showing no change. He remains confused. No hx of dementia and this is new findings. Calcium elevated in the 11-12 range. Confusion could be related to his markedly elevated calcium. Phos and mag low and have been replaced. Remainder of his labs okay except elevated LFTs. Respiratory viral panel was negative. No hx of alcohol abuse. No chronic narcotics or benzos listed. Patient has a carotid stent and unknown if MRI compatible so no brain MRI. Neuro consulted and appreciate their input. Trazodone at night started (first dose 06/18). More appropriate today. Continue to follow. (2) Hypercalcemia: Code(s): E83.52 - Hypercalcemia Status: Acute Assessment and Plan: Calcium mildly elevated on admission but climbed to 11-12 range for unclear reasons. 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 ICa elevated. iPTH appropriately low end of normal to suggest this has been going on for a while. AP also elevated but has been high for a while. PSA normal. SPEP showing acute inflammatory process. Vit D(25) was 28. TSH normal. Skeletal survey showing no acute findings. Probably related to bedrest. Check cortisol, Vit D 1,25, PTHrp, UPEP, Light chains. Follow. (3) Elevated LFTs: Code(s): R79.89 - Other specified abnormal findings of blood chemistry Status: Acute Assessment and Plan: LFTs have been elevated since last month but higher this admission and worsening. TBili up to 4.8 now. Total CK was 312 and trending down. Hepatitis panel negative. RUQ showing no mass lesions, biliary duct dilation or portal vein thrombus. AP could be elevated related to bony abnormalities to correspond with the hypercalcemia but nothing concerning on skeletal survey. Could be related to hepatic congestion from his critical . No MRCP as above. GI consult. Check CT Ch/A/P. Follow. (4) Acute kidney failure: Code(s): N17.9 - Acute kidney failure, unspecified Status: Acute Assessment and Plan: Cr 2.0 on admission. Likely prerenal. He was started on IV fluids and Bumex on hold. Creatinine better now. Bumex resumed and he is tolerating this well. Cr 1.2 and at baseline. Follow. (5) Aortic stenosis: Code(s): I35.0 - Nonrheumatic aortic (valve) stenosis Status: Acute Assessment and Plan: Patient has critical with CHRISTIANO of 0.4. He was supposed to follow up with cardiology for consideration for TAVR but this has yet to be arranged. Suspect patient is very fluid sensitive with mild dehydration causing acute kidney injury but with rehydration now causing hepatic congestion. Follow-up with cardiology as soon as possible to arrange for evaluation for TAVR. (6) Heart failure: Code(s): I50.9 - Heart failure, unspecified Status: Acute Assessment and Plan: Echo from earlier this month showed an EF of 55-60%. Echo from April 2022 showed moderate pulmonary hypertension, critical aortic valve stenosis, and abnormal diastolic function. Bumex resumed. (7) Atrial fibrillation: Code(s): I48.91 - Unspecified atrial fibrillation Status: Acute Assessment and Plan: Atrial flutter noted on EKG. Rate is controlled. Continue Eliquis. (8) Diabetes mellitus: Qualifiers: Diabetes mellitus complication status: without complication Diabetes mellitus senior living insulin use: without senior living use Diabetes mellitus type: type 2 Qualified Code(s): E11.9 - Type 2 diabetes mellitus without complications Code(s): E11.9 - Type 2 diabetes mellitus without complications Status: Acute Assessment and Plan: A1c 6.5 The p
[2022-06-19 16:10] LABS: Basophils Percent Auto 0.3 % (0.2-1.2); Eosinophils Percent Auto 0.3 % (0-4.4); Hematocrit 33.8 % (42.0-52.0); Hemoglobin 9.9 g/dL (14.0-18.0); Immature Granulocyte Absolute 0.15 K/mm3 (0.00-0.031); Immature Granulocyte Percent A 1.3 % (0-0.5); Lymphocytes Absolute Auto 1.55 K/mm3 (0.9-3.2); Lymphocytes Percent Auto 13.3 % (18.3-44.2); Mean Corpuscular HGB Conc 29.3 g/dl (32-36); Mean Corpuscular Hemoglobin 24.9 pg (26-34); Mean Corpuscular Volume 85.1 fl (80-100); Mean Platelet Volume 9.9 fl (7.4-10.4); Monocytes Percent Auto 8.4 % (2.6-8.5); Neutrophils Absolute Auto 8.9 K/mm3 (1.3-6.7); Neutrophils Percent Auto 76.4 % (45.5-73.1); Nucleated Red Blood Cells Absolute Auto 0.1 K/mm3 (0.0-0.012); Nucleated Red Blood Cells Perc 0.9 % (0.0-0.2); Platelet Count Result 253 k/mm3 (150-375); Red Blood Count 3.97 M/mm3 (4.6-6.20); Red Cell Distribution Width 23.9 % (11.5-14.5); White Blood Count 11.6 K/mm3 (4.5-10.0)
[2022-06-19 16:19] LABS: Alanine Aminotransferase 108 U/L (6-50); Albumin Level 3.1 g/dL (3.5-5.1); Alkaline Phosphatase 696 U/L (38-126); Anion Gap 4 mmol/L (8-16); Aspartate Amino Transferase 655 U/L (17-59); Bilirubin,Total 4.8 mg/dL (0.2-1.3); Blood Urea Nitrogen 30 mg/dL (9-20); Calcium 12.1 mg/dL (8.4-10.2); Carbon Dioxide 33 mmol/L (22-30); Chloride 106 mmol/L (98-107); Estimated CRCL calculation 42 ml/min; Estimated Glomerular Filt Rate 58; Glucose 133 mg/dL (65-110); Phosphorus 2.7 mg/dL (2.5-4.5); Potassium 3.6 mmol/L (3.4-5.0); Sodium 143 mmol/L (137-145)
[2022-06-19 16:56] LABS: Anisocytosis 2+ (NORMAL); Hypochromasia 1+ (NORMAL); Platelet Estimate Adequate (Adequate)
[2022-06-19 16:57] LABS: Schistocytes None Seen (NORMAL)
[2022-06-19 17:13] LABS: Glucose Point of Care 131 mg/dl (65-105)
[2022-06-19] MEDS: traZODone HCL 25 MG TABLET PO (22:11)
[2022-06-19] MEDS: ESCITALOPRAM OXALATE 10 MG TABLET 20 MG PO (22:11)
[2022-06-20 05:44] VITALS: BP 105/89; PULSE 62; RESP 18; TEMP 36.2; O2SAT 100
[2022-06-20 06:54] LABS: Basophils Absolute Auto 0.1 K/mm3 (0.0-0.1); Basophils Percent Auto 0.4 % (0.2-1.2); Eosinophils Percent Auto 0.2 % (0-4.4); Hematocrit 31.5 % (42.0-52.0); Hemoglobin 8.9 g/dL (14.0-18.0); Immature Granulocyte Absolute 0.26 K/mm3 (0.00-0.031); Immature Granulocyte Percent A 1.8 % (0-0.5); Lymphocytes Absolute Auto 2.13 K/mm3 (0.9-3.2); Lymphocytes Percent Auto 15.1 % (18.3-44.2); Mean Corpuscular HGB Conc 28.3 g/dl (32-36); Mean Corpuscular Hemoglobin 23.9 pg (26-34); Mean Corpuscular Volume 84.5 fl (80-100); Mean Platelet Volume 9.5 fl (7.4-10.4); Monocytes Absolute Auto 1.2 K/mm3 (0.1-0.6); Monocytes Percent Auto 8.6 % (2.6-8.5); Neutrophils Absolute Auto 10.4 K/mm3 (1.3-6.7); Neutrophils Percent Auto 73.9 % (45.5-73.1); Nucleated Red Blood Cells Absolute Auto 0.1 K/mm3 (0.0-0.012); Nucleated Red Blood Cells Perc 0.6 % (0.0-0.2); Platelet Count Result 225 k/mm3 (150-375); Red Blood Count 3.73 M/mm3 (4.6-6.20); Red Cell Distribution Width 24.4 % (11.5-14.5); White Blood Count 14.1 K/mm3 (4.5-10.0)
[2022-06-20 07:01] LABS: Alanine Aminotransferase 107 U/L (6-50); Albumin Level 2.9 g/dL (3.5-5.1); Alkaline Phosphatase 666 U/L (38-126); Anion Gap 7 mmol/L (8-16); Aspartate Amino Transferase 667 U/L (17-59); Bilirubin,Total 5.2 mg/dL (0.2-1.3); Blood Urea Nitrogen 36 mg/dL (9-20); Calcium 12.3 mg/dL (8.4-10.2); Carbon Dioxide 35 mmol/L (22-30); Chloride 110 mmol/L (98-107); Estimated CRCL calculation 39 ml/min; Estimated Glomerular Filt Rate 53; Glucose 142 mg/dL (65-110); Magnesium 2.1 mg/dL (1.6-2.3); Phosphorus 3.4 mg/dL (2.5-4.5); Potassium 4.3 mmol/L (3.4-5.0); Sodium 152 mmol/L (137-145)
[2022-06-20 08:00] VITALS: O2SAT 100
[2022-06-20 08:13] LABS: Platelet Estimate Adequate (Adequate)
[2022-06-20 08:16] LABS: Hypochromasia 1+ (NORMAL); Target Cells 1+ (NORMAL)
[2022-06-20 08:17] LABS: Anisocytosis 2+ (NORMAL); Ovalocytes 1+ (NORMAL); Schistocytes None Seen (NORMAL); Spherocytes 1+ (NORMAL)
[2022-06-20] MEDS: FLUTICASONE/SALMETEROL 115-21 MCG INHALER 1 PUFF 2 PUFF INHALATION (08:45)
[2022-06-20 09:22] LABS: Glucose Point of Care 138 mg/dl (65-105)
[2022-06-20 11:51] LABS: Glucose Point of Care 122 mg/dl (65-105)
--- NOTE | 2022-06-20 13:45 | PM.IMPN ---
Progress Note: A&P Assessment and Plan (1) Acute metabolic encephalopathy: Code(s): G93.41 - Metabolic encephalopathy Status: Acute Assessment and Plan: CT head showing no acute findings. TSH mildly elevated. CXR clear. UA clear. Had a nml WBC. Repeat CT brain showing no change. He remained confused. No hx of dementia and this is new findings. Calcium elevated in the 11-12 range. Confusion could be related to his markedly elevated calcium. CT Ch/A/P showing widespread metastatic disease. 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 Discussed with son and recommended hospice. Dr Anderson was notified of this change. Son will speak with the family and make a decision about how to proceed. Son called back and wants to make patient comfort measures. This was explained and he agrees to proceed. He will wait for hospice to contact him. Care cooridinator aware. (2) [place] cell carcinoma, unspecified: Code(s): C4A.9 - Carlos Enrique cell carcinoma, unspecified Status: Acute Assessment and Plan: As above. Suspect recurrence with aggressive spread. (3) Hypercalcemia: Code(s): E83.52 - Hypercalcemia Status: Acute Assessment and Plan: Calcium mildly elevated on admission but climbed to 11-12 range. 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 ICa elevated. iPTH appropriately low end of normal to suggest this has been going on for a while. AP also elevated but has been high for a while. PSA normal. SPEP showing acute inflammatory process. Vit D(25) was 28. TSH normal. Skeletal survey showing no acute findings. [place] hypercalcemia related to above. (4) Elevated LFTs: Code(s): R79.89 - Other specified abnormal findings of blood chemistry Status: Acute Assessment and Plan: LFTs have been elevated since last month but higher this admission and worsening. TBili up to 5.2 now. Total CK was 312 and trending down. Hepatitis panel negative. RUQ showing no mass lesions, biliary duct dilation or portal vein thrombus. Related to widespread malignancy. (5) Acute kidney failure: Code(s): N17.9 - Acute kidney failure, unspecified Status: Acute Assessment and Plan: Cr 2.0 on admission. Likely prerenal. He was started on IV fluids and Bumex on hold. Creatinine better now. Bumex resumed and he is tolerating this well. Cr 1.3 and at baseline. Follow. (6) Aortic stenosis: Code(s): I35.0 - Nonrheumatic aortic (valve) stenosis Status: Acute Assessment and Plan: Patient has critical with CHRISTIANO of 0.4. He was supposed to follow up with cardiology for consideration for TAVR but this has yet to be arranged. Not a candidate for TAVR. (7) Heart failure: Code(s): I50.9 - Heart failure, unspecified Status: Acute Assessment and Plan: Echo from earlier this month showed an EF of 55-60%. Echo from April 2022 showed moderate pulmonary hypertension, critical aortic valve stenosis, and abnormal diastolic function. Bumex resumed. (8) Atrial fibrillation: Code(s): I48.91 - Unspecified atrial fibrillation Status: Acute Assessment and Plan: Atrial flutter noted on EKG. Rate is controlled. Continue Eliquis. (9) Diabetes mellitus: Qualifiers: Diabetes mellitus complication status: without complication Diabetes mellitus mcc insulin use: without mcc use Diabetes mellitus type: type 2 Qualified Code(s): E11.9 - Type 2 diabetes mellitus without complications Code(s): E11.9 - Type 2 diabetes mellitus without complications Status: Acute Assessment and Plan: A1c 6.5 The patient's blood glucose was reviewed on 06/20 Glucose remains well controlled. Continue AccuCheks covering with sliding scale. Hypoglycemia protocol available as needed. Continue to monitor. (10) Anemia: Qualifiers: Anemia type: unspec
--- NOTE | 2022-06-20 13:58 | PCRCNOTE ---
Pt unable to perform inhalers to achieve proper deposition. Suggest PRN nebulizers and Budesonide BID in place of Advair. MD notified.
[2022-06-20] MEDS: MORPHINE SULFATE (*CRX) 2 MG/ML INJ IV PUSH (16:10)
[2022-06-20] MEDS: LORazepam INJ (*CRX) 2 MG/ML VIAL 1 MG IV PUSH ×2 (18:12→22:10)
[2022-06-20 19:33] VITALS: BP 119/65; PULSE 95; RESP 20; TEMP 36.5; O2SAT 100
[2022-06-20 20:32] VITALS: BP 123/50; PULSE 113; RESP 24; TEMP 36.7; O2SAT 93
[2022-06-20 22:03] LABS: Glucose Point of Care 115 mg/dl (65-105)
[2022-06-21] MEDS: LORazepam INJ (*CRX) 2 MG/ML VIAL 1 MG IV PUSH ×2 (05:44→09:34)
[2022-06-21] MEDS: MORPHINE SULFATE (*CRX) 2 MG/ML INJ IV PUSH (11:39)
--- NOTE | 2022-06-21 13:47 | PM.DS ---
DS: Admitting Diagnosis Discharge Date 06/21/22 Admitting Diagnosis Altered mental status DS: Discharge Diagnosis Discharge Diagnosis (1) Acute metabolic encephalopathy: Code(s): G93.41 - Metabolic encephalopathy Status: Acute (2) [place] cell carcinoma, unspecified: Code(s): C4A.9 - [place] cell carcinoma, unspecified Status: Acute (3) Hypercalcemia: Code(s): E83.52 - Hypercalcemia Status: Acute (4) Elevated LFTs: Code(s): R79.89 - Other specified abnormal findings of blood chemistry Status: Acute (5) Acute kidney failure: Code(s): N17.9 - Acute kidney failure, unspecified Status: Acute (6) Aortic stenosis: Code(s): I35.0 - Nonrheumatic aortic (valve) stenosis Status: Acute (7) Heart failure: Code(s): I50.9 - Heart failure, unspecified Status: Acute (8) Atrial fibrillation: Code(s): I48.91 - Unspecified atrial fibrillation Status: Acute (9) Diabetes mellitus: Qualifiers: Diabetes mellitus type: type 2 Diabetes mellitus continuous churn buttermaker insulin use: without fpc use Diabetes mellitus complication status: without complication Qualified Code(s): E11.9 - Type 2 diabetes mellitus without complications Code(s): E11.9 - Type 2 diabetes mellitus without complications Status: Acute (10) Anemia: Qualifiers: Anemia type: unspecified type Qualified Code(s): D64.9 - Anemia, unspecified Code(s): D64.9 - Anemia, unspecified Status: Acute DS: Summary Hospital Course Reason for hospitalization: 82yo male wit critical , DM, AFib and CHF here for altered mental status. Please see H&P for details Hospital Course: Patient brought to the hospital for altered mental status. CT head showing no acute findings. Lab work normal. No infections noted. He remained confused. No hx of dementia and this is new findings. Calcium mildly elevated on admission but climbed to 11-[address] Ch/A/P showing widespread metastatic disease including peritoneal carcinomatosis. 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 Discussed with son and recommended hospice. Son spoke with the family and made the decision to proceed with hospice care. Patient moved to inpatient hospice care. Status at Discharge Cognitive/behavioral status at discharge: Terminal Time Spent with Patient Time attestation: Total time spent providing and/or coordinating discharge services: 34 minutes Exam Narrative: AF 98.0 123/50 113 24 93% ra Gen - NARD lying flat in bed Chest - coarse anteriroly CV - RRR S1/S2 Abd - Soft Ext - No pedal edema Psych - obtunded Skin - Warm and dry DS: Data Data Completed and Pending Labs on day of discharge: Labs from last 24 hours 06/20/22 22:01 POC Capillary Glucose 115 H Discharge Plan Discharge Consulting providers: Raiza Parekh Discharging Clinician: Nicolas Ferrer Anticipated Discharge Date/Time: 06/21/22 13:53 Patient Disposition: Hospice - Medical Facility Activity: as tolerated Diet: as tolerated Patient Instructions: Antibiotic Form Stand Alone Forms: General Discharge Information Discharge Medications: Discontinued tamsulosin 0.4 mg capsule 0.4 mg PO DAILY atorvastatin [Lipitor] 80 mg tablet 80 mg PO DAILY ezetimibe [Zetia] 10 mg tablet 10 mg PO DAILY metformin 500 mg tablet extended release 24 hr 500 mg PO BID escitalopram oxalate 10 mg tablet 20 mg PO HS fluconazole [Diflucan] 100 mg Tablet 100 mg PO DAILY finasteride 5 mg Tablet 5 mg PO DAILY Saccharomyces boulardii [Florastor] 250 mg Capsule 250 mg PO BID Saline Nasal 0.65 % Aerosol,[place] 1 spray INTRANASAL BID albuterol sulfate 90 mcg/actuation HFA aerosol inhaler 1 puff INHALATION Q4-6H PRN (Reason: Shortness Of Breath Or Wheezing) pantoprazole 40 mg Tablet,Delayed Release (D
[2022-06-21 14:18] VITALS: BP 100/44; PULSE 115; RESP 26; TEMP 37.4; O2SAT 88
[2022-06-22 19:26] LABS: Kappa\\Lambda Light Chains 1.81 (0.26-1.65); Lambda Light Chain 19.5 mg/L (5.7-26.3)
[2022-06-24 16:51] LABS: Vitamin D 1,25 (OH)2 Total <8 pg/mL (18-72); Vitamin D2 1,25 (OH)2 <8 pg/mL; Vitamin D3 1,25 (OH)2 <8 pg/mL
[2022-06-28 17:32] LABS: Parathyroid Hormone Related Pr 14 pg/mL (11-20)
== END 2022-06-21 14:26 | disposition hospice, inpatient (51) | DRG 843 ==
LOC: ANHED 19:34 → ANH3MEDSUR 21:32
PROVIDERS: Admitting Provider Internal Medicine; Emergency Provider General Practice; PCP Internal Medicine; Visit Provider Internal Medicine
DX: C7B.1 Secondary Merkel cell carcinoma (principal); G93.41 Metabolic encephalopathy; N17.9 Acute kidney failure, unspecified; I50.22 Chronic systolic (congestive) heart failure; E86.0 Dehydration; E83.52 Hypercalcemia; E87.6 Hypokalemia; I65.29 Occlusion and stenosis of unspecified carotid artery; I35.0 Nonrheumatic aortic (valve) stenosis; E11.9 Type 2 diabetes mellitus without complications; E78.5 Hyperlipidemia, unspecified; J44.9 Chronic obstructive pulmonary disease, unspecified; D64.9 Anemia, unspecified; K20.90 Esophagitis, unspecified without bleeding; K44.9 Diaphragmatic hernia without obstruction or gangrene; N40.1 Benign prostatic hyperplasia with lower urinary tract symptoms; R35.0 Frequency of micturition; R29.6 Repeated falls; F41.8 Other specified anxiety disorders; F32.A Depression, unspecified; Z20.822 Contact with and (suspected) exposure to COVID-19; Z96.652 Presence of left artificial knee joint; Z85.821 Personal history of Merkel cell carcinoma; I25.2 Old myocardial infarction; Z79.01 Long term (current) use of anticoagulants; Z95.820 Peripheral vascular angioplasty status with implants and grafts; Z95.5 Presence of coronary angioplasty implant and graft; Z86.73 Personal history of transient ischemic attack (TIA), and cerebral infarction without residual deficits; Z87.891 Personal history of nicotine dependence
CPT/HCPCS: 36415; 51701; 70450; 71045; 71250; 72125; 72131; 73502; 74019; 74176; 76705; 77075; 80053; 80074; 81001; 82140; 82306; 82330; 82533; 82550; 82607; 82652; 82746; 82948; 83519; 83605; 83735; 83883; 83970; 84100; 84153; 84155; 84165; 84439; 84443; 84480; 85025; 85610; 85730; 87637; 92610; 93005; 94640; 96360; 96361; 97110; 97161; 97166; 97530; 97535; 99285; A9270; G0103; G0378; J1940; J2060; J2270; J3475; J7030

== ENCOUNTER 2022-06-21 15:24 | HOS | payer OTHER, MEDICARE, SELFPAY ==
--- NOTE | 2022-06-21 15:12 | ADMGEN ---
This patient, Robert Brady, was admitted to 3 [facility] Surg Room 322-01. Patient/family oriented to hospital policies and general routines including ID bracelet, bed and alarms, visiting hours, pain management, procedures, bathroom and other care routines, personal items, smoking policy, room service/diet, and visiting hours. Information on how to activate the Rapid Response Team has been discussed. Patient/Family are encouraged to report perceived risks to care and to ask questions if they do not understand what they are told or what they should do. patient now hospice patient
[2022-06-21 15:20] VITALS: BMI 24.5
[2022-06-21] MEDS: HYDROmorphone HCL/PF (*CRX) 50 MG in SODIUM CHLORIDE 0.9% IV 95 ML IV CONT (16:33)
[2022-06-21] MEDS: diazePAM INJ (*CRX) 10 MG/2 ML SYRINGE 5 MG IV PUSH ×2 (18:23→21:50)
--- NOTE | 2022-06-21 19:26 | PC.NURSE ---
Gabriella daughter in law at bedside. she has concerns that the patient is not comfortable r/t breathing. patient currently on dilaudid drip and had recently had valium. Hospice notified of family concerns.
[2022-06-21 19:30] VITALS: RESP 36; O2SAT 96
--- NOTE | 2022-06-21 21:48 | PM.IMHP ---
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 He is not ating or drinking and has uncontrolled pain. He was admitted to inpatient hsopice service for symptoms management. Review of Systems Review of Systems: ROS unobtainable: Yes unobtainable due to medical condition PMFSH Past Medical History Medical History Acute blood loss anemia Aortic stenosis BPH (benign prostatic hyperplasia) Carotid stenosis COPD (chronic obstructive pulmonary disease) Depression Depression with anxiety Diabetes mellitus Hemoglobin A1c of 8.5 Erosive esophagitis Essential hypertension Hearing loss Hiatal hernia History of heart attack Hyperlipidemia Stricture intestinal Surgical History Surgical History History of bilateral cataract extraction Approximately 2009 History of coronary artery stent placement , 1994 History of laparoscopic cholecystectomy History of right common carotid artery stent placement History of total left knee replacement Status post dilatation of esophageal stricture Family History Family History Mother Cerebrovascular accident Social History Social History (Updated 06/21/22 @ 21:50 by Giovanni Schmidt MD) Social History: The patient and his have been for the last 55 years. They have 3 adult sons who are in good health. He is a former smoker quit smoking about 25 years ago. He used to drink heavily in his youth but has not drank heavily in the last several years. He drinks about 6 beers a year at this time. No illicit substance use. He served in [employer] for 3 years and then retired from [employer]. Primary care physician: Dr. Mejia He lived with his youngest son however over last 2 months has been hospitalized or in long term (06/13/22). Code Status: DNR Smoking packs per day: 1 Smoking cigarettes per day: 20.0 Years smoked: 20 Smoking pack-years: 20.00 Smoking status: Never smoker Tobacco type: cigarettes Smoking end date: 06/12/94 Alcohol intake: never Substance use: never Substance use type: does not use Lack of Transportation: YES Lack of Food: Never True Current Housing: I Have Housing Concerned About Future Housing: No Difficulty Paying Gas/Electric Bills: No Difficulty Paying for Meds: No Currently Unemployed: No Education: High School Diploma/GED Difficulty w/ Childcare or Family Care: No Gender identity (if verbalized by the patient): Male Sexual Orientation (if Verbalized by the Patient): Straight or Heterosexual Spiritual care concerns: No Meds Home Medications and Allergies Allergies Allergy/AdvReac Type Severity Reaction Status Date / Time No Known Allergies Allergy Unknown Unknown Verified 05/10/22 20:09 Vital Signs Vital Signs - 24 hr 06/21/22 15:20 06/21/22 19:30 Respiratory Rate 36 H Pulse Oximetry 96 Oxygen Delivery Room Air Nasal Cannula Oxygen Flow Rate 2 Exam Narrative: Expoired prior to exam Assessment and Plan Assessment and plan (1) Palliative care encounter: Code(s): Z51.5 - Encounter for palliative care Status: Acute Assessment and Plan: Meets inpatient hospice criteria due to requiring continuous IV narotic for analgesia and scheduled IV benzo for agitation (2) Encephalopathy: Code(s): G93.40 - Encephalopathy, unspecified Status: Acute (3) Depression with anxiety: Code(s): F41.8 - Other specified anxiety disorders Status: Acute (4) Heart failure: Code(s): I50.9 - Heart failure, unspecified Status: Acute (5) Acute kidney failure: Code(s): N17.9 - Acute kidney failure, unspecified
[2022-06-21] MEDS: HYDROmorphone HCL INJ (*CRX) 1 MG/ML SYR IV PUSH (21:51)
--- NOTE | 2022-06-23 12:13 | P.DN_ITS ---
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 Medications were titrated to comfort. Mr. Brady peacefully. Additional Data Confirmation of as documented by pronouncing clinician: Pupillary Reflex, Palpable Pulses, Response to Stimuli, Heart Tones and Breath Sounds Name of Provider Notified: Brayan Time Provider Notified: 01:50 Marine Mechanic Notified: Yes Date [facility] Notified of : 06/22/22 Time [facility] Notified of : 01:42
== END 2022-06-22 01:28 | disposition expired | DRG 951 ==
PROVIDERS: Admitting Provider Internal Medicine; PCP Internal Medicine; Visit Provider Internal Medicine
DX: Z51.5 Encounter for palliative care (principal); G93.40 Encephalopathy, unspecified; C79.9 Secondary malignant neoplasm of unspecified site; N17.9 Acute kidney failure, unspecified; C4A.9 Merkel cell carcinoma, unspecified; E11.9 Type 2 diabetes mellitus without complications; I11.0 Hypertensive heart disease with heart failure; I50.9 Heart failure, unspecified; I48.91 Unspecified atrial fibrillation; I35.0 Nonrheumatic aortic (valve) stenosis; Z87.891 Personal history of nicotine dependence
CPT/HCPCS: A9270; J1170; J3360